=== PATIENT | female | born 1945 | race Caucasian/White ===

== ENCOUNTER 2019-09-29 10:51 | Outpatient (CLI) | payer MEDICARE, SELFPAY ==
[2019-09-29 11:25] LABS: Hematocrit 31.5 % (37.0-47.0); Hemoglobin 10.2 g/dL (12.0-15.0); Mean Corpuscular HGB Conc 32.4 g/dl (32-36); Mean Corpuscular Hemoglobin 29.1 pg (26-34); Mean Corpuscular Volume 89.7 fl (80-100); Mean Platelet Volume 9.5 fl (7.4-10.4); Platelet Count Result 372 k/mm3 (150-375); Red Blood Count 3.51 M/mm3 (4.2-5.4); Red Cell Distribution Width 14.2 % (11.5-14.5); White Blood Count 6.4 K/mm3 (4.5-10.0)
[2019-09-29 11:39] LABS: Alanine Aminotransferase 21 U/L (4-35); Albumin Level 4.3 g/dL (3.5-5.1); Alkaline Phosphatase 122 U/L (38-126); Aspartate Amino Transferase 31 U/L (14-36); Bilirubin,Total 0.4 mg/dL (0.2-1.3); Blood Urea Nitrogen 19 mg/dL (7-17); Calcium 9.2 mg/dL (8.4-10.2); Carbon Dioxide 28 mmol/L (22-30); Chloride 101 mmol/L (98-107); Cholesterol 203 mg/dL (0-200); Estimated Glomerular Filt Rate > 60; Glucose 90 mg/dL (65-105); HDL Direct 70 mg/dL; Potassium 4.3 mmol/L (3.4-5.0); Sodium 135 mmol/L (137-145); Triglycerides 69 mg/dL (<150)
[2019-09-29 11:52] LABS: LDL Cholesterol Direct 109 mg/dL
[2019-09-29 12:20] LABS: Iron 125 ug/dL (37-170)
[2019-09-29 12:30] LABS: Percent Iron Saturation 40 % (20-50)
[2019-09-29 12:37] LABS: Free T4 Free Thyroxine 0.88 ng/mL (0.78-2.19)
[2019-09-29 12:45] LABS: Folic Acid > 20.0 ng/mL (2.76->20)
== END 2019-09-29 10:52 | disposition home or self-care (01) ==
PROVIDERS: PCP Internal Medicine; Visit Provider Internal Medicine
DX: I10 Essential (primary) hypertension (principal); E03.9 Hypothyroidism, unspecified; E78.5 Hyperlipidemia, unspecified; R53.83 Other fatigue; D64.9 Anemia, unspecified
CPT/HCPCS: 36415; 80053; 80061; 82607; 82746; 83540; 83550; 84439; 84443; 85027

== ENCOUNTER 2019-10-23 16:10 | Emergency (ER) | payer MEDICARE, SELFPAY ==
--- NOTE | ~2019-10-23 | XR_ITS ---
EXAMINATION: XR hand RT min 3V INDICATION: Right hand pain TECHNIQUE: Three views of the right hand are obtained. COMPARISON: None available FINDINGS: Evaluation of the fourth proximal phalanx is slightly limited by a ring on the finger. No f racture, dislocation, or subluxation is identified. There is moderate to severe osteoarthritis involv ing multiple interphalangeal joints. Dorsal soft tissue swelling is seen overlying the metacarpals wi thout underlying osseous abnormality. IMPRESSION: 1. Dorsal soft tissue swelling of the hand overlying the metacarpals without underlying osseous abnor mality. 2. Polyarticular osteoarthritis. Reviewed, dictated and finalized at location A. IMPRESSION: 1. Dorsal soft tissue swelling of the hand overlying the metacarpals without un derlying osseous abnormality. 2. Polyarticular osteoarthritis.
[2019-10-23 17:07] VITALS: BP 177/55; PULSE 76; RESP 16; TEMP 37.1; O2SAT 97
--- NOTE | 2019-10-23 19:20 | ED.WOUNDLAC ---
HPI - Wound/Laceration General Chief Complaint: Wound/Laceration Stated Complaint: BIT BY MY DOG Time Seen by Provider: 10/23/19 19:13 History of Present Illness HPI narrative: Patient is a 73-year-old female who presents the ER with dog bite to her right hand. Patient thought her Labrador had a burst stuck to it and she pulled on it and apparently hurt the dog which then bit at her. She has a large laceration over the dorsum of her hand. No new numbness or tingling to the fingers. No no limitation in range of motion from the bite but she does have some arthritis of her fingers and hand. Her tetanus shot is not up-to-date but the dog's shots are all up-to-date. She has wrapped her hand and bleeding is controlled. No additional injuries. Related Data Home Medications Medication Instructions Recorded Confirmed estradiol 0.5 mg DAILY 04/04/19 05/05/19 lisinopril 20 mg DAILY 04/04/19 05/05/19 methadone 5 mg Q3-6H 04/04/19 05/05/19 omeprazole 40 mg DAILY 04/04/19 05/05/19 ondansetron HCl 4 mg tablet 4 mg PO Q6H 05/10/19 vexybx-hgrwrffh-gxpsegj 1 cap PO BID 09/20/19 24,000-76,000-120,000 unit capsule,delayed rel Allergies Allergy/AdvReac Type Severity Reaction Status Date / Time morphine Allergy Severe Vomiting Verified 09/20/19 10:45 nalbuphine Allergy Severe Vomiting Verified 09/20/19 10:45 Sulfa (Sulfonamide Allergy Severe Vomiting Verified 09/20/19 10:45 Antibiotics) Review of Systems Musculoskeletal: Musculoskeletal: Denies arthralgias, Denies joint swelling and Denies muscle cramps Integumentary/Breasts: Comments: Laceration dorsum of right hand. Neurologic: Denies focal weakness and Denies numbness [facility] Past Medical History Medical History (Updated 10/23/19 @ 20:36 by Guero Jean MD) Anemia Arthritis Asthma Cervical spine fracture Chronic back pain DDD (degenerative disc disease) Degenerative arthritis of knee, bilateral Duodenal papillary stenosis Endometriosis GERD (gastroesophageal reflux disease) History of rectal polyps HTN (hypertension) Hypothyroid IBS (irritable bowel syndrome) MVP (mitral valve prolapse) Osteoporosis Peripheral neuropathy PVD (peripheral vascular disease) Shingles Surgical History Surgical History H/O bilateral cataract extraction H/O cervical spine surgery H/O colonoscopy H/O dilation and curettage H/O removal of cyst H/O rotator cuff surgery H/O: hysterectomy History of lumbar surgery (~2000) Hx of appendectomy Hx of cholecystectomy Hx of tonsillectomy Social History Social History Smoking status: Never smoker Second hand tobacco smoke exposure: No Alcohol intake: never Additional living arrangements comments: S[facility] Gender identity (if verbalized by the patient): Female Exam Narrative: Exam Narrative: GENERAL: Well-appearing, well-nourished, and in no acute distress. HEAD: Normocephalic, atraumatic. HEART: Regular rate and rhythm. Normal peripheral pulses. EXTREMITIES: Focused exam of the right hand shows intact range of motion of the wrist/fingers with no sharp or soft touch abnormality. Radial pulses intact with brisk capillary refill. SKIN: Warm, dry, no rash. Laceration to the dorsum of the right hand that is exposing a superficial vein the hand. Deep structures intact. Laceration measures 5.5 cm and is a flap without foreign body in a bloodless field. NEURO: No focal deficits. Alert and oriented x3. PSYCH: Normal mood and affect. Course Course Emergency Course: Wound was loosely approximated given that is a bite injury. Discharged with Augmentin and [place]. Patient plans to follow-up with Dr. Andrews the hand surgeon in [facility]. Vital Signs Vital signs: Vital Signs Temperature 98.7 F 10/23/19 17:07 Pulse Rate 76 10/23/19 17:07 Respiratory Rate 16 10/23/19 17:07 Blood Pressure 177/55 H 06/2
[2019-10-23 19:32] VITALS: BP 192/82; PULSE 77; O2SAT 100
[2019-10-23] MEDS: TETANUS,DIPHTHERIA,AC PERTUSSIS ADULT (0.5 ML) BOOSTRIX IM (19:56)
[2019-10-23] MEDS: LIDO 1%/EPINEPHRINE 1:100,000 20 ML VIAL 5 ML INFILTRATE (20:42)
[2019-10-23 21:36] VITALS: BP 139/90; PULSE 84; O2SAT 98
== END 2019-10-23 20:56 | disposition home or self-care (01) ==
PROVIDERS: Emergency Provider Emergency Medicine; PCP Internal Medicine
DX: S61.451A Open bite of right hand, initial encounter (principal); Z86.2 Personal history of diseases of the blood and blood-forming organs and certain disorders involving the immune mechanism; M19.90 Unspecified osteoarthritis, unspecified site; J45.909 Unspecified asthma, uncomplicated; M17.0 Bilateral primary osteoarthritis of knee; I10 Essential (primary) hypertension; E03.9 Hypothyroidism, unspecified; I34.1 Nonrheumatic mitral (valve) prolapse; M81.0 Age-related osteoporosis without current pathological fracture; I73.9 Peripheral vascular disease, unspecified; G62.9 Polyneuropathy, unspecified; Z98.42 Cataract extraction status, left eye; Z98.41 Cataract extraction status, right eye; M19.041 Primary osteoarthritis, right hand; Z23 Encounter for immunization; W54.0XXA Bitten by dog, initial encounter
CPT/HCPCS: 12002; 73130; 90471; 90715; 99283; A9270

== ENCOUNTER 2019-12-14 11:35 | Outpatient (CLI) | payer MEDICARE, SELFPAY ==
--- NOTE | ~2019-12-14 | XR_ITS ---
XR chest 2V DATE: 12/14/2019 11:55 INDICATION: Persistent cough; Covid infection for 2 weeks. TECHNIQUE: PA and lateral views COMPARISON: 02/17/2019 PA and lateral chest FINDINGS: There is bilateral hyperinflation consistent with COPD. No interval pulmonary infiltrate or consolidation, pleural effusion or pulmonary vascular congestion or pneumothorax is detected since . Normal heart size. No hilar or mediastinal enlargement. Surgical clips overlie the lower mid cervical area. There is apparent resection of the lateral aspect of the right clavicle. There is some calcification overlying the superior aspect of the greater tuberosity. Surgical clips overlie the upper anterior abdomen on lateral view. IMPRESSION: Bilateral hyperinflation consistent with COPD; no interval pulmonary infiltrate or consol idation Reviewed, dictated and finalized at location A. IMPRESSION: Bilateral hyperinflation consistent with COPD; no interval pulmonar y infiltrate or consolidation
[2019-12-14 12:02] LABS: Basophils Absolute Auto 0.1 K/mm3 (0.0-0.1); Basophils Percent Auto 1.2 % (0.2-1.2); Eosinophils Absolute Auto 0.1 K/mm3 (0-0.3); Eosinophils Percent Auto 1.8 % (0-4.4); Hematocrit 32.9 % (37.0-47.0); Hemoglobin 10.6 g/dL (12.0-15.0); Immature Granulocyte Absolute 0.01 K/mm3 (0.00-0.031); Immature Granulocyte Percent A 0.1 % (0-0.5); Lymphocytes Absolute Auto 2.89 K/mm3 (0.9-3.2); Lymphocytes Percent Auto 42.9 % (18.3-44.2); Mean Corpuscular HGB Conc 32.2 g/dl (32-36); Mean Corpuscular Hemoglobin 28.8 pg (26-34); Mean Corpuscular Volume 89.4 fl (80-100); Mean Platelet Volume 9.3 fl (7.4-10.4); Monocytes Absolute Auto 0.7 K/mm3 (0.1-0.6); Monocytes Percent Auto 9.9 % (2.6-8.5); Neutrophils Percent Auto 44.1 % (45.5-73.1); Platelet Count Result 566 k/mm3 (150-375); Red Blood Count 3.68 M/mm3 (4.2-5.4); Red Cell Distribution Width 12.8 % (11.5-14.5); White Blood Count 6.7 K/mm3 (4.5-10.0)
[2019-12-14 12:15] LABS: Alanine Aminotransferase 28 U/L (4-35); Albumin Level 4.1 g/dL (3.5-5.1); Alkaline Phosphatase 133 U/L (38-126); Anion Gap 11 mmol/L (8-16); Aspartate Amino Transferase 43 U/L (14-36); Bilirubin,Total 0.2 mg/dL (0.2-1.3); Blood Urea Nitrogen 19 mg/dL (7-17); Calcium 9.3 mg/dL (8.4-10.2); Carbon Dioxide 30 mmol/L (22-30); Chloride 97 mmol/L (98-107); Estimated Glomerular Filt Rate 49; Glucose 113 mg/dL (65-105); Potassium 3.9 mmol/L (3.4-5.0); Sodium 138 mmol/L (137-145)
[2019-12-14 12:46] LABS: Thyroid Stimulating Hormone 0.274 uIU/mL (0.465-4.680)
[2019-12-14 13:23] LABS: Folic Acid > 20.0 ng/mL (2.76->20); Vitamin B12 > 1000.0 pg/mL (239-931)
== END 2019-12-14 11:36 | disposition home or self-care (01) ==
LOC: ANHLAB 11:39
PROVIDERS: PCP Internal Medicine; Visit Provider Internal Medicine
DX: R05 Cough (principal); R53.83 Other fatigue; R91.8 Other nonspecific abnormal finding of lung field
CPT/HCPCS: 36415; 71046; 80053; 82607; 82746; 84443; 85025

== ENCOUNTER 2020-05-10 16:25 | Outpatient (CLI) | payer MEDICARE, SELFPAY ==
[2020-05-10 16:55] LABS: Basophils Percent Auto 0.5 % (0.2-1.2); Eosinophils Absolute Auto 0.3 K/mm3 (0-0.3); Eosinophils Percent Auto 3.4 % (0-4.4); Hematocrit 31.7 % (37.0-47.0); Hemoglobin 10.2 g/dL (12.0-15.0); Immature Granulocyte Absolute 0.03 K/mm3 (0.00-0.031); Immature Granulocyte Percent A 0.4 % (0-0.5); Lymphocytes Absolute Auto 1.32 K/mm3 (0.9-3.2); Lymphocytes Percent Auto 17.7 % (18.3-44.2); Mean Corpuscular HGB Conc 32.2 g/dl (32-36); Mean Corpuscular Hemoglobin 29.8 pg (26-34); Mean Corpuscular Volume 92.7 fl (80-100); Mean Platelet Volume 9.4 fl (7.4-10.4); Monocytes Absolute Auto 0.9 K/mm3 (0.1-0.6); Monocytes Percent Auto 12.3 % (2.6-8.5); Neutrophils Absolute Auto 4.9 K/mm3 (1.3-6.7); Neutrophils Percent Auto 65.7 % (45.5-73.1); Platelet Count Result 335 k/mm3 (150-375); Red Blood Count 3.42 M/mm3 (4.2-5.4); Red Cell Distribution Width 13.2 % (11.5-14.5); White Blood Count 7.5 K/mm3 (4.5-10.0)
[2020-05-10 17:08] LABS: Alanine Aminotransferase 33 U/L (4-35); Alkaline Phosphatase 113 U/L (38-126); Anion Gap 6 mmol/L (8-16); Aspartate Amino Transferase 39 U/L (14-36); Bilirubin,Total 0.5 mg/dL (0.2-1.3); Blood Urea Nitrogen 16 mg/dL (7-17); Carbon Dioxide 30 mmol/L (22-30); Chloride 97 mmol/L (98-107); Estimated Glomerular Filt Rate > 60; Glucose 103 mg/dL (65-105); Potassium 4.6 mmol/L (3.4-5.0); Sodium 133 mmol/L (137-145)
[2020-05-10 17:38] LABS: Thyroid Stimulating Hormone 0.151 uIU/mL (0.465-4.680)
[2020-05-10 18:13] LABS: Folic Acid 17.8 ng/mL (2.76->20)
[2020-05-10 18:46] LABS: Iron 72 ug/dL (37-170)
[2020-05-10 18:55] LABS: Percent Iron Saturation 22 % (20-50)
[2020-05-10 19:04] LABS: Free T4 Free Thyroxine 1.12 ng/mL (0.78-2.19)
[2020-05-13 11:48] LABS: Vitamin D 25 Hydroxy 23.3 ng/mL
== END 2020-05-10 16:26 | disposition home or self-care (01) ==
LOC: ANHLAB 16:27
PROVIDERS: PCP Internal Medicine; Visit Provider Internal Medicine
DX: R53.83 Other fatigue (principal); E03.9 Hypothyroidism, unspecified; D64.9 Anemia, unspecified; R79.89 Other specified abnormal findings of blood chemistry
CPT/HCPCS: 36415; 80053; 82306; 82607; 82746; 83540; 83550; 84439; 84443; 85025

== ENCOUNTER 2020-09-19 10:55 | Outpatient (CLI) | payer MEDICARE, SELFPAY ==
[2020-09-19 12:06] LABS: Iron 75 ug/dL (37-170)
[2020-09-19 12:23] LABS: Percent Iron Saturation 24 % (20-50)
[2020-09-19 12:24] LABS: Free T4 Free Thyroxine 1.29 ng/mL (0.78-2.19)
[2020-09-19 14:07] LABS: Basophils Absolute Auto 0.1 K/mm3 (0.0-0.1); Basophils Percent Auto 0.9 % (0.2-1.2); Eosinophils Absolute Auto 0.2 K/mm3 (0-0.3); Eosinophils Percent Auto 2.5 % (0-4.4); Hematocrit 32.3 % (37.0-47.0); Hemoglobin 10.1 g/dL (12.0-15.0); Immature Granulocyte Absolute 0.02 K/mm3 (0.00-0.031); Immature Granulocyte Percent A 0.3 % (0-0.5); Lymphocytes Absolute Auto 2.11 K/mm3 (0.9-3.2); Lymphocytes Percent Auto 27.5 % (18.3-44.2); Mean Corpuscular HGB Conc 31.3 g/dl (32-36); Mean Corpuscular Hemoglobin 29.1 pg (26-34); Mean Corpuscular Volume 93.1 fl (80-100); Mean Platelet Volume 9.7 fl (7.4-10.4); Monocytes Absolute Auto 0.6 K/mm3 (0.1-0.6); Monocytes Percent Auto 7.7 % (2.6-8.5); Neutrophils Absolute Auto 4.7 K/mm3 (1.3-6.7); Neutrophils Percent Auto 61.1 % (45.5-73.1); Platelet Count Result 337 k/mm3 (150-375); Red Blood Count 3.47 M/mm3 (4.2-5.4); Red Cell Distribution Width 14.1 % (11.5-14.5); White Blood Count 7.7 K/mm3 (4.5-10.0)
[2020-09-19 17:24] LABS: Vitamin D 25 Hydroxy 37.6 ng/mL
[2020-09-19 18:56] LABS: Alanine Aminotransferase 17 U/L (4-35); Albumin Level 4.4 g/dL (3.5-5.1); Alkaline Phosphatase 93 U/L (38-126); Anion Gap 8 mmol/L (8-16); Aspartate Amino Transferase 30 U/L (14-36); Bilirubin,Total 0.2 mg/dL (0.2-1.3); Blood Urea Nitrogen 20 mg/dL (7-17); Calcium 9.9 mg/dL (8.4-10.2); Carbon Dioxide 29 mmol/L (22-30); Chloride 103 mmol/L (98-107); Cholesterol 187 mg/dL (0-200); Estimated Glomerular Filt Rate 54; Glucose 90 mg/dL (65-105); HDL Direct 71 mg/dL; Potassium 4.8 mmol/L (3.4-5.0); Sodium 140 mmol/L (137-145); Triglycerides 72 mg/dL (<150)
[2020-09-19 19:07] LABS: LDL Cholesterol Direct 87 mg/dL
[2020-09-19 19:27] LABS: Thyroid Stimulating Hormone 0.036 uIU/mL (0.465-4.680)
[2020-09-19 20:02] LABS: Folic Acid 14.7 ng/mL (2.76->20)
== END 2020-09-19 10:56 | disposition home or self-care (01) ==
PROVIDERS: PCP Internal Medicine; Referring Provider Physician Assistant; Visit Provider Internal Medicine
DX: R53.83 Other fatigue (principal); E03.9 Hypothyroidism, unspecified; D64.9 Anemia, unspecified; E78.5 Hyperlipidemia, unspecified; E55.9 Vitamin D deficiency, unspecified
CPT/HCPCS: 36415; 80053; 80061; 82306; 82607; 82746; 83540; 83550; 84439; 84443; 85025

== ENCOUNTER 2021-02-17 09:00 | Outpatient (CLI) | payer MEDICARE, SELFPAY ==
[2021-02-17 10:11] LABS: Basophils Absolute Auto 0.1 K/mm3 (0.0-0.1); Basophils Percent Auto 0.4 % (0.2-1.2); Eosinophils Absolute Auto 0.1 K/mm3 (0-0.3); Eosinophils Percent Auto 0.8 % (0-4.4); Hematocrit 31.5 % (37.0-47.0); Immature Granulocyte Absolute 0.11 K/mm3 (0.00-0.031); Immature Granulocyte Percent A 0.6 % (0-0.5); Lymphocytes Percent Auto 28.6 % (18.3-44.2); Mean Corpuscular HGB Conc 31.7 g/dl (32-36); Mean Corpuscular Hemoglobin 29.4 pg (26-34); Mean Corpuscular Volume 92.6 fl (80-100); Mean Platelet Volume 9.8 fl (7.4-10.4); Monocytes Absolute Auto 1.2 K/mm3 (0.1-0.6); Neutrophils Absolute Auto 10.7 K/mm3 (1.3-6.7); Neutrophils Percent Auto 62.6 % (45.5-73.1); Platelet Count Result 467 k/mm3 (150-375); Red Cell Distribution Width 14.4 % (11.5-14.5); White Blood Count 17.1 K/mm3 (4.5-10.0)
[2021-02-17 10:28] LABS: Alanine Aminotransferase 21 U/L (4-35); Albumin Level 4.3 g/dL (3.5-5.1); Alkaline Phosphatase 84 U/L (38-126); Anion Gap 4 mmol/L (8-16); Aspartate Amino Transferase 26 U/L (14-36); Bilirubin,Total 0.3 mg/dL (0.2-1.3); Blood Urea Nitrogen 23 mg/dL (7-17); Calcium 9.2 mg/dL (8.4-10.2); Carbon Dioxide 33 mmol/L (22-30); Chloride 102 mmol/L (98-107); Estimated Glomerular Filt Rate > 60; Glucose 95 mg/dL (65-110); Potassium 4.1 mmol/L (3.4-5.0); Sodium 139 mmol/L (137-145)
[2021-02-17 10:59] LABS: Cortisol Random 1.29 ug/dL; Thyroid Stimulating Hormone 0.066 uIU/mL (0.465-4.680)
[2021-02-17 11:12] LABS: Iron 71 ug/dL (37-170)
[2021-02-17 11:25] LABS: Percent Iron Saturation 22 % (20-50)
[2021-02-17 12:08] LABS: Free T4 Free Thyroxine 1.41 ng/mL (0.78-2.19)
[2021-02-17 13:04] LABS: Vitamin D 25 Hydroxy 24.5 ng/mL
[2021-02-19 18:33] LABS: Adrenocorticotropic Hormone <5 pg/mL (6-50)
[2021-02-20 04:32] LABS: Triiodothyronine T3 Free 2.4 pg/mL (2.3-4.2)
[2021-02-21 04:13] LABS: Thyroid Peroxidase Antibodies 54 IU/mL (<9)
== END 2021-02-17 09:01 | disposition home or self-care (01) ==
LOC: ANHLAB 09:16
PROVIDERS: PCP Internal Medicine; Visit Provider Internal Medicine Endocrinology, Diabetes & Metabolism
DX: E03.9 Hypothyroidism, unspecified (principal); R53.83 Other fatigue; E55.9 Vitamin D deficiency, unspecified
CPT/HCPCS: 36415; 80053; 82024; 82306; 82533; 82728; 83540; 83550; 84439; 84443; 84481; 85025; 86376

== ENCOUNTER → 2021-03-05 07:52 | Outpatient (CLI) | payer MEDICARE, SELFPAY ==
[2021-03-05 17:30] LABS: SARS-CoV-2 RNA PCR Negative
== END ==
PROVIDERS: PCP Internal Medicine; Visit Provider Internal Medicine
DX: R05.9 Cough, unspecified (principal); Z20.822 Contact with and (suspected) exposure to COVID-19
CPT/HCPCS: C9803; U0003; U0005

== ENCOUNTER 2021-05-27 09:19 | Outpatient (CLI) | payer MEDICARE, SELFPAY ==
--- NOTE | ~2021-05-27 | CT_ITS ---
EXAMINATION: CT abdomen w con DATE: 05/27/2021 10:05 INDICATION: Epigastric pain TECHNIQUE: Computed tomography (CT) of the abdomen and pelvis was performed with 100 cc Omnipaque 350 intravenous contrast. The dose-length product was 114.24 mGy-cm. Automated exposure control and iter ative reconstruction technique were employed. COMPARISON: CT dated 11/18/2018. FINDINGS: There is right middle lobe atelectasis with bronchiectasis. No significant pleural or peric ardial effusion. Heart size is normal. Status post cholecystectomy. There is pneumobilia. There are c alcified granulomas of the spleen. There is pancreatic atrophy. The adrenal glands and left kidney are unremarkable. There is a cyst of the right kidney posteriorly. No acute osseous abnormality. No free air or free fluid. Nonobstructive bowel gas pattern. Mild assistant grocery store manager kiana mesenteric infiltration, nonspecific. IMPRESSION: 1. No acute abdominal abnormality. 2: Chronic right middle lobe atelectasis/scarring with bronchiectasis. Reviewed, dictated and finalized at location B. CONTROL SPECIALIST
[2021-05-27 09:59] LABS: Estimated Glomerular Filt Rate 40
[2021-05-27 10:28] LABS: Hematocrit 30.5 % (37.0-47.0); Hemoglobin 9.8 g/dL (12.0-15.0); Mean Corpuscular HGB Conc 32.1 g/dl (32-36); Mean Corpuscular Volume 90.2 fl (80-100); Mean Platelet Volume 9.8 fl (7.4-10.4); Platelet Count Result 281 k/mm3 (150-375); Red Blood Count 3.38 M/mm3 (4.2-5.4); Red Cell Distribution Width 12.5 % (11.5-14.5); White Blood Count 6.5 K/mm3 (4.5-10.0)
[2021-05-27 10:44] LABS: Alanine Aminotransferase 14 U/L (4-35); Albumin Level 4.1 g/dL (3.5-5.1); Alkaline Phosphatase 92 U/L (38-126); Amylase 75 U/L (30-110); Anion Gap 8 mmol/L (8-16); Aspartate Amino Transferase 28 U/L (14-36); Bilirubin,Total 0.4 mg/dL (0.2-1.3); Blood Urea Nitrogen 22 mg/dL (7-17); Calcium 9.3 mg/dL (8.4-10.2); Carbon Dioxide 27 mmol/L (22-30); Chloride 97 mmol/L (98-107); Estimated Glomerular Filt Rate 44; Glucose 96 mg/dL (65-110); Lipase 60 U/L (23-300); Potassium 4.7 mmol/L (3.4-5.0); Sodium 132 mmol/L (137-145)
== END 2021-05-27 09:20 | disposition home or self-care (01) ==
LOC: ANHIMG 09:27
PROVIDERS: PCP Internal Medicine; Visit Provider Nurse Practitioner
DX: R14.0 Abdominal distension (gaseous) (principal); R10.31 Right lower quadrant pain; R68.81 Early satiety; R11.2 Nausea with vomiting, unspecified
CPT/HCPCS: 74160; 80048; 80076; 82150; 83690; 85027; Q9967

== ENCOUNTER 2021-06-12 12:23 | Outpatient (CLI) | payer MEDICARE, SELFPAY ==
--- NOTE | 2021-06-12 13:16 | ECG_ITS ---
Measurements Intervals [place] Rate: 73 P: 81 MS: 167 QRS: 48 QRSD: 83 T: 59 QT: 403 QTc: 445 Interpretive Statements SINUS RHYTHM ATRIAL PREMATURE COMPLEXES BASELINE WANDER- I, II, V3 BORDERLINE ECG Electronically Signed On 06-12-2021 14:16:42 COREMAKING MACHINE OPERATOR by Felix Campos D.O.
[2021-06-12 13:17] LABS: Hematocrit 32.9 % (37.0-47.0); Hemoglobin 10.6 g/dL (12.0-15.0); Immature Reticulocyte Fraction 6.8 % (3.0-15.9); Mean Corpuscular HGB Conc 32.2 g/dl (32-36); Mean Corpuscular Hemoglobin 29.4 pg (26-34); Mean Corpuscular Volume 91.4 fl (80-100); Mean Platelet Volume 9.9 fl (7.4-10.4); Platelet Count Result 321 k/mm3 (150-375); Reticulocyte Hemoglobin Conten 33.8 pg (28.2-35.7); Reticulocyte Percent 0.85 % (0.7-4.3); Reticulocytes Absolute 0.03 B/L (32.2-175.7); White Blood Count 14.6 K/mm3 (4.5-10.0)
[2021-06-12 13:37] LABS: Iron 119 ug/dL (37-170)
[2021-06-12 14:50] LABS: Folic Acid 11.4 ng/mL (2.76->20); Vitamin B12 > 1000.0 pg/mL (239-931)
[2021-06-15 13:43] LABS: Haptoglobin 180 mg/dL (43-212)
[2021-06-17 14:02] LABS: Hemoglobin 10.5 g/dL (11.7-15.5); MCH 29.8 pg (27.0-33.0); MCV 91.1 fL (80.0-100.0); RDW 13.9 % (11.0-15.0); Red Blood Cell Count 3.51 Mill/uL (3.80-5.10)
== END 2021-06-12 12:24 | disposition home or self-care (01) ==
PROVIDERS: PCP Internal Medicine; Visit Provider Internal Medicine Gastroenterology
DX: I49.9 Cardiac arrhythmia, unspecified (principal); R63.4 Abnormal weight loss; D64.9 Anemia, unspecified; K21.9 Gastro-esophageal reflux disease without esophagitis; R10.84 Generalized abdominal pain; K86.1 Other chronic pancreatitis; R94.31 Abnormal electrocardiogram [ECG] [EKG]
CPT/HCPCS: 36415; 82607; 82746; 83010; 83021; 83540; 85027; 85046; 93005

== ENCOUNTER 2021-06-18 10:36 | Outpatient (CLI) | payer MEDICARE, SELFPAY ==
[2021-06-18 11:49] LABS: Vitamin D 25 Hydroxy 39.9 ng/mL
[2021-06-18 12:37] LABS: Cortisol Random 6.16 ug/dL
[2021-06-18 13:18] LABS: Folic Acid 17.1 ng/mL (2.76->20); Vitamin B12 > 1000.0 pg/mL (239-931)
[2021-06-23 04:59] LABS: Adrenocorticotropic Hormone 20 pg/mL (6-50)
== END 2021-06-18 10:37 | disposition home or self-care (01) ==
PROVIDERS: PCP Internal Medicine; Visit Provider Internal Medicine Endocrinology, Diabetes & Metabolism
DX: E55.9 Vitamin D deficiency, unspecified (principal); R53.83 Other fatigue; E53.8 Deficiency of other specified B group vitamins
CPT/HCPCS: 36415; 82024; 82306; 82533; 82607; 82746

== ENCOUNTER 2021-09-27 07:45 | Outpatient (CLI) | payer MEDICARE, SELFPAY ==
[2021-09-27 08:30] LABS: Alanine Aminotransferase 15 U/L (6-35); Albumin Level 4.4 g/dL (3.5-5.1); Alkaline Phosphatase 111 U/L (38-126); Anion Gap 5 mmol/L (8-16); Aspartate Amino Transferase 30 U/L (14-36); Bilirubin,Total 0.3 mg/dL (0.2-1.3); Blood Urea Nitrogen 20 mg/dL (7-17); CRP 0.5 mg/dL (<1.0); Calcium 9.4 mg/dL (8.4-10.2); Carbon Dioxide 32 mmol/L (22-30); Chloride 100 mmol/L (98-107); Estimated Glomerular Filt Rate > 60; Glucose 93 mg/dL (65-110); Potassium 4.3 mmol/L (3.4-5.0); Rheumatoid Factor < 8.6 IU/ML (<12); Sodium 137 mmol/L (137-145)
[2021-09-27 09:15] LABS: Free T4 Free Thyroxine 1.21 ng/mL (0.78-2.19); Vitamin D 25 Hydroxy 40.6 ng/mL
[2021-09-27 09:36] LABS: Folic Acid > 20.0 ng/mL (2.76->20); Vitamin B12 > 1000.0 pg/mL (239-931)
[2021-09-27 10:04] LABS: Erythrocyte Sedimentation Rate 66 mm/hr (0-20)
[2021-09-30 05:57] LABS: Thyroid Peroxidase Antibodies 53 IU/mL (<9)
[2021-09-30 20:07] LABS: Triiodothyronine T3 Free 2.5 pg/mL (2.3-4.2)
== END 2021-09-27 07:46 | disposition home or self-care (01) ==
LOC: ANHLAB 07:54
PROVIDERS: PCP Internal Medicine; Visit Provider Nurse Practitioner
DX: M79.641 Pain in right hand (principal); E03.9 Hypothyroidism, unspecified; E55.9 Vitamin D deficiency, unspecified; E53.8 Deficiency of other specified B group vitamins
CPT/HCPCS: 36415; 80053; 82306; 82607; 82746; 84439; 84443; 84481; 85652; 86140; 86376; 86430

== ENCOUNTER 2021-10-10 08:23 | Outpatient (CLI) | payer MEDICARE, SELFPAY ==
[2021-10-10 09:43] LABS: Basophils Absolute Auto 0.1 K/mm3 (0.0-0.1); Basophils Percent Auto 1.1 % (0.2-1.2); Eosinophils Absolute Auto 0.4 K/mm3 (0-0.3); Eosinophils Percent Auto 4.7 % (0-4.4); Hematocrit 32.2 % (37.0-47.0); Hemoglobin 10.1 g/dL (12.0-15.0); Immature Granulocyte Absolute 0.02 K/mm3 (0.00-0.031); Immature Granulocyte Percent A 0.3 % (0-0.5); Lymphocytes Absolute Auto 2.92 K/mm3 (0.9-3.2); Mean Corpuscular HGB Conc 31.4 g/dl (32-36); Mean Corpuscular Hemoglobin 29.3 pg (26-34); Mean Corpuscular Volume 93.3 fl (80-100); Mean Platelet Volume 10.5 fl (7.4-10.4); Monocytes Absolute Auto 0.9 K/mm3 (0.1-0.6); Monocytes Percent Auto 11.7 % (2.6-8.5); Neutrophils Absolute Auto 3.2 K/mm3 (1.3-6.7); Neutrophils Percent Auto 43.2 % (45.5-73.1); Platelet Count Result 338 k/mm3 (150-375); Red Blood Count 3.45 M/mm3 (4.2-5.4); Red Cell Distribution Width 12.9 % (11.5-14.5); White Blood Count 7.5 K/mm3 (4.5-10.0)
[2021-10-10 10:40] LABS: Iron 73 ug/dL (37-170)
[2021-10-10 10:49] LABS: Percent Iron Saturation 25 % (20-50)
== END 2021-10-10 08:24 | disposition home or self-care (01) ==
PROVIDERS: PCP Internal Medicine; Visit Provider Internal Medicine
DX: D64.9 Anemia, unspecified (principal); R70.0 Elevated erythrocyte sedimentation rate
CPT/HCPCS: 36415; 82728; 83540; 83550; 85025; 86038

== ENCOUNTER 2021-10-17 07:52 | Outpatient (CLI) | payer MEDICARE, SELFPAY ==
--- NOTE | ~2021-10-17 | NM_ITS ---
EXAMINATION: NM kaylene stress w perfusion DATE: 10/17/2021 12:45 CDT INDICATION: Dyspnea TECHNIQUE: Rest images were obtained following intravenous administration of 10.3 mCi Tc99m tetrofosm in (Myoview). The patient was infused intravenously with Lexiscan (regadenoson). Then, 29.7 mCi Tc99m tetrofosmin (Myoview) was administered intravenously, and stress images were obtained. Data was meli nstructed into short axis and horizontal and vertical long axis SPECT images. Gated SPECT images were also obtained. COMPARISON: None. FINDINGS: There is no definite reversible or fixed perfusion abnormality to suggest ischemia or infar ction. There is no segmental wall motion abnormality. Left ventricular ejection fraction measures 7 6%. IMPRESSION: 1. No definite ischemia or infarct. 2. Normal left ventricular ejection fraction measuring 76%. Reviewed, dictated and finalized at location A.
--- NOTE | 2021-10-17 08:29 | EST_ITS ---
Patient Info Name: Saray Park Age: 75 years : 1945 Gender: Female Ht: 62 in Wt: 130 lbs BSA: 1.62 m2 Exam Date: 10/17/2021 10:45 AM Exam Location: [facility] Stress Patient Status: Outpatient Admit Date: 10/17/2021 Staff Ordering Physician: Felix Campos DO Attending Provider: Felix Campos DO Exercise Technologist: Melanie Sosa RDCS Exercise Physician: Felix Campos DO Exam Type: CA stress kaylene w NM Study Info Indications R06.09 - Other forms of dyspnea A regadenoson stress test was performed. Summary 1. 1. Negative lexiscan stress test for ischemic ST changes by ECG criteria. 2. 2. Baseline hypertension. 3. 3. Nuclear scan to follow and will be reported separately. Please correlate with it. 4. 4. Patient informed of the above results. Protocol: Lexiscan Stress ECG Details Stage: REST Duration (min): 6 min : 41 sec HR (bpm): 65 SBP (mmHg): 145 DBP (mmHg): 75 Stage: REST Duration (min): 15 min : 12 sec HR (bpm): 64 SBP (mmHg): 145 DBP (mmHg): 75 Stage: STAGE 1 Duration (min): 0 min : 59 sec HR (bpm): 89 SBP (mmHg): 190 DBP (mmHg): 74 Stage: RECOVERY Duration (min): 1 min : 0 sec HR (bpm): 93 SBP (mmHg): 190 DBP (mmHg): 74 Stage: RECOVERY Duration (min): 2 min : 0 sec HR (bpm): 85 SBP (mmHg): 178 DBP (mmHg): 71 Stage: RECOVERY Duration (min): 3 min : 0 sec HR (bpm): 81 SBP (mmHg): 161 DBP (mmHg): 70 Stage: RECOVERY Duration (min): 3 min : 13 sec HR (bpm): 88 SBP (mmHg): 161 DBP (mmHg): 70 Rest HR: 64 bpm Peak HR: 97 bpm Rest Sys BP: 145 mmHg Peak Sys BP: 190 mmHg Max Pred HR: 146 bpm % Max Pred HR: 66 % Target HR: 124 bpm Max RPP: 18,430 bpm*mmHg Termination Reason: Completed protocol Cardiac Symptoms: flushed Total Time: 1 min : 0 sec Rest [place] BP: 75 mmHg Peak [place] BP: 74 mmHg Total Dose: 0.4 mg Resting ECG Sinus rhythm, PAC's. Stress ECG No ST changes. Arrhythmias None. Report Signatures
--- NOTE | 2021-10-17 08:29 | ECHO_ITS ---
Patient Info Name: Saray Park Age: 75 years : 1945 Gender: Female Ht: 62 in Wt: 130 lbs BSA: 1.62 m2 HR: 61 bpm BP: 141 / 67 mmHg Technical Quality: Fair Exam Date: 10/17/2021 8:54 AM Exam Location: [facility] Pulmonary Patient Status: Outpatient Admit Date: 10/17/2021 Staff Ordering Physician: Felix Campos DO Associate Professor Of Physics: Joe Ignacio RDCS, RT Attending Provider: Felix Campos DO Referring Physician: Andres GILMORE; Exam Type: CA echo doppler color flow Study Info Indications R06.00 - Dyspnea, unspecified Complete two-dimensional, color flow and Doppler transthoracic echocardiogram is performed. Strain analysis performed. Summary 1. Complete two-dimensional, color flow and Doppler transthoracic echocardiogram is performed. 2. Left ventricular chamber dimension is normal. 3. Left ventricular systolic function is normal, estimated at 60-65%. 4. The left ventricular diastolic function is grade I diastolic dysfunction. 5. E/e' 11 is mildly elevated. 6. Global longitudinal strain is normal at -18.8%. 7. Left atrial chamber dimension is mildly enlarged. 8. The aortic valve is not well visualized. Cannot determine number of aortic valve leaflets. 9. There is mild aortic valve stenosis based on a peak velocity of 169 cm/s, mean gradient of 6 mmHg, and aortic valve area of 1.6 cm2. 10. There is mild to moderate mitral valve regurgitation. 11. There is trace tricuspid valve regurgitation. 12. No pulmonary hypertension, estimated pulmonary arterial systolic pressure is 33 mmHg. Left Ventricle E/e' 11 is mildly elevated. Global longitudinal strain is normal at -18.8%. Left ventricular chamber dimension is normal. Left ventricular systolic function is normal, estimated at 60-65%. The left ventricular diastolic function is grade I diastolic dysfunction. Right Ventricle Right ventricular chamber dimension is normal. Right ventricular systolic function is normal. Left Atria Left atrial chamber dimension is mildly enlarged. Right Atria Right atrial chamber dimension is normal. Aortic Valve The aortic valve is not well visualized. Cannot determine number of aortic valve leaflets. There is mild aortic valve stenosis based on a peak velocity of 169 cm/s, mean gradient of 6 mmHg, and aortic valve area of 1.6 cm2. There is no aortic valve regurgitation. Pulmonic Valve There is no pulmonic regurgitation. Mitral Valve There is no mitral valve stenosis. There is mild to moderate mitral valve regurgitation. Tricuspid Valve There is trace tricuspid valve regurgitation. No pulmonary hypertension, estimated pulmonary arterial systolic pressure is 33 mmHg. Pericardium/Pleural There is no pericardial effusion. Inferior Vena Cava Normal inferior vena cava with >50% collapse upon inspiration consistent with normal right atrial pressure, 5 mmHg. Aorta The aortic root size at the sinus of Valsalva is normal. Left Ventricular Outflow Tract Name Value Normal LVOT 2D LVOT Diameter 1.9 cm LVOT Doppler LVOT Peak Gradient 4 mmHg LVOT Mean Gradient
== END 2021-10-17 07:53 | disposition home or self-care (01) ==
PROVIDERS: PCP Internal Medicine; Visit Provider Internal Medicine Cardiovascular Disease
DX: R06.00 Dyspnea, unspecified (principal)
CPT/HCPCS: 78452; 93017; 93306; A9502; J2785

== ENCOUNTER → 2021-12-25 08:45 | Outpatient (CLI) | payer MEDICARE, SELFPAY ==
--- NOTE | ~2021-12-25 | DEXA_ITS ---
Bone Density Report Name: MAYRA BHAGAT Age: 76 Sex: Female Ethnicity: White Date of : 1945 Indication: osteopenia; hysterectomy;postmenopausal Referring Provider: Randall, Milly Abernathy Study: Bone densitometry was performed. Exam Date: December 25, 2021 Accession number: [id number] Bone Density: Region BMD T-score Z-score Classification AP Spine (L1, L2) 0.908 -0.6 1.6 Normal Femoral Neck (Left) 0.610 -2.2 -0.1 Osteopenia Total Hip (Left) 0.801 -1.2 0.6 Osteopenia Femoral Neck (Right) 0.753 -0.9 1.2 Normal Total Hip (Right) 0.838 -0.9 0.9 Normal Total Hip Mean 0.820 -1.1 0.8 Osteopenia World Health Organization criteria for BMD impression classify patients as: Normal (T-score at or above -1.0), Osteopenia (T-score between -1.0 and -2.5), or Osteoporosis (T-score at or below -2.5). 10-year Fracture Risk(1): Major Osteoporotic Fracture 14% Hip Fracture 3.9% Reported Risk Factors: [place] (), Neck BMD=0.610, BMI=24.6 (1) FRAX(R) Version 3.08. Fracture probability calculated for an untreated patient. Fracture probability may be lower if the patient has received treatment. Previous Exams: Region Exam Age BMD T-score BMD Change BMD Change Date g/cm2 vs Baseline vs Previous AP Spine(L1, L2) 12/25/2021 76 0.908 -0.6 -0.020 0.066* 02/28/2010 64 0.842 -1.2 -0.087* -0.011 02/10/2008 62 0.853 -1.1 -0.076* -0.076* 12/01/2004 59 0.928 -0.5 Total Hip(Left) 12/25/2021 76 0.801 -1.2 -0.073* 0.042* 03/01/2012 66 0.759 -1.5 -0.115* 0.065* 02/28/2010 64 0.694 -2.0 -0.180* -0.052* 02/10/2008 62 0.746 -1.6 -0.129* -0.129* 12/01/2004 59 0.875 -0.6 Total Hip(Right) 12/25/2021 76 0.838 -0.9 -0.049* 0.100* 03/01/2012 66 0.738 -1.7 -0.149* 0.015 02/28/2010 64 0.724 -1.8 -0.164* -0.043* 02/10/2008 62 0.767 -1.4 -0.121* -0.121* 12/01/2004 59 0.888 -0.4 *Denotes significance at 95% confidence level, LSC for AP Spine = 0.022 g/cm2, LSC for Total Hip = 0.027 g/cm2 Clinical Information Provided by Patient: Has used the following medications: Vitamin D Has the following medical conditions: Hysterectomy Patient maximum height was 62.5 Menopause Age: 37 Drinks caffeinated beverages Onset of menses at age 12 Number of children 2
== END ==
PROVIDERS: PCP Internal Medicine; Visit Provider Internal Medicine Endocrinology, Diabetes & Metabolism
DX: N95.9 Unspecified menopausal and perimenopausal disorder (principal); M85.852 Other specified disorders of bone density and structure, left thigh; M85.851 Other specified disorders of bone density and structure, right thigh
CPT/HCPCS: 77080

== ENCOUNTER 2022-01-08 10:45 | Outpatient (CLI) | payer MEDICARE, SELFPAY ==
[2022-01-08 11:55] LABS: Basophils Absolute Auto 0.1 K/mm3 (0.0-0.1); Eosinophils Absolute Auto 0.4 K/mm3 (0-0.3); Eosinophils Percent Auto 5.1 % (0-4.4); Hematocrit 32.1 % (37.0-47.0); Hemoglobin 9.9 g/dL (12.0-15.0); Immature Granulocyte Absolute 0.01 K/mm3 (0.00-0.031); Immature Granulocyte Percent A 0.1 % (0-0.5); Lymphocytes Absolute Auto 2.69 K/mm3 (0.9-3.2); Lymphocytes Percent Auto 39.2 % (18.3-44.2); Mean Corpuscular HGB Conc 30.8 g/dl (32-36); Mean Corpuscular Hemoglobin 29.2 pg (26-34); Mean Corpuscular Volume 94.7 fl (80-100); Mean Platelet Volume 10.4 fl (7.4-10.4); Monocytes Absolute Auto 0.6 K/mm3 (0.1-0.6); Neutrophils Absolute Auto 3.1 K/mm3 (1.3-6.7); Neutrophils Percent Auto 45.6 % (45.5-73.1); Platelet Count Result 330 k/mm3 (150-375); Red Blood Count 3.39 M/mm3 (4.2-5.4); Red Cell Distribution Width 13.8 % (11.5-14.5); White Blood Count 6.9 K/mm3 (4.5-10.0)
[2022-01-08 12:21] LABS: Iron 70 ug/dL (37-170)
[2022-01-08 12:40] LABS: Erythrocyte Sedimentation Rate 40 mm/hr (0-20); Percent Iron Saturation 23 % (20-50)
== END 2022-01-08 10:46 | disposition home or self-care (01) ==
PROVIDERS: PCP Internal Medicine; Referring Provider Internal Medicine Endocrinology, Diabetes & Metabolism; Visit Provider Internal Medicine
DX: D64.9 Anemia, unspecified (principal); R70.0 Elevated erythrocyte sedimentation rate
CPT/HCPCS: 36415; 83540; 83550; 85025; 85652

== ENCOUNTER 2022-05-05 14:24 | Outpatient (CLI) | payer MEDICARE, SELFPAY ==
[2022-05-05 15:06] LABS: Basophils Absolute Auto 0.1 K/mm3 (0.0-0.1); Basophils Percent Auto 0.7 % (0.2-1.2); Eosinophils Absolute Auto 0.2 K/mm3 (0-0.3); Eosinophils Percent Auto 3.5 % (0-4.4); Hemoglobin 10.5 g/dL (12.0-15.0); Immature Granulocyte Absolute 0.01 K/mm3 (0.00-0.031); Immature Granulocyte Percent A 0.1 % (0-0.5); Immature Reticulocyte Fraction 6.6 % (3.0-15.9); Lymphocytes Absolute Auto 1.92 K/mm3 (0.9-3.2); Lymphocytes Percent Auto 28.4 % (18.3-44.2); Mean Corpuscular HGB Conc 31.8 g/dl (32-36); Mean Corpuscular Hemoglobin 29.7 pg (26-34); Mean Corpuscular Volume 93.2 fl (80-100); Mean Platelet Volume 9.5 fl (7.4-10.4); Monocytes Absolute Auto 0.5 K/mm3 (0.1-0.6); Neutrophils Percent Auto 59.3 % (45.5-73.1); Platelet Count Result 271 k/mm3 (150-375); Red Blood Count 3.54 M/mm3 (4.2-5.4); Red Cell Distribution Width 12.7 % (11.5-14.5); Reticulocyte Hemoglobin Conten 32.6 pg (28.2-35.7); Reticulocyte Percent 0.92 % (0.7-4.3); Reticulocytes Absolute 0.03 B/L (32.2-175.7); White Blood Count 6.8 K/mm3 (4.5-10.0)
[2022-05-05 21:09] LABS: Iron 116 ug/dL (37-170)
[2022-05-05 21:13] LABS: Alanine Aminotransferase 22 U/L (6-35); Albumin Level 4.1 g/dL (3.5-5.1); Alkaline Phosphatase 92 U/L (38-126); Anion Gap 6 mmol/L (8-16); Aspartate Amino Transferase 33 U/L (14-36); Bilirubin,Total 0.3 mg/dL (0.2-1.3); Blood Urea Nitrogen 19 mg/dL (7-17); Calcium 8.9 mg/dL (8.4-10.2); Carbon Dioxide 30 mmol/L (22-30); Chloride 103 mmol/L (98-107); Estimated Glomerular Filt Rate > 60; Glucose 85 mg/dL (65-110); Lactate Dehydrogenase 229 U/L (120-246); Potassium 4.4 mmol/L (3.4-5.0); Sodium 139 mmol/L (137-145)
[2022-05-05 21:19] LABS: Percent Iron Saturation 42 % (20-50)
[2022-05-05 22:19] LABS: Folic Acid 17.6 ng/mL (2.76->20)
[2022-05-07 10:27] LABS: Methylmalonic Acid 180 nmol/L (87-318)
[2022-05-08 18:55] LABS: Soluble Transferrin Receptor 0.72 mg/L (0.76-1.76)
== END 2022-05-05 14:25 | disposition home or self-care (01) ==
PROVIDERS: PCP Internal Medicine; Visit Provider Internal Medicine Hematology & Oncology
DX: D64.9 Anemia, unspecified (principal)
CPT/HCPCS: 36415; 80053; 82607; 82728; 82746; 83540; 83550; 83615; 83921; 84238; 85025; 85046

== ENCOUNTER 2022-07-23 14:31 | Outpatient (CLI) | payer MEDICARE, SELFPAY ==
[2022-07-23 15:36] LABS: Phosphorus 4.6 mg/dL (2.5-4.5)
[2022-07-23 15:50] LABS: Appearance Urine Clear (Clear); Bacteria Urine None Seen /hpf; Bilirubin Urine Negative (Negative); Blood Urine Negative (Negative); Color Urine Yellow (Yellow); Glucose Urine UA Negative (Negative); Ketones Urine Negative (Negative); Leukocyte Esterase Ur Trace LEU/UL (Negative); Nitrate Urine Negative (Negative); Non Pathogenic Casts 0-2; Protein Urine Negative (Negative); RBC Urine 0-2 /hpf (0-2); Specific Grav Ur 1.015 (1.001-1.035); Squamous Epithelial Cell Urine None seen /hpf (Few); WBC Urine 0-5 /hpf; pH Urine 7.5 (5.0-9.0)
[2022-07-23 15:53] LABS: Add Urine Microscopic? YES
[2022-07-23 16:05] LABS: Thyroid Stimulating Hormone 0.708 uIU/mL (0.465-4.680)
[2022-07-23 16:33] LABS: Free T4 Free Thyroxine 1.29 ng/mL (0.78-2.19); Vitamin D 25 Hydroxy 38.2 ng/mL
[2022-07-26 13:34] LABS: Albumin 4.2 g/dL (3.8-4.8); Alpha 1 Globulin 0.3 g/dL (0.2-0.3); Alpha 2 Globulin 0.9 g/dL (0.5-0.9); Beta 1 Globulin 0.5 g/dL (0.4-0.6); Gamma Globulin 1.2 g/dL (0.8-1.7); Protein, Total 7.5 g/dL (6.1-8.1)
[2022-07-26 14:34] LABS: Thyroid Peroxidase Antibodies 34 IU/mL (<9)
[2022-07-28 20:32] LABS: Creatinine, Random Urine 56 mg/dL (20-275); Total Protein/Creatinine Ratio 107 mg/g creat (24-184)
[2022-07-30 10:01] LABS: Gliadin AB, IgG <1.0 U/mL (<15.0); TTG IGA AB <1.0 U/mL (<15.0)
== END 2022-07-23 14:32 | disposition home or self-care (01) ==
LOC: ANHLAB 14:33
PROVIDERS: PCP Internal Medicine; Visit Provider Internal Medicine
DX: R35.0 Frequency of micturition (principal); M81.0 Age-related osteoporosis without current pathological fracture; E03.9 Hypothyroidism, unspecified
CPT/HCPCS: 36415; 81001; 82306; 82570; 83735; 83970; 84100; 84155; 84156; 84165; 84166; 84439; 84443; 86255; 86364; 86376

== ENCOUNTER 2022-07-25 13:07 | Outpatient (CLI) | payer MEDICARE, SELFPAY ==
[2022-07-25 14:20] LABS: Total Volume 24 Hour Urine 1200 ml
[2022-07-25 14:28] LABS: Creatinine 24 Hour Urine 0.5 gm/24 (0.8-1.8); Creatinine Urine 47.5 mg/dL
[2022-07-31 08:19] LABS: Total Volume 1200; Urine Calcium 1.6
== END 2022-07-25 13:08 | disposition home or self-care (01) ==
LOC: ANHLAB 13:08
PROVIDERS: PCP Internal Medicine; Visit Provider Internal Medicine
DX: M81.0 Age-related osteoporosis without current pathological fracture (principal)
CPT/HCPCS: 81050; 82340; 82570

== ENCOUNTER 2022-09-14 14:49 | Outpatient (CLI) | payer MEDICARE, SELFPAY ==
[2022-09-14 15:46] LABS: Basophils Absolute Auto 0.1 K/mm3 (0.0-0.1); Basophils Percent Auto 1.1 % (0.2-1.2); Eosinophils Absolute Auto 0.4 K/mm3 (0-0.3); Eosinophils Percent Auto 6.7 % (0-4.4); Hematocrit 36.7 % (37.0-47.0); Hemoglobin 11.8 g/dL (12.0-15.0); Immature Granulocyte Absolute 0.01 K/mm3 (0.00-0.031); Immature Granulocyte Percent A 0.2 % (0-0.5); Lymphocytes Absolute Auto 2.09 K/mm3 (0.9-3.2); Lymphocytes Percent Auto 32.5 % (18.3-44.2); Mean Corpuscular HGB Conc 32.2 g/dl (32-36); Mean Corpuscular Hemoglobin 30.1 pg (26-34); Mean Corpuscular Volume 93.6 fl (80-100); Mean Platelet Volume 10.5 fl (7.4-10.4); Monocytes Absolute Auto 0.6 K/mm3 (0.1-0.6); Monocytes Percent Auto 9.8 % (2.6-8.5); Neutrophils Absolute Auto 3.2 K/mm3 (1.3-6.7); Neutrophils Percent Auto 49.7 % (45.5-73.1); Platelet Count Result 314 k/mm3 (150-375); Red Blood Count 3.92 M/mm3 (4.2-5.4); Red Cell Distribution Width 13.2 % (11.5-14.5); White Blood Count 6.4 K/mm3 (4.5-10.0)
[2022-09-14 21:30] LABS: Anion Gap 5 mmol/L (8-16); Blood Urea Nitrogen 19 mg/dL (7-17); Calcium 9.1 mg/dL (8.4-10.2); Carbon Dioxide 32 mmol/L (22-30); Chloride 102 mmol/L (98-107); Estimated Glomerular Filt Rate > 60; Glucose 75 mg/dL (65-110); Sodium 139 mmol/L (137-145)
[2022-09-14 22:22] LABS: Iron 134 ug/dL (37-170)
[2022-09-14 22:27] LABS: Folic Acid 13.8 ng/mL (2.76->20)
[2022-09-14 22:32] LABS: Percent Iron Saturation 41 % (20-50)
== END 2022-09-14 14:50 | disposition home or self-care (01) ==
LOC: ANHLAB 14:51
PROVIDERS: PCP Internal Medicine; Visit Provider Internal Medicine Hematology & Oncology
DX: D64.9 Anemia, unspecified (principal)
CPT/HCPCS: 36415; 80048; 82607; 82728; 82746; 83540; 83550; 85025

== ENCOUNTER 2022-09-25 13:22 | Outpatient (CLI) | payer MEDICARE, SELFPAY ==
--- NOTE | ~2022-09-25 | US_ITS ---
EXAMINATION: US carotid duplex BI DATE: 09/25/2022 13:49 INDICATION: Carotid bruit TECHNIQUE: Grayscale, color Doppler, and pulsed Doppler images of the cervical carotid arteries were obtained. The degree of vessel stenosis is placed in one of the following categories: normal, <50%, 5 0-69%, >=70% but less than near-occlusion, near-occlusion, or total occlusion. Note that percent sten osis relative to normal distal artery lumen diameter is indirectly measured from velocity measurement s as described by Jesse, et al. Radiology 2003; 229:340-346. Notes: Normal: Peak systolic velocity <125 centimeters/sec and no plaque <50%. Peak systolic velocity <125 ( EDV <40; ICA/CCA PSV ratio <2.0; used these factors only a tandem lesions or low cardiac output or co ntralateral disease) 50-69 %: PSV 125-230 (EDV 40-100; ratio 2-4) >= 70% but less than near occlusion: PSV greater than 230 (EDV > 100; ratio> 4.0) Near Occlusion: PSV that is variable; markedly narrowed lumen Occlusion: Absent flow on color/spectral Doppler and no lumen on lisa scale. COMPARISON: None. FINDINGS: RIGHT: The right common carotid artery (CCA) peak systolic velocity (PSV) is 64 cm/s. The right internal car otid artery (ICA) PSV is 139 cm/s. The right ICA end-diastolic velocity (EDV) is 35 cm/s. The right I CA/CCA PSV ratio is 2.2. The external carotid artery (ECA) PSV is 80 cm/s. There is antegrade flow in the right vertebral artery. LEFT: The left CCA PSV is 80 cm/s. The left ICA PSV is 131 cm/s. The left ICA EDV is 33 cm/s. The left ICA/ CCA PSV ratio is 1.6. The ECA PSV is 156 cm/s. There is antegrade flow in the left vertebral artery. IMPRESSION: 1. 50-69% stenosis in the right internal carotid artery by sonographic criteria. 2. 50-69% stenosis in the left internal carotid artery by sonographic criteria. Reviewed, dictated and finalized at location B. IMPRESSION: 1. 50-69% stenosis in the right internal carotid artery by sonographic criteria . 2. 50-69% stenosis in the left internal carotid artery by sonographic criteria.
== END 2022-09-25 13:23 ==
PROVIDERS: PCP Internal Medicine; Visit Provider Internal Medicine Cardiovascular Disease
DX: R09.89 Other specified symptoms and signs involving the circulatory and respiratory systems (principal); I65.23 Occlusion and stenosis of bilateral carotid arteries
CPT/HCPCS: 93880

== ENCOUNTER 2022-10-02 12:24 | Outpatient (CLI) | payer MEDICARE, SELFPAY ==
--- NOTE | 2022-10-02 12:40 | ECHO_ITS ---
Patient Info Name: Saray Park Age: 76 years : 1945 Gender: Female Ht: 62 in Wt: 130 lbs BSA: 1.62 m2 HR: 66 bpm BP: 146 / 70 mmHg Technical Quality: Good Exam Date: 10/02/2022 12:48 PM Exam Location: [facility] Pulmonary Patient Status: Outpatient Admit Date: 10/02/2022 Staff Ordering Physician: Felix Campos DO Night Cleaner: Melanie Sosa RDCS Attending Provider: Felix Campos DO Referring Physician: Andres GILMORE; Exam Type: CA echo doppler color flow Study Info Indications I35.0 - Nonrheumatic aortic (valve) stenosis Complete two-dimensional, color flow and Doppler transthoracic echocardiogram is performed. Summary 1. Complete two-dimensional, color flow and Doppler transthoracic echocardiogram is performed. 2. Left ventricular chamber dimension is normal. 3. Left ventricular systolic function is normal, estimated at 60-65%. 4. There is mild concentric increased left ventricular wall thickness. 5. The left ventricular diastolic function is normal. 6. E/e' 9 is minimally elevated. 7. Left atrial chamber dimension is moderately enlarged. 8. There is mild mitral valve regurgitation. 9. There is mild tricuspid valve regurgitation. 10. No pulmonary hypertension, estimated pulmonary arterial systolic pressure is 34 mmHg. Left Ventricle E/e' 9 is minimally elevated. Left ventricular chamber dimension is normal. Left ventricular systolic function is normal, estimated at 60-65%. There is mild concentric increased left ventricular wall thickness. The left ventricular diastolic function is normal. Right Ventricle Right ventricular systolic function is normal and with normal TAPSE 2.5 cm. Right ventricular chamber dimension is normal. Left Atria Left atrial chamber dimension is moderately enlarged. Right Atria Right atrial chamber dimension is normal. Aortic Valve The aortic valve is trileaflet. There is no aortic valve stenosis. There is no aortic valve regurgitation. Pulmonic Valve There is no pulmonic regurgitation. Mitral Valve There is no mitral valve stenosis. There is mild mitral valve regurgitation. Tricuspid Valve There is mild tricuspid valve regurgitation. No pulmonary hypertension, estimated pulmonary arterial systolic pressure is 34 mmHg. Pericardium/Pleural There is no pericardial effusion. Inferior Vena Cava Normal inferior vena cava with >50% collapse upon inspiration consistent with normal right atrial pressure, 5 mmHg. Aorta The aortic root size at the sinus of Valsalva is normal. Left Ventricular Outflow Tract Name Value Normal LVOT 2D LVOT Diameter 1.9 cm LVOT Doppler LVOT Peak Velocity 113 cm/s LVOT Peak Gradient 5 mmHg LVOT Mean Gradient 3 mmHg LVOT VTI 30 cm LVOT VTI/AV VTI Ratio 0.7 LVOT Stroke Volume 88 ml LVOT CO 5.6 l/min LVOT CI 3.4 l/min/m2 Pulmonic Valve Name Value Normal
== END 2022-10-02 12:25 | disposition home or self-care (01) ==
LOC: ANHCARD 12:25
PROVIDERS: PCP Internal Medicine; Visit Provider Internal Medicine Cardiovascular Disease
DX: I35.0 Nonrheumatic aortic (valve) stenosis (principal); I36.1 Nonrheumatic tricuspid (valve) insufficiency; I34.0 Nonrheumatic mitral (valve) insufficiency
CPT/HCPCS: 93306

== ENCOUNTER 2022-10-23 12:21 | Outpatient (CLI) | payer MEDICARE, SELFPAY ==
[2022-10-23 12:35] LABS: Basophils Absolute Auto 0.1 K/mm3 (0.0-0.1); Basophils Percent Auto 0.8 % (0.2-1.2); Eosinophils Absolute Auto 0.3 K/mm3 (0-0.3); Eosinophils Percent Auto 4.2 % (0-4.4); Hematocrit 32.5 % (37.0-47.0); Hemoglobin 10.3 g/dL (12.0-15.0); Immature Granulocyte Absolute 0.02 K/mm3 (0.00-0.031); Immature Granulocyte Percent A 0.3 % (0-0.5); Lymphocytes Absolute Auto 2.09 K/mm3 (0.9-3.2); Lymphocytes Percent Auto 26.6 % (18.3-44.2); Mean Corpuscular HGB Conc 31.7 g/dl (32-36); Mean Corpuscular Hemoglobin 29.6 pg (26-34); Mean Corpuscular Volume 93.4 fl (80-100); Mean Platelet Volume 9.4 fl (7.4-10.4); Monocytes Absolute Auto 0.7 K/mm3 (0.1-0.6); Neutrophils Absolute Auto 4.7 K/mm3 (1.3-6.7); Neutrophils Percent Auto 59.1 % (45.5-73.1); Platelet Count Result 291 k/mm3 (150-375); Red Blood Count 3.48 M/mm3 (4.2-5.4); Red Cell Distribution Width 12.8 % (11.5-14.5); White Blood Count 7.9 K/mm3 (4.5-10.0)
[2022-10-23 12:39] LABS: Blood Urea Nitrogen 27 mg/dL (8-26); Carbon Dioxide 26 mmol/L (22-30); Chloride 102 mmol/L (98-109); Estimated Glomerular Filt Rate 40; Glucose 79 mg/dL (70-105); Ionized Calcium (POC) 1.16 mmol/L (1.11-1.31); Potassium 4.1 mmol/L (3.5-4.9); Sodium 139 mmol/L (138-146)
[2022-10-23 14:26] LABS: Iron 90 ug/dL (37-170)
[2022-10-23 14:40] LABS: Percent Iron Saturation 29 % (20-50)
[2022-10-23 15:32] LABS: Folic Acid 9.9 ng/mL (2.76->20)
== END 2022-10-23 12:22 | disposition home or self-care (01) ==
LOC: ANHLAB 12:22
PROVIDERS: PCP Internal Medicine; Visit Provider Internal Medicine Hematology & Oncology
DX: D64.9 Anemia, unspecified (principal)
CPT/HCPCS: 36415; 80047; 82607; 82728; 82746; 83540; 83550; 85025

== ENCOUNTER 2023-09-22 08:14 | Outpatient (CLI) | payer MEDICARE, SELFPAY ==
[2023-09-22 09:09] LABS: Cholesterol 167 mg/dL (0-200); HDL Direct 85 mg/dL; Lipase 40 U/L (23-300); Triglycerides 45 mg/dL (<150)
[2023-09-22 09:12] LABS: Alanine Aminotransferase 26 U/L (6-35); Albumin Level 4.6 g/dL (3.5-5.1); Alkaline Phosphatase 106 U/L (38-126); Anion Gap 6 mmol/L (4-12); Aspartate Amino Transferase 29 U/L (14-36); Bilirubin,Total 0.4 mg/dL (0.2-1.3); Blood Urea Nitrogen 23 mg/dL (7-17); Calcium 9.3 mg/dL (8.4-10.2); Carbon Dioxide 29 mmol/L (22-30); Chloride 101 mmol/L (98-107); Estimated Glomerular Filt Rate > 60; Glucose 135 mg/dL (65-110); Potassium 4.6 mmol/L (3.4-5.0); Sodium 136 mmol/L (137-145)
[2023-09-22 09:20] LABS: LDL Cholesterol Direct 72 mg/dL
[2023-09-22 09:23] LABS: Vitamin D 25 Hydroxy 35.7 ng/mL
[2023-09-22 09:33] LABS: Thyroid Stimulating Hormone 0.173 uIU/mL (0.465-4.680)
== END 2023-09-22 08:15 | disposition home or self-care (01) ==
PROVIDERS: PCP Internal Medicine; Referring Provider Internal Medicine Cardiovascular Disease; Visit Provider Internal Medicine
DX: I65.29 Occlusion and stenosis of unspecified carotid artery (principal); E78.5 Hyperlipidemia, unspecified; E55.9 Vitamin D deficiency, unspecified; E03.9 Hypothyroidism, unspecified; K86.1 Other chronic pancreatitis
CPT/HCPCS: 36415; 80053; 80061; 82306; 83690; 84443

== ENCOUNTER 2023-10-07 15:14 | Outpatient (CLI) | payer MEDICARE, SELFPAY ==
--- NOTE | ~2023-10-07 | US_ITS ---
EXAMINATION: US carotid duplex BI DATE: 10/07/2023 16:14 INDICATION: Other specified symptoms and signs involving the circulatory system. TECHNIQUE: Grayscale, color Doppler, and pulsed Doppler images of the cervical carotid arteries were obtained. The degree of vessel stenosis is placed in one of the following categories: normal, <50%, 5 0-69%, >=70% but less than near-occlusion, near-occlusion, or total occlusion. Note that percent sten osis relative to normal distal artery lumen diameter is indirectly measured from velocity measurement s as described by Jesse, et al. Radiology 2003; 229:340-346. COMPARISON: Ultrasound 09/25/2022 FINDINGS: RIGHT: The right common carotid artery (CCA) peak systolic velocity (PSV) is 58 cm/s. The right internal car otid artery (ICA) PSV is 137 cm/s. The right ICA end-diastolic velocity (EDV) is 41 cm/s. The right I CA/CCA PSV ratio is 2.4. Grayscale and color Doppler images yield an estimate of >=50% diameter reduc tion from plaque in the ICA. There is antegrade flow in the right vertebral artery. LEFT: The left CCA PSV is 81 cm/s. The left ICA PSV is 123 cm/s. The left ICA EDV is 28 cm/s. The left ICA/ CCA PSV ratio is 1.5. Grayscale and color Doppler images yield an estimate of <50% diameter reduction from plaque in the ICA. There is antegrade flow in the left vertebral artery. IMPRESSION: 1. 50-69% stenosis in the right internal carotid artery. 2. <50% stenosis in the left internal carotid artery. Reviewed, dictated and finalized at location A.
== END 2023-10-07 15:15 | disposition home or self-care (01) ==
LOC: ANHIMG 15:17
PROVIDERS: PCP Internal Medicine; Visit Provider Internal Medicine Cardiovascular Disease
DX: R09.89 Other specified symptoms and signs involving the circulatory and respiratory systems (principal); I65.23 Occlusion and stenosis of bilateral carotid arteries
CPT/HCPCS: 93880

== ENCOUNTER 2024-09-12 12:20 | Outpatient (CLI) | payer MEDICARE, SELFPAY ==
--- NOTE | ~2024-09-12 | XR_ITS ---
Left Hand Technique: PA, oblique, and lateral views were obtained. Clinical History: Injury Findings: No acute fracture or dislocation is seen. Osseous alignment is anatomic. Joint there mild d egenerative changes of the third and fourth DIP joints. There is mild degenerative changes third MCP joint. There is mild degenerative change of the first CMC joint. Soft tissues are unremarkable. Impression: Polyarticular mild osteoarthritic change, as detailed above. Reviewed, dictated and finalized at location M. Impression: Polyarticular mild osteoarthritic change, as detailed above.
--- OUTSIDE RECORDS SUMMARY | 2024-09-12 12:26 | XMS_ITS | Referral Summary ---
Author Organization [facility] [place] [address] Address [address] [place] [address] Care Team Providers Care Senior Manufacturing Supervisor Name Role Phone Milo Oden MD Primary Care Provider [phone] Sánchez Julian DO Unavailable Lev Diaz MD Unavailable [phone] Allergies Active Allergy Reactions Criticality Noted Date Comments Morphine Vomiting Low Nalbuphine Vomiting Low Sulfa (Sulfonamide Antibiotics) Nausea only,Urticaria Medium 03/29/2009 Iron Sucrose Nausea & Vomiting,Hypotension High 08/01/2021 Medications ondansetron (ZOFRAN) 4 mg tablet Take 1 tablet (4 mg total) by mouth every 6 (six) hours as needed 4 Active methadone (DOLOPHINE) 5 mg tabletIndicatio ns:1 or 2 tablets every 6 hours as needed Take 1-2 tablets (5-10 mg total) by mouth every 8 (eight) hours as needed 0 9 Active L gasseri/B bifidum/B longum (HUGGINS [facility] ORAL) Take 1 tablet by mouth daily 4 Active Creon 36,000-114,000- 180,000 unit capsule Take 1 capsule by mouth 3 (three) times a day before meals 2 Active omeprazole (PriLOSEC) 40 mg capsule Take 1 capsule (40 mg total) by mouth daily Active levothyroxine (SYNTHROID) 125 mcg tablet Take 1 tablet (125 mcg total) by mouth cone runner before breakfast Active lisinopriL (PRINIVIL,ZESTR [place]) 20 mg tablet Take 1 tablet (20 mg total) by mouth nightly Active atorvastatin (LIPITOR) 10 mg tablet Take 1 tablet (10 mg total) by mouth daily Active oxyCODONE-aceta minophen (PERCOCET) 5-325 mg per tabletIndicatio ns:Pain Take 1-2 tablets every 4 hours as needed for pain 40 tablet 3 Active aspirin 81 mg enteric coated tabletIndicatio ns:Deep Vein Thrombosis Prevention Take 1 tablet (81 mg total) by mouth 2 (two) times a day 60 tablet 3 Active Active Problems Problem Noted Date Diagnosed Date Primary osteoarthritis of right shoulder 023 Overview (08/12/2022): Added automatically from request for surgery [id number] Angio-edema 08/02/2021 Enterocolitis 08/02/2021 Primary hypertension 08/02/2021 Medication reaction, initial encounter 2 Iron deficiency anemia due to chronic blood loss 07/30/2021 Gastric ulcer without hemorrhage or perforation 07/22/2021 Overview (08/27/2021): Added automatically from request for surgery [id number] Anemia 07/03/2021 Hypothyroidism 09/03/2020 Lumbosacral spondylosis without myelopathy 10/06 Other chronic pain 10/06/2018 Chronic right SI joint pain 10/06/2018 Low back pain 10/06/2018 Resolved Problems Problem Noted Date Diagnosed Date Resolved Date Gastric ulcer without hemorr enrique or perforation 07/22/2021 08/02/2021 Overview (07/22/2021): Added automatically from request for surgery [id number] Low back pain, non-specific 09/27/2018 08/02/2021 Social History Tobacco Use Types Packs/Day Years Used Date Smoking Tobacco: Never Smokeless Tobacco: Never Tobacco Cessation:Counseling Given: Not Answered Alcohol Use Standard Drinks/Week Comments Never 0 (1 standard drink = 0.6 oz pur e alcohol) AUDIT-C Answer Date Recorded Q1: How often do you have a drink containing alcohol? Never 09/23/2022 Q2: How many drinks containi ng alcohol do you have on a typical day when you are drinking? Patient does not drink Q3: How often do you have si x or more drinks on one occasion? Never 09/23/2022 Personal Safety Answer Date Recorded Have you ever been in or are you currently in a harmful physical or emotional relationship or is someone making you feel afraid or unsafe? 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 Not on file Not on file Not on sharyn e Last Filed Vital Signs Vital Sign Reading Time Taken Comments Blood Pressure 134/52 11/11/2022 4:10 PM CDT Pulse 73 11/11/2022 4:10 PM CDT Temperature 36.8 C (98.3 F) 11/11/2022 4:10 PM CDT Respiratory Rate 18 11/11/2022 12:43 PM CDT Oxygen Saturation 98% 11/11/2022 4:10 PM CDT Inhaled Oxygen Concentration - - Weight 64.1 kg (141 lb 5 oz) 11/10/2022 2:27 PM CDT Height 157.5 cm (5' 2 ) 11/10/2022 2:27 PM CDT Body Mass Index 25.85 11/10/2022 2:27 PM CDT Plan of Treatment Not on file Goals Goal Patient Goal Type Associated Problems Recent Progress Patient-Stated? Author CCM Chronic Pain Care Plan Chronic Care Management Pooja Peraza, RN Note: Problem: Chronic Pain Goals: 1. Minimize further functional decline 2. Maximize quality of life 3. Control pain Strategies: - Activity/exercise program recommendation - Conservative stepwise pain medicine strategy with multi-disciplinary approach - Recommend healthy lifestyle strategies and compensatory methods as needed Medical Devices Implanted Type Area Machine Folder Device Identifier Shelf Expiration Date Model / Serial / Lot Pin Pin Right: Back Description:And right leg [employer] Baseplate Glenoid Rsp 30mm Titanium 508-32-204 - [id number] Implanted:Qty : 1 on 11/10/2022 by Lev Diaz MD at [facility] Right: Shoulder [employer] [id number] 08/11/2028 508-32-20 4 / [id number] [employer] Screw Glenoid Locking Rsp 5.0x14mm Titanium 506-03-114 - [id number] Implanted:Qty : 1 on 11/10/2022 by Lev Diaz MD at [facility] Right: Shoulder [employer] [id number] 09/03/2028 4 / [id number] [employer] Screw Glenoid Locking Rsp 5.0x26mm Titanium 506-03-126 - [id number] Implanted:Qty : 1 on 11/10/2022 by Lev Diaz MD at [facility] Right: Shoulder [employer] [id number] 08/31/2028 6 / / [id number] [employer] Screw Glenoid Locking Rsp 5.0x26mm Titanium 506-03-126 - [id number] Implanted:Qty : 1 on 11/10/2022 by Lev Diaz MD at [facility] Right: Shoulder [employer] [id number] 08/31/2028 6 / / [id number] [employer] Screw Glenoid Locking Rsp 5.0x14mm Titanium 506-03-114 - [id number] Implanted:Qty : 1 on 11/10/2022 by Lev Diaz MD at [facility] Right: Shoulder [employer] [id number] 09/03/2028 4 / [id number] [employer] Head Humeral Shoulder Reverse Offset Rsp -4x32mm [place] Chromium 508-32-103 - [id number] Implanted:Qty : 1 on 11/10/2022 by Lev Diaz MD at [facility] Right: Shoulder [employer] [id number] 09/01/2028 508-32-10 3 / / [id number] [employer] Insert Humeral Reverse Small Neutral Altivate Reverse 32mm 509-02-032 - [id number] Implanted:Qty : 1 on 11/10/2022 by Lev Diaz MD at [facility] Right: Shoulder [employer] [id number] 05/26/2027 509-02-03 2 / [id number] [employer] Stem Humeral Shoulder Reverse Altivate Reverse 0c530bj Titanium 533-08-108 - [id number] Implanted:Qty : 1 on 11/10/2022 by Lev Diaz MD at [facility] Right: Shoulder [employer] [id number] 09/03/2028 5307-08-09 [id number] [facility] HMO REF [facility] MEDICARE ADVANTAGE Advance Directives For more information, please contact: [phone] * Full Code (Latest Code Status on File) Date Activated Date Inactivated Comments 11/10/2022 7:49 PM 11/11/2022 10:02 PM * Full Code Date Activated Date Inactivated Comments 09/17/2021 9:12 AM 09/17/2021 3:48 PM * Full Code Date Activated Date Inactivated Comments 08/01/2021 11:00 PM 08/02/2021 2:31 PM * Full Code Date Activated Date Inactivated Comments 07/21/2021 10:58 AM 07/21/2021 5:34 PM Healthcare Agents on File Name Relationship Healthcare Agent Relationshi p Communication Sán[place] Spouse Health Care Agent Care Teams Senior Manufacturing Supervisor Relationship Specialty Start Date End Date Milo Oden MD [address] [facility] [address] [place] [address] PCP - General Internal Medicine 12/02/16 Sánchez Julian DO [address] [facility] MEDICAL ON[facility]Y, [facility] [address] [place] [address] Medical Oncologist/Military Professional Hematology and Oncology 07/02/21 Lev Diaz MD [address] [facility] [address] [place] [address] Consulting Physician Orthopedic Surgery 11/11/22
--- OUTSIDE RECORDS SUMMARY | 2024-09-12 12:26 | XMS_ITS | Clinical Summary ---
Author Organization [facility] Address [address] [place] [address] Phone Care Team Providers Care Technical Aide Name Role Phone DaphneyMilo sepulveda Prema WHALEN Primary Care Provider [phone] Allergies Active Allergy Reactions Criticality Noted Date Comments Morphine Vomiting 11/10/2018 Nalbuphine Vomiting 11/10/2018 Sulfa Antibiotics Hives 11/10/2018 Medications alendronate (FOSAMAX) 70 MG Tablet Take 70 mg by mouth every 7 days. Active Cholecalciferol (VITAMIN D PO) Take by mouth. Active estradiol (ESTRACE) 0.5 MG Tablet Take 0.5 mg by mouth daily. Hazardous: Medication requires special safe handling and disposal. Active levothyroxine (SYNTHROID) 137 MCG Tablet Take 137 mcg by mouth daily. Active IRON PO Take by mouth. Activ e Ascorbic Acid (VITAMIN C) 250 MG Tablet Take 250 mg by mouth daily. Active Probiotic Product (PROBIOTIC-10 PO) Take by mouth. Activ e Multiple Vitamins-Minera ls (CENTRUM PO) Take by mouth. Active IBUPROFEN PO Take by mouth. Ac tive METHADONE HCL PO Take by mouth. Activ e ALPRAZolam (XANAX) 0.25 MG Tablet Take 1 tab 60 minutes prior to scheduled MRI 1 Tab 9 Active Additional Information Patient not taking.Reported on 02/16/2019 omeprazole (PriLOSEC) 40 MG CAPSULE DELAYED RELEASE Take 1 Cap by mouth daily. 90 Cap 3 0 Active ondansetron (ZOFRAN) 4 MG Tablet TAKE 1 TABLET BY MOUTH FOUR TIMES DAILY 120 Tablet 1 Active Active Problems No known active problems Family History Medical History Relation Name Comments Heart Disease Brother Breast Cancer Daughter Cancer Father Pancreatic Leukemia/Lymphoma Father Colon Cancer Maternal Grandfather Heart Disease Mother Cancer Paternal Aunt Pancreatic Heart Disease Sister Relation Name Status Comments Brother Daughter Father Maternal Grandfather Mother Paternal Aunt Sister Alive Social History Tobacco Use Types Packs/Day Years Used Date Smoking Tobacco: Never Smokeless Tobacco: Never Alcohol Use Standard Drinks/Week Comments Never 0 (1 standard drink = 0.6 oz pur e alcohol) AUDIT-C Answer Date Recorded Frequency of Alcohol Consumption Never 11/10/2018 Average Number of Drinks Not on file 019 Frequency of Binge Drinking Not on file 10/31 Comments Unknown Sex and Gender Information Value Date Recorded Sex Assigned at Not on file Legal Sex Female 11:03 PM CDT Gender Identity Not on file Sexual Orientation Not on file Last Filed Vital Signs Vital Sign Reading Time Taken Comments Blood Pressure 124/60 02/16/2019 2:59 PM CDT Pulse 68 02/16/2019 2:59 PM CDT Temperature 36.9 C (98.4 F) 11/10/2018 11:03 AM CDT Respiratory Rate - - Oxygen Saturation 92% 02/16/2019 2:59 PM CDT Inhaled Oxygen Concentration - - Weight 59 kg (130 lb) 02/16/2019 2:59 PM CDT Height 157.5 cm (5' 2 ) 02/16/2019 2:59 PM CDT Body Mass Index 23.78 02/16/2019 2:59 PM CDT Plan of Treatment Health Maintenance Due Date Last Done Comments Hepatitis C Virus (HCV) Screening 1945 Pneumococcal Immunization (5 0+ years) (1 of 1 - PCV) 1996 Zoster Immunization (1 of 2) 1996 Respiratory Syncytial Virus (RSV) Immunization (Adult) (1 - 1-dose 75+ series) 2021 Influenza Immunization (#1) 2024 SARS-COV-2 Immunization ( - 2023-25 season) 2024 Colonoscopy High Risk Discontinued 01/11/2014 Colonoscopy Discontinued 01/11/2014 Colorectal Cancer Screening Discontinued DTaP/Tdap/Td Immunization Discontinued 10/23/2019 TdaP Immunization Completed 10/23/2019 Cologuard Discontinued Hepatitis B Immunization Aged Out No longer eligible based on patient's age to complete this topic Immunochemical Fecal Occult Blood Discontinued Meningococcal Immunization (ACWY) Aged Out No longer eligible based on patient's age to complete this topic Rotavirus Immunization Aged Out No lo nger eligible based on patient's age to complete this topic Procedures Procedure Name Priority Date/Time Associated Diagnosis Comments COLONOSCOPY Routine 01/11/2014 from Last 3 Months or Most Recently Relevant to Health Maintenance Results * COLONOSCOPY (01/11/2014) Ghanshyam Wade DO PROCEDURE/MINOR SURGICAL ORDERA BLES Final Result from Last 3 Months or Most Recently Relevant to Health Maintenance Insurance MEDICARE C [employer] on file Care Teams Technical Aide Relationship Specialty Start Date End Date Milo Oden DO [address] [place] [address] PCP - General Internal Medicine 11/10/18
--- OUTSIDE RECORDS SUMMARY | 2024-09-12 12:26 | XMS_ITS | Clinical Summary ---
Author Organization [facility] [place] [address] Address [address] [place] [address] Care Team Providers Care Specimen Technician Name Role Phone Milo Oden MD Primary Care Provider [phone] Sánchez Julian DO Unavailable [phone] Lev Diaz MD Unavailable [phone] Allergies Active Allergy Reactions Criticality Noted Date [...] 1 tablet (125 mcg total) by mouth triage registered nurse before breakfast Active lisinopriL (PRINIVIL,ZESTR [place]) 20 [...] (08/12/2022): Added automatically from request for surgery [id number] Angio-edema 08/02/2021 Enterocolitis 08/02/2021 Primary hypertension 08/02/2021 Medication reaction, initial encounter 2 Iron deficiency anemia due to chronic blood loss 07/30/2021 Gastric ulcer without hemorrhage or perforation 07/22/2021 Overview (08/27/2021): Added automatically from request for surgery [id number] Anemia 07/03/2021 Hypothyroidism 09/03/2020 Lumbosacral spondylosis without myelopathy 10/06 Other chronic pain 10/06/2018 Chronic right SI joint pain 10/06/2018 Low back pain 10/06/2018 Resolved Problems Problem Noted Date Diagnosed Date Resolved Date Gastric ulcer without hemorr enrique or perforation 07/22/2021 08/02/2021 Overview (07/22/2021): Added automatically from request for surgery [id number] Low back pain, non-specific 09/27/2018 08/02/2021 Surgical History Surgery Date Site/Laterality Comments HYSTERECTOMY ROTATOR CUFF REPAIR Bilateral CATARACT EXTRACTION, BILATERAL ANTERIOR CERVICAL DISCECTOMY W/ FUSION C5-6 ANTERIOR / POSTERIOR COMBINE D FUSION LUMBAR SPINE L4-S1 CHOLECYSTECTOMY APPENDECTOMY ERCP CARPAL TUNNEL RELEASE Bilateral VENOUS ABLATION SVG ablation ANTERIOR CERVICAL DISCECTOMY W/ FUSION 05/03/2008 - 05/02/2009 C3-7 Medical History Medical History Date Comments Osteoporosis Hypothyroidism Hypertension History of peptic ulcer disease Pancreatitis, chronic (HCC) Osteoarthritis GERD (gastroesophageal reflux disease) Chronic iron deficiency anemia Family History Medical History Relation Name Comments Heart disease Father Leukemia Father Pancreatitis Father Heart disease Mother No Known Problems Paternal Grandmother Relation Name Status Comments Father Alive Mother Paternal Grandmother Social History Tobacco Use Types Packs/Day Years [...] on file Legal Sex Female 5:05 AM RF MICROWAVE ENGINEER Gender Identity Not on file Sexual Orientation Not on file 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 Not on file Not on sharyn e Obstetrics History Last Filed Vital Signs Vital Sign Reading [...] 11/10/2022 2:27 PM CDT Plan of Treatment Health Maintenance Due Date Last Done Comments Depression Screening 1945 Hepatitis C Screening 1945 Osteoporosis Screening-Bone Density Scan 1945 DTaP/Tdap/Td Vaccine (1 - Tdap) 1957 Hepatitis B Screening 1964 Zoster Vaccine (1 of 2) 1996 Well Visit 65+ 11/01/2011 Pneumococcal vaccine 65+ (2 of 2 - PCV) 12/01/2022 0 12/01/2021 Fall Risk Assessment 11/11/2023 11/10/2022 Influenza Vaccine (#1) 2024 Goals Goal Patient Goal Type Associated Problems [...] as needed Medical Devices Implanted Type Area [employer] Device Identifier Shelf Expiration Date Model / Serial / Lot Pin Pin Right: Back Description:And right leg [employer] Baseplate Glenoid Rsp 30mm Titanium 508-32-204 - [id number] Implanted:Qty : 1 on 11/10/2022 by Lev Diaz MD at [facility] Right: Shoulder [employer] [id number] 08/11/2028 508-32-20 4 / [id number] [employer] Screw Glenoid Locking Rsp 5.0x14mm Titanium 506-03-114 - [id number] Implanted:Qty : 1 on 11/10/2022 by Lev Diaz MD at [facility] Right: Shoulder [employer] [id number] 09/03/2028 506--11 4 [id number] [employer] Screw Glenoid Locking Rsp 5.0x26mm Titanium 506-03-126 - [id number] Implanted:Qty : 1 on 11/10/2022 by Lev Diaz MD at [facility] Right: Shoulder [employer] [id number] 08/31/2028 6 / / [id number] [employer] Screw Glenoid Locking Rsp 5.0x26mm Titanium 506-03-126 - [id number] Implanted:Qty : 1 on 11/10/2022 by Lev Diaz MD at [facility] Right: Shoulder [employer] [id number] 08/31/2028 506 6 / / [id number] [employer] Screw Glenoid Locking Rsp 5.0x14mm Titanium 506-03-114 - [id number] Implanted:Qty : 1 on 11/10/2022 by Lev Diaz MD at [facility] Right: Shoulder [employer] [id number] 09/03/2028 4 / / [id number] [employer] Head Humeral Shoulder Reverse Offset Rsp -4x32mm [place] Chromium 508-32-103 - [id number] Implanted:Qty : 1 on 11/10/2022 by Lev Diaz MD at [facility] Right: Shoulder [employer] [id number] 09/01/2028 508-32-10 3 / / [id number] [employer] Insert Humeral Reverse Small Neutral Altivate Reverse 32mm 509-02-032 - [id number] Implanted:Qty : 1 on 11/10/2022 by Lev Diaz MD at [facility] Right: Shoulder [employer] [id number] 05/26/2027 509-02-03 2 / / [id number] [employer] Stem Humeral Shoulder Reverse Altivate Reverse 5c649ao Titanium 533-08-108 - [id number] Implanted:Qty : 1 on 11/10/2022 by Lev Diaz MD at [facility] Right: Shoulder [employer] [id number] 09/03/2028 533-08-10 8 / / [id number] Insurance [facility] HMO REF [facility] HMO REF [facility] MEDICARE ADVANTAGE Advance Directives For more information, please contact: [phone] * Full Code (Latest Code Status on [...] Agents on File Name Relationship Healthcare Agent [facility] p Communication Sánchez Xavier Spouse Health Care Agent Care Teams Specimen Technician Relationship Specialty Start Date End Date Milo Oden MD [address] [facility] [address] [place], [place] [id number] PCP - General Internal Medicine 12/02/16 Sánchez Julian DO [address] [facility], [facility] [address] [place] [address] Medical Oncologist/Marketing Database Analyst Hematology and Oncology 07/02/21 Lev Diaz MD [address] [facility] [address] [place] [address] Consulting Physician Orthopedic Surgery 11/11/22
--- OUTSIDE RECORDS SUMMARY | 2024-09-12 12:26 | XMS_ITS ---
Author Organization [facility] [place] Address [address] [place] [address] Care Team Providers Care Stitcher Around Name Role Phone Nilesh Wheeler [phone] ALLERGIES Allergen (clinical drug ingredient) Drug/Non Drug Allergy documented on EMR Reaction Allergy Type Onset Date Status morphine Morphine Sulfate rash Drug Allergy Active Nubain vomiting Drug Allergy Active Sulfacet-R vomiting Drug Allergy Active iron Iron anaphylaxis Drug Allergy Activ e REASON FOR VISIT *med f/u, Low Back MEDICATIONS Medication SIG (Take, Route, Frequency, Duration) Notes Start Date End Date Status Methadone HCl 5 MG 1-2 tablet Orally one every 6 hrs max 5 a day for 30 days 07/04/2024 Active Methadone HCl 5 MG 1-2 tablet Orally Q6 hrs max 5/day for 30 days 08/03/2024 08/03/2024 Active Alendronate Sodium 70 MG 1 tablet 30 minutes before the first food, beverage or medicine of the day with plain water Orally Once a day Active Levothyroxine Sodium 88 MCG 1 tablet on an empty stomach in the morning Orally Once a day Active Ondansetron HCl 4 MG as directed Orally PRN Active Triamcinolone Acetonide 0.1 % as directed Externally Twice a day Not-Taking Vitamin D Active tiZANidine HCl 2 MG 1 tablet as needed Orally Three times a day for 30 days 12/15/2022 Not-Taking Omeprazole 20 MG 1 capsule Orally Once a day Active Losartan Potassium 50 MG 1 tablet Orally Once a day Active Estradiol 1 MG 1 tablet Orally Once a day Not-Taking PROBLEMS Problem Type ICD Code Onset Dates Problem Status W/U Status Risk SNOMED Code Notes Problem Lumbar foraminal stenosis (M48.061) Active confirmed VITAL SIGNS Temperature 97.9 degrees Fahrenheit 03/04/20 25 Heart Rate 80 /min 07/04/2024 Blood pressure systolic 144 mm Hg 07/05/19 25 Blood pressure diastolic 71 mm Hg 025 Weight 120 lbs 07/04/2024 BMI 21.95 kg/m2 07/04/2024 Height 62 in 07/04/2024 Respiratory Rate 18 /min 07/04/2024 Encounters Encounter Location Date Provider Diagnosis [facility] [address] [place] [address] 07/04/2024 Nilesh Wheeler Lumbar post-laminect kaleb syndrome M96.1 ; Spondylosis without myelopathy or radiculopathy, 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 At this point we will refill the patient's medication as prescribed. 2. We will have the patient follow-up on an as needed basis when the medication is due for refill or as directed. 3. The patient was advised to maintain normal activities. The patient was advised against bed rest for greater than four days. 4. The patient's current list of medications as recorded in the chart was discussed and I attest to their accuracy. 5. I discussed with the patient the health benefits to avoiding tobacco use in all of its forms. 6. I discussed the patient's BMI and the benefits of having this in the normal range. Problem #1 Lumbar post-laminectomy syndrome This problem is chronic and is expected to last at least 1 year. The problem is stable and the patient is able to meet their goals of being able to perform activities of daily living including adequate ambulation as well as the ability to feed themselves. The patient can dress themselves and perform personal hygiene without difficulty. The patient is also able to perform toileting abilities without difficulty and has no incontinence. The goals for treatment for this patient are to continue to have this problem be stable. The goals are to continue to have the patient's activities of daily living be satisfied. The goals for this have been met as this problem is stable. The patient continues to use the narcotic medications for pain. The risks of opioid therapy include but are not limited to sedation, constipation, hormone dysfunction, respiratory depression, and . The patient is currently taking Methadone. The goals of providing this medication are to continue to provide pain relief and to have the ability of the patient to remain independent. The goals include being able to continue to provide the basic activities of daily living for the patient. These include independent ambulating, as well as the ability to feed and dress themselves without help. We also would like for them to be able to provide independent personal hygiene and be able to get to and from the toilet and use it appropriately and clean themselves without difficulty. The goals for this patient are currently being met. PLAN OF TREATMENT Medication Medication Name Sig Start Date Stop Date Notes Methadone HCl 5 MG 1-2 tablet Orally on e every 6 hrs max 5 a day for 30 days 07/04/2024 Methadone HCl 5 MG 1-2 tablet Orally Q6 hrs max 5/day for 30 days 08/03/2024 08/03/2024 Treatment Notes Assessment Notes Other Plan: 1. At this point we will refill the patient's medication as prescribed. 2. We will have the patient follow-up on an as needed basis when the medication is due for refill or as directed. 3. The patient was advised to maintain normal activities. The patient was advised against bed rest for greater than four days. 4. The patient's current list of medications as recorded in the chart was discussed and I attest to their accuracy. 5. I discussed with the patient the health benefits to avoiding tobacco use in all of its forms. 6. I discussed the patient's BMI and the benefits of having this in the normal range. Problem #1 Lumbar post-laminectomy syndrome This problem is chronic and is expected to last at least 1 year. The problem is stable and the patient is able to meet their goals of being able to perform activities of daily living including adequate ambulation as well as the ability to feed themselves. The patient can dress themselves and perform personal hygiene without difficulty. The patient is also able to perform toileting abilities without difficulty and has no incontinence. The goals for treatment for this patient are to continue to have this problem be stable. The goals are to continue to have the patient's activities of daily living be satisfied. The goals for this have been met as this problem is stable. The patient continues to use the narcotic medications for pain. The risks of opioid therapy include but are not limited to sedation, constipation, hormone dysfunction, respiratory depression, and . The patient is currently taking Methadone. The goals of providing this medication are to continue to provide pain relief and to have the ability of the patient to remain independent. The goals include being able to continue to provide the basic activities of daily living for the patient. These include independent ambulating, as well as the ability to feed and dress themselves without help. We also would like for them to be able to provide independent personal hygiene and be able to get to and from the toilet and use it appropriately and clean themselves without difficulty. The goals for this patient are currently being met. Next Appt Details Provider Name:Nilesh Jansen idt, 10/30/2024 10:30:00 AM, [address] [place] [address], [id number], Progress Notes * Saray BHAGAT DDOB:0 1945 (78 yo F)Acc No.[id number]:07/04/2024 Progress Notes Patient: Saray BHAGAT Provider: Nilesh Wheeler MD :1945 Age:78 Y Sex:Female Date:07/04/2024 Address:[address] Subjective: * Chief Complaints: * *med f/uLow Back * HPI: Follow-up Questionnaire: Pain Evaluation This patient encounter was conducted at the [facility]. The patient completed a questionnaire on the progress that has been made since the last office visit. This form was reviewed and the responses are included in this progress note.. Location of pain: low back. Onset of pain: days ago. Average Pain Since Last Visit on Scale of 0 to 10: 10- worst pain. Number describing interference w/enjoyment of life: 10- completely interfered. Relief from Injections/Medications: d - I am sort of better, but not much.. Improvement in functional ability: d - I feel I can do more but the pain is still very much limiting what I can or cannot do.. Level of Pain on 1-10 Scale w/ 10 being most severe- TODAY 10. Level of Pain on 1-10 Scale w/ 10 being most severe- LEAST 6. Level of Pain on 1-10 Scale w/ 10 being most severe- WORST 10. Pain Level on 1-10 Scale w/ 10 being most severe- OVERALL 6. Words that best describe the pain: shooting, throbbing, sharp, electric shock. Duration of pain: constant. Aggravating/Associated factors of pain: exercise, walking, standing, sitting, taking stairs, moving from sitting to standing. The Pain is Associated with: numbness. Relieving factors of pain: heat, ice. Patient comes on for a medication refill. Patient is having no difficulties with the medication. Patient reports relief at the 60% level. * ROS: Pain Management ROS: Patient Denies: GENERAL: weight or appetite changes, fever, chills, disturbed sleeping habits. Patient Denies: EYE: eye infections, blurred vision, double vision, blindness. Patient Denies: ENT: hearing loss, inflamed nose, hoarseness, sore throat, bloody nose, sinusitis, dizziness. Patient Denies: CARDIAC: chest pains, heart murmur, skipped beats. Patient Denies: GENITOURINARY bladder incontinence, difficulty urinating. Patient Denies: RESPIRATORY cough, coughing up blood, wheezing, shortness of breath, difficulty breathing on exertion. Patient Denies: GI constipation, diarrhea, blood in stools, nausea/vomiting. Patient Denies: NEUROLOGIC headaches, dizziness, falling, seizures, numbness, tremor. Patient Denies: ENDOCRINE hot and cold flashes. Patient Denies: HEMATOLOGICAL easy bruisability, difficulty in clotting the blood. Patient Denies: JOINTS joint or muscle limitation and pain other than the present illness. Patient Denies: PSYCHIATRIC: depression, mood swings, anxiety. Patient Denies: SKIN lacerations, abrasions, postules, nodules, tumors, breast changes. * Medical History: * Surgical History: hysterectomy cholecystectomy rotator cuff tear repair Back tonsillectomy Cervical disc trigger finger right shoulder replacement 11/10/22back surgery 01/05/2024 * Hospitalization/Major Diagno stic Procedure: icu due to iron infusion issues 08/2021 * Family History: Father: , leukemia, diagnosed with Other malignant neoplasm of unspecified site. Mother: , diagnosed with Unspecified essential hypertension, Unspecified heart disease. * Social History: Education: How far did you get in your education?: high school. * Medications: TakingVitamin D Losartan Potassium 50 MG Tablet 1 tablet Orally Once a day Omeprazole 20 MG Capsule Delayed Release 1 capsule Orally Once a day Levothyroxine Sodium 88 MCG Tablet 1 tablet on an empty stomach in the morning Orally Once a day Alendronate Sodium 70 MG Tablet 1 tablet 30 minutes before the first food, beverage or medicine of the day with plain water Orally Once a day Ondansetron HCl 4 MG Tablet as directed Orally PRN Methadone HCl 5 MG Tablet 1-2 tablet Orally one every 6 hrs max 5 a day , Notes to Pharmacist: 04/28/2024Methadone HCl 5 MG Tablet 1-2 tablet Orally Q6 hrs max 5/day , Notes to Pharmacist: 05/28/2024Taking Vitamin D Taking Losartan Potassium 50 MG Tablet 1 tablet Orally Once a day Taking Omeprazole 20 MG Capsule Delayed Release 1 capsule Orally Once a day Taking Levothyroxine Sodium 88 MCG Tablet 1 tablet on an empty stomach in the morning Orally Once a day Taking Alendronate Sodium 70 MG Tablet 1 tablet 30 minutes before the first food, beverage or medicine of the day with plain water Orally Once a day Taking Ondansetron HCl 4 MG Tablet as directed Orally PRN Taking Methadone HCl 5 MG Tablet 1-2 tablet Orally one every 6 hrs max 5 a day , Notes to Pharmacist: 04/28/2024Taking Methadone HCl 5 MG Tablet 1-2 tablet Orally Q6 hrs max 5/day , Notes to Pharmacist: 05/28/2024Not-TakingEstradiol 1 MG Tablet 1 tablet Orally Once a day Triamcinolone Acetonide 0.1 % Cream as directed Externally Twice a day tiZANidine HCl 2 MG Tablet 1 tablet as needed Orally Three times a day Medication List reviewed and reconciled with the patientNot-Taking Estradiol 1 MG Tablet 1 tablet Orally Once a day Not-Taking Triamcinolone Acetonide 0.1 % Cream as directed Externally Twice a day Not-Taking tiZANidine HCl 2 MG Tablet 1 tablet as needed Orally Three times a day Medication List reviewed and reconciled with the patient * Allergies: Sulfacet-R: vomitingMorphine Sulfate: rashNubain: vomitingIron: anaphylaxisno[Allergies Verified] Objective: * Vitals: Temp: 97.9 F, HR: 80 /min, BP: 144/71 mm Hg, Wt: 120 lbs, BMI: 21.95 Index, Ht: 62 in, RR: 18 /min, Ht-cm: 157.48 cm, Wt-k.43 kg. * Examination: DSS: Normal for med refill: Psychiatric The patient is alert and oriented to person, place and time. The affect was normal. The patient has appropriate judgment and memory ability.. Cardiovascular Auscultation and palpation reveals regular rate and rhythm. There are no murmurs. There is no peripheral edema. There are no carotid bruits.. Respiratory The lungs are clear with no abnormal sounds to auscultation. Palpation of the chest reveals no crepitance. There is no sign of intercostal retractions or distress upon breathing.. Ears Ears appear normal without deformity. The nose is without rhinorrhea. The mouth is well hydrated and of normal color and appearance with no obvious lesions.. Eyes Pupils are equal in size, round and react to light normally. The sclera are non-icteric. The conjunctivae are non-erythematous.. Assessment: * Assessment: 1. Lumbar post-laminectomy syndrome - M96.1 (Primary) 2. Spondylosis without myelopathy or radiculopathy, cervicothoracic region - M47.813 3. Arthritis of lumbosacral spine - M47.817 4. Bilateral sacroiliitis - M46.1 5. Lumbar foraminal stenosis - M48.061 Plan: * Treatment: 2. Others Notes: Plan: 1. At this point we will refill the patient's medication as prescribed. 2. We will have the patient follow-up on an as needed basis when the medication is due for refill or as directed. 3. The patient was advised to maintain normal activities. The patient was advised against bed rest for greater than four days. 4. The patient's current list of medications as recorded in the chart was discussed and I attest to their accuracy. 5. I discussed with the patient the health benefits to avoiding tobacco use in all of its forms. 6. I discussed the patient's BMI and the benefits of having this in the normal range. Problem #1 Lumbar post-laminectomy syndrome This problem is chronic and is expected to last at least 1 year. The problem is stable and the patient is able to meet their goals of being able to perform activities of daily living including adequate ambulation as well as the ability to feed themselves. The patient can dress themselves and perform personal hygiene without difficulty. The patient is also able to perform toileting abilities without difficulty and has no incontinence. The goals for treatment for this patient are to continue to have this problem be stable. The goals are to continue to have the patient's activities of daily living be satisfied. The goals for this have been met as this problem is stable. The patient continues to use the narcotic medications for pain. The risks of opioid therapy include but are not limited to sedation, constipation, hormone dysfunction, respiratory depression, and . The patient is currently taking Methadone. The goals of providing this medication are to continue to provide pain relief and to have the ability of the patient to remain independent. The goals include being able to continue to provide the basic activities of daily living for the patient. These include independent ambulating, as well as the ability to feed and dress themselves without help. We also would like for them to be able to provide independent personal hygiene and be able to get to and from the toilet and use it appropriately and clean themselves without difficulty. The goals for this patient are currently being met. * Procedure Codes: * Preventive Medicine: PQRS: PQRS G8417: BMI above normal (overweight) and f/u plan documented., G8427: Patient is not currently taking any medications OR performance met., 1036F: Patient screened for tobacco use and identified as a non-user of tobacco.. * Images: * Sign off status: Completed true * Provider: Nilesh Wheeler MD Date: 07/04/2024 History and Physical Notes * HPI (History of Present Illness) Category Sub-Category Detail Notes Category Not es Follow-up Questionnaire Average Pain Since Last Visit on Scale of 0 to 10: 10- worst pain Patient comes on for a medication refill. Patient is having no difficulties with the medication. Patient reports relief at the 60% level. Number describing interferen ce w/enjoyment of life: 10- completely interfered Relief from Injections/Medications: d - I am sort of better, but not much. Improvement in functional ability: d - I feel I can do more but the pain is still very much limiting what I can or cannot do. Pain Evaluation This patient encount er was conducted at the [facility]. The patient completed a questionnaire on the progress that has been made since the last office visit. This form was reviewed and the responses are included in this progress note. Onset of pain: days ago Location of pain: low back Duration of pain: constant Words that best describe the pain: shoot ing, throbbing, sharp, electric shock Aggravating/Associated factors of pain: exercise, walking, standing, sitting, taking stairs, moving from sitting to standing Relieving factors of pain: heat, ice Level of Pain on 1-10 Scale w/ 10 being most severe- TODAY 10 Level of Pain on 1-10 Scale w/ 10 being most severe- LEAST 6 Level of Pain on 1-10 Scale w/ 10 being most severe- WORST 10 Pain Level on 1-10 Scale w/ 10 being most severe- OVERALL 6 The Pain is Associated with: numbness Examination Category Sub-Category Detail Notes Category Not es DSS: Normal for med refill Eyes Pupils are equal in size, ro und and react to light normally. The sclera are non-icteric. The conjunctivae are non-erythematous. Ears Ears appear normal w ithout deformity. The nose is without rhinorrhea. The mouth is well hydrated and of normal color and appearance with no obvious lesions. Respiratory The lungs are clear with no abnormal sounds to auscultation. Palpation of the chest reveals no crepitance. There is no sign of intercostal retractions or distress upon breathing. Cardiovascular Auscultation and pal pation reveals regular rate and rhythm. There are no murmurs. There is no peripheral edema. There are no carotid bruits. Psychiatric The patient is alert and oriented to person, place and time. The affect was normal. The patient has appropriate judgment and memory ability.
--- OUTSIDE RECORDS SUMMARY | 2024-09-12 12:26 | XMS_ITS | Data Portability ---
Author Organization [place] - [facility] [place] Address [address] [place] [address] [address] Care Team Providers Care Chute Puller Name Role Phone SMITHA BARON Primary Care Provider [phone] Assessment Encounter Date Assessment Date Assessment LastModified by Organization Details LastModified Time 09/03/2020 09/03/2020 healthy female exam/menopaus e pap- none further- hyst mammogram ordered and encouraged colonoscopy- seeing GI wednesday dexa ordered and encouraged alendronate and vit D refilled. Encouraged weight bearing exercise and 1500mg daily of Calcium with Vitamin D FU 1 year or prn Not available 09/03/2020 16:54:54 Plan of Treatment Reminders Order Date Submit Date Provider Last Modified By Organization Details Last Modified Time Details Appointments None recorded . Lab None recorded . Referral None recorded . Procedures None recorded . Surgeries None recorded . Imaging US, breast, unilater al - right breast pain [address] [facility], [address], [place], [address], 3 10:23:43 Medication Orders alendron ate 70 mg tablet 2020 021 [facility] #[id number], [address] [facility], [place], [place], [id number], 3 14:08:46 Vitamin D2 1,250 mcg (50,000 unit) capsule 2020 021 [facility] #[id number], [address] [facility], [place], [place], [id number], 3 14:08:58 Patient TargetsNo targets recorded. Patient InstructionsNo instructions recorded. Reason for Referral None Reported. Problems Name Problem SNOMED Code Status Onset Date Resolution Date Notes Provider Name and Address Organization Details Recorded Time Essential hypertension 02992314 Active 2020 Brooke Suarez MD [address], [place], [address], [facility] 14:47:20 Hypothyroidi sm 62733722 Active 2020 Brooke Suarez MD [address], [place], [address], [facility] 14:47:29 History of hysterectomy 246599214 Active 2020 Brooke Suarez MD [address], [place], [address], [facility] 14:47:37 Chronic back pain 015394691 Active 2020 Brooke Suarez MD [address], [place], [address], [facility] 14:56:51 Problem Notes None recorded. Procedures Surgical History Date Name Laterality Status Provider Name and Address Organization Details Recorded Time 003 procedure on back completed [facility] 09/03/2020 15:00:18 003 procedure on neck completed [facility] 09/03/2020 15:00:29 003 procedure on pancreas completed [facility] 09/03/2020 15:00:58 998 complete repair of rotator cuff completed [facility] 09/03/2020 14:48:26 996 complete repair of rotator cuff completed Cecilia Dos Santos [facility] 09/03/2020 14:48:00 982 total abdominal hysterectomy with bilateral salpingo-oophorect kaleb completed Brooke Suarez MD [address], [place], [address], [facility] 09/03/2020 14:56:20 Cholecystectomy completed Cecilia Dos Santos [facility] 09/03/2020 14:48:43 Reconstruct shoulder joint completed GAGAN Faye [address], [place], [address], [facility] 02/09/2023 14:33:51 Imaging Results None recorded. Procedure Notes None recorded. Medical Equipment None Reported. Allergies Allergen ID Allergen Name Allergen Category Reaction Reaction Severity Criticality Documentation Date Start Date Code Code System Note Provider Name and Address Organization Details Recorded Time 13445 Substance with sulfonami de structure and antibacte rial mechanism of action (substanc e) medicatio n Not available Not available Not available 09/03/2020 96486 8003 SNOMED Cecilia Dos Santos [facility] 14:40:32 31832 Nubain medicatio n Not available Not available Not available 09/03/2020 7550 RxNorm Cecilia Dos Santos [facility] 14:40:39 46516 morphine medicatio n Not available Not available Not available 09/03/2020 7052 RxNorm Cecilia Dos Santos [facility] 14:40:49 Medications Name Sig Start Date Stop Date Status Note LastModified by Organization Details LastModified Time losartan 50 mg tablet TAKE 1 TABLET BY MOUTH DAILY active Not Available Not Available No t Available levothyroxi ne 137 mcg tablet TAKE 1 TABLET BY MOUTH DAILY active Not Available Not Available No t Available doxycycline hyclate 100 mg capsule TAKE 1 CAPSULE BY MOUTH TWICE DAILY BEFORE MEALS FOR 14 DAYS 02/09 completed Not Available Not Available Not Available tizanidine 2 mg tablet TAKE 1 TABLET BY MOUTH THREE TIMES DAILY NEEDED active Not Available Not Available No t Available azithromyci n 250 mg tablet TK UTD 09/03 completed Not Available Not Available Not Available valacyclovi r 1 gram tablet TAKE 2 TABLETS BY MOUTH EVERY 12 HOURS 09/03 completed Not Available Not Available Not Available lisinopril 20 mg tablet TAKE 1 TABLET BY MOUTH DAILY 02/09 completed Not Available Not Available Not Available ondansetron HCl 4 mg tablet TAKE 1 TO 2 TABLETS BY MOUTH EVERY 6 HOURS NEEDED active Not Available Not Available No t Available alendronate 70 mg tablet TAKE 1 TABLET BY MOUTH EVERY WEEK 02/09 completed Not Available Not Available Not Available omeprazole 40 mg capsule,del ayed release TAKE ONE CAPSULE BY MOUTH DAILY active Not Available Not Available No t Available triamcinolo ne acetonide 0.1 % topical cream APPLY TOPICALLY TO THE AFFECTED AREA TWICE DAILY 09/03 completed Not Available Not Available Not Available oxycodone-a cetaminophe n 5 mg-325 mg tablet TAKE 1 TO 2 TABLETS BY MOUTH EVERY 4 TO 6 HOURS NEEDED 02/09 completed Not Available Not Available Not Available pravastatin 10 mg tablet TAKE 1 TABLET BY MOUTH DAILY active Not Available Not Available No t Available levothyroxi ne 125 mcg tablet TAKE 1 TABLET BY MOUTH DAILY 02/09 completed Not Available Not Available Not Available ergocalcife rol (vitamin D2) 1,250 mcg (50,000 unit) capsule TAKE 1 CAPSULE BY MOUTH EVERY WEEK 02/09 completed Not Available Not Available Not Available methylpredn isolone 4 mg tablets in a dose pack FOLLOW PACKAGE DIRECTION S active Not Available Not Available No t Available methadone 5 mg tablet TAKE 1-2 TABLETS BY MOUTH EVERY 6 HOURS MAX 5 PER DAY 02/09 completed Not Available Not Available Not Available amoxicillin 875 mg-potassiu m clavulanate 125 mg tablet TK 1 T PO Q 12 H 09/03 completed Not Available Not Available Not Available Vitamin C active Not Available Not Brittnee ilable Not Available vitamin E active Not Available Not Brittnee ilable Not Available iron 02/09 completed Not Available Not Available Not Available Stool Softener 02/09 completed Not Available Not Available Not Available oxycodone 10 mg tablet TAKE 1 TABLET BY MOUTH EVERY 8 HOURS NEEDED 02/09 completed Not Available Not Available Not Available cholecalcif rene (vitamin D3) 50 mcg (2,000 unit) capsule TAKE 1 CAPSULE BY MOUTH DAILY IN THE MORNING 02/09 completed Not Available Not Available Not Available Creon 24,000-76,0 00-120,000 unit capsule,del ayed release TAKE 1 CAPSULE THREE TIMES DAILY 02/09 completed Not Available Not Available Not Available Vitals Date Recorded Body height Body mass index (BMI) Body weight Systolic blood pressure Diastolic blood pressure Provider Name and Address Organization Details Last Updated DateTime 09/03/2020 157.48 cm 22.5 kg/m2 82291.86 g 148 mm[Hg] 75 mm[Hg] [facility] 14:40:13 Date Recorded Body height Body mass index (BMI) Body weight Systolic blood pressure Diastolic blood pressure Provider Name and Address Organization Details Last Updated DateTime 02/09/2023 157.48 cm 22.5 kg/m2 24910.86 g 154 mm[Hg] 70 mm[Hg] Melonie Velazquez [facility] 3 14:30:35 Social History Question Answer Notes LastModified by Hithru Details LastModified Time Tobacco Smoking Status Never Smoker Cecilia [facility] 09/03/2020 14:47:40 Are You Blind Or Do You Have Difficulty Seeing? No Information not available 02/09/2023 Are You Deaf Or Do You Have Serious Difficulty Hearing? No Information not available 02/09/2023 Sex: Unknown Functional Status Question Answer Note LastModified by Organ[employer]at [employer] Details LastModified Time Do you use any illicit or recreational drugs? No Information not available 09/03/2020 Do you or have you ever used any other forms of tobacco or nicotine? No Information not available 09/03/2020 What is your level of alcohol consumption? None Information not available 09/03/2020 Do you have difficulty walking or climbing stairs? No Information not available 02/09/2023 Are you able to walk? YESWOREST Information not available 02/09/2023 Are you able to care for yourself? Yes Information n ot available 02/09/2023 Do you have difficulty dressing or bathing? No Information not available 02/09/2023 Mental Status None recorded. Family History Relationship Description Onset Age of this Age Resolved Age Notes LastModified by Organization Details LastModified Time Mother Hypertensive disorder smcaley Not available 2020 14:57:35 Mother Heart disease smcaley Not available 2020 14:57:42 Sister Anemia smcaley Not available 14:57:49 Sister Asthma smcaley Not available 14:57:56 Sister Hypercholest erolemia smcaley Not available 2020 14:59:03 Sister Disorder of thyroid gland smcaley Not available 2020 14:59:23 Maternal Grandfather Carcinoma in situ of colon smcaley Not available 2020 14:58:18 Paternal Grandfather Carcinoma in situ of colon smcaley Not available 2020 14:58:18 Paternal Grandfather Heart disease smcaley Not available 2020 14:58:29 Brother Heart disease smcaley Not available 2020 14:58:53 Brother Hypertensive disorder smcaley Not available 2020 14:59:10 Daughter Carcinoma in situ of breast smcaley Not available 2020 14:59:37 Medical History Condition Response Allergies (Food, seasonal, environmental ) N Other Y Breast Cancer N Drug/Latex Allergies/Reactions N Blood Transfusion N Dermatologic Disorders N Lung Disease N Defects or Inherited Disease N Breast Problem N Gestational Diabetes N Hematologic disorders Y Anesthesia Complications N History of STI N Deep Vein Thrombosis N Polycystic ovary syndrome N Anxiety Disorder N Autoimmune disease N Arthritis N Infertility N Polyps N Acid Reflux (GERD) N History of abnormal pap N Cancer N Stroke N Varicosities N Neurologic/Epilepsy N Endometriosis N High Cholesterol N Headaches N Fibromyalgia N Kidney Disease N Heart Problems N Kidney or Bladder Problems N Thyroid Problems Y GI Problems Y Eating Disorder N Anemia Y Art (IVF or FET) N Psychiatric Illness N Ovarian Cancer N Diabetes N Pulmonary (TB, Asthma) N Hepatitis/Liver Disease N No Past Medical History N Eczema N Urinary Tract Infection N Abuse/Domestic Violence N Asthma N Trauma/Violence N Depression/ depression N Heart Disease N Pre-Eclampsia N Hypertension Y Osteoporosis N Thrombophilias N Gynecological History Statement/Question Response Date of Last Pap Smear Current Control Method Hysterectom y Obstetrics History GPAL:G 2 P 2 0 0 2 Type Value Full Term 2 Living 2 Total 2 Past Encounters Encounter ID Performer Location Encounter Start Date Encounter Closed Date Diagnosis/Indication Diagnosis SNOMED-CT Code Diagnosis ICD10 Code Diagnosis Note [id number] Brooke Suarez MD [place] [address] [address] 09/03/2020 14:33:25 09/03/2020 17:03:43 Gynecologic examination 76424558 Z01.419 Postmenopa usal osteopenia 963093718 M85.80 [id number] GAGAN Faye [place] [address] [address] 02/09/2023 13:51:20 02/09/2023 14:56:20 Pain of breast 65585324 N64.4 no lumps or masses felt on exam today. No redness or swelling notedDiscu ssed soreness likely r/t recent procedure on shouldersh e continues to f/u with her surgeon on this, has upcoming appt scheduledw e agreed to update breast u/s - order given to ptED precaution s reviewed with pt (chest pain, SOB, redness/sw elling, etc). Pt verbalized understand ingBP precaution s discussed, f/u with PCP. Time spent in visit is a total of 25 mins with at least 50% of visit consisting of counseling and review of plan of care. Health Concerns Section Related Observation LastModified by Organization Detai ls LastModified Time None Recorded Concern Status LastModified by Organization Details LastModified Time None Recorded Advance Directives Directive None Recorded Payers Encounter Date Sequence Insurance Name Policy Number Policy Alaniz Covered Member ID Alaniz Member ID Guarantor Name 09/03/2020 1 [facility] (MEDICARE REPLACEMENT/ ADVANTAGE - HMO) [id number] [id number] [place] 02/09/2023 1 [facility] (MEDICARE REPLACEMENT/ ADVANTAGE - HMO) [id number] [place] [address] [id number] [place]ay [place] Notes Date Note Type Note Provider Name and Address Organization Details Recorded Time 09/03/2020 text/html Patient is a 74y o who presents for an annual exam. Referred by her daughter Eun Chirinos. CHARISSE/BSO in 80s for bleeding. No concerns except supposed to be on alendronate and vit D and needs new prescriptions. last pap-hyst mammo-3 years colonoscopy-seeing GI wednesday dexa- 3 years, abnormal, doesn't know details menopause-y sexually active-n seatbelts-y exercise-y depression-denies domestic violence-denies tobacco-n concerns-no Brooke Suarez MD [address], [place], [address], [facility] 09/03/2020 16:55:17 02/09/2023 text/html 77yopresents for evaluation of right breast painright breast tenderness, notices it more with movement/soreness. Feels it mostly during physical therapysymptoms present for 2 monthss/p right shoulder arthroplasty 10/2022. Breast pain started about 1 month after surgery. She is in physical therapy currentlyshe saw her surgeon about this pain last week and was told related to procedure/physical therapy.Mammogram last 2 year ago denies swelling, chest pain, fevers, redness, irritation, SOB, etc GAGAN Faye [address], [place], [address], [facility] 02/09/2023 14:53:23 OBGyn Episode Ob Episode Information Episode Created Date Number of Fetuses Patient Bloodtype Patient rh Status Prepregnancy Weight lbs Domestic Partner Domestic Partner Phone Father Name Relocation Counselor Status 09/04/19 21 1 CLOSED Fetus Data First Name Last Name Admitted to NICU Weight (g) Sex Living Outcome Pediatric Complications Fetus ID Race Codes Race Delivery Type 2579.57 7704 F [id number] Vaginal Delivery Emiliano Calculation Initial Emiliano Date Initial Exam Date Initial Exam Provider Initial Ultrasound Date Last Menstrual Period Date Ultra Sound Weeks Gestation 0 Eighteen To Twenty Week Emiliano Update Ultra Sound Date Fundal Height At Umbil Quickening Date Ultra Sound Latest Weeks Gestation Final Emiliano Confirmed By Final Emiliano Confirmed Date Final Emiliano Date Ultra Sound Latest Days Gestation 0 0 Menstrual History Last Menstrual Date Menses Monthly On Bcp Conception Prior Menses Frequency Hcg Plus Date Menarche Onset Age Delivery Information Delivery Date Delivery Type Labor Anesthesia Weeks Gestation Incision Type Labor Labor Length Hrs Delivered By Post Complications Tubal Sterilization Discharge Date Comments 8 Discharge Information Feeding Method Contraceptive Method Maternal HG B and HCT Levels Ob Episode Information Episode Created Date Number of Fetuses Patient Bloodtype Patient rh Status Prepregnancy Weight lbs Domestic Partner Domestic Partner Phone Father Name Relocation Counselor Status 09/04/19 21 1 CLOSED Fetus Data First Name Last Name Admitted to NICU Weight (g) Sex Living Outcome Pediatric Complications Fetus ID Race Codes Race Delivery Type 3033.16 [id number] F [id number] Vaginal Delivery Emiliano Calculation Initial Emiliano Date Initial Exam Date Initial Exam Provider Initial Ultrasound Date Last Menstrual Period Date Ultra Sound Weeks Gestation 0 Eighteen To Twenty Week Emiliano Update Ultra Sound Date Fundal Height At Umbil Quickening Date Ultra Sound Latest Weeks Gestation Final Emiliano Confirmed By Final Emiliano Confirmed Date Final Emiliano Date Ultra Sound Latest Days Gestation 0 0 Menstrual History Last Menstrual Date Menses Monthly On Bcp Conception Prior Menses Frequency Hcg Plus Date Menarche Onset Age Delivery Information Delivery Date Delivery Type Labor Anesthesia Weeks Gestation Incision Type Labor Labor Length Hrs Delivered By Post Complications Tubal Sterilization Discharge Date Comments 6 Discharge Information Feeding Method Contraceptive Method Maternal HG B and HCT Levels
--- OUTSIDE RECORDS SUMMARY | 2024-09-12 12:26 | XMS_ITS ---
Author Organization [facility] [place] Address [address] [place] [address] Care Team Providers Care Financial Foundations Associate Name Role Phone Nilesh Wheeler [phone] REASON FOR VISIT *med f/u, possible inj Encounters Encounter Location Date Provider Diagnosis [facility] [address] [place] [address] [address] [place] [address] 06/27/2024 Nilesh Wheeler PLAN OF TREATMENT Next Appt Details Provider Name:Nilesh Jansen idt, 10/30/2024 10:30:00 AM, [address] [place] [address] [address], [address], [place], [address], Progress Notes * Saray BHAGAT DDOB:0 1945 (78 yo F)Acc No.[id number]:06/27/2024 Progress Notes Patient: SKYLANetsorSaray GLASGOW Provider: Nilesh Wheeler MD :1945 Age:78 Y Sex:Female Date:06/27/2024 Address[address] Subjective: * Chief Complaints: * 1. *med f/u, possible inj. * Medical History: Objective: Assessment: Plan: * Treatment: * Images: * Sign off status: Pending * Provider: Nilesh Wheeler MD Date: 06/27/2024
--- OUTSIDE RECORDS SUMMARY | 2024-09-12 12:27 | XMS_ITS | Encounter Summary ---
Author Organization [facility] Address 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
--- OUTSIDE RECORDS SUMMARY | 2024-09-12 12:27 | XMS_ITS | Encounter Summary ---
Author Organization [employer] Address 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
--- OUTSIDE RECORDS SUMMARY | 2024-09-12 12:27 | XMS_ITS ---
Author Organization [facility] Address [address] [place] [address] Care Team Providers Care Tube Winder Name Role Phone Nilesh Wheeler [phone] ALLERGIES Allergen (clinical drug ingredient) Drug/Non Drug Allergy documented on EMR Reaction Allergy Type Onset Date Status morphine Morphine Sulfate rash Drug Allergy Active Nubain vomiting Drug Allergy Active Sulfacet-R vomiting Drug Allergy Active iron Iron anaphylaxis Drug Allergy Activ e REASON FOR VISIT *med f/u MEDICATIONS Medication SIG (Take, Route, Frequency, Duration) Notes Start Date End Date Status Methadone HCl 5 MG 1-2 tablet Orally one every 6 hrs max 5 a day for 30 days 09/02/2024 09/02/2024 Active Triamcinolone Acetonide 0.1 % as directed Externally Twice a day Not-Taking Methadone HCl 5 MG 1-2 tablet Orally Q6 hrs max 5/day for 30 days 10/02/2024 10/02/2024 Active tiZANidine HCl 2 MG 1 tablet as needed Orally Three times a day for 30 days 12/15/2022 Not-Taking Vitamin D Active Levothyroxine Sodium 88 MCG 1 tablet on an empty stomach in the morning Orally Once a day Active Alendronate Sodium 70 MG 1 tablet 30 minutes before the first food, beverage or medicine of the day with plain water Orally Once a day Active Ondansetron HCl 4 MG as directed Orally PRN Active Estradiol 1 MG 1 tablet Orally Once a day Not-Taking Omeprazole 20 MG 1 capsule Orally Once a day Active Losartan Potassium 50 MG 1 tablet Orally Once a day Active VITAL SIGNS Temperature 98.2 degrees Fahrenheit 08/31/19 25 Heart Rate 66 /min 08/30/2024 Blood pressure systolic 175 mm Hg 08/31/19 25 Blood pressure diastolic 86 mm Hg 025 Weight 120 lbs 08/30/2024 BMI 21.95 kg/m2 08/30/2024 Height 62 in 08/30/2024 Respiratory Rate 18 /min 08/30/2024 Encounters Encounter Location Date Provider Diagnosis [facility] [address] [place] [address] 08/30/2024 Nilesh Wheeler Lumbar post-laminect kaleb syndrome M96.1 ; Spondylosis without myelopathy or radiculopathy, 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 At this point we [...] max 5 a day for 30 days 09/02/2024 09/02/2024 Methadone HCl 5 MG 1-2 tablet Orally Q6 hrs max 5/day for 30 days 10/02/2024 10/02/2024 Treatment Notes Assessment Notes Other Plan: 1. [...] Provider Name:Nilesh Jansen idt, 10/30/2024 10:30:00 AM, [address] [place] [address], [id number], Progress Notes * Saray BHAGAT DDOB:0 1945 (78 yo F)Acc No.[id number]:08/30/2024 Progress Notes Patient: ADANHUONGSaray VARGAS Provider: Nilesh Wheeler MD :1945 Age:78 Y Sex:Female Date:08/30/2024 Address:[address] Subjective: * Chief Complaints: * *med f/u * HPI: Follow-up Questionnaire: Pain Evaluation This patient encounter was conducted at the [facility]. The patient completed a questionnaire on the progress that has been made since the last office visit. This form was reviewed and the responses are included in this progress note.. Location of pain: low back. Onset of pain: days ago. Average Pain Since Last Visit on Scale of 0 to 10: 9. Number describing interference w/enjoyment of life: 9. Relief from Injections/Medications: d - I am sort of better, but not much.. Improvement in functional ability: d - I feel I can do more but the pain is still very much limiting what I can or cannot do.. Level of Pain on 1-10 Scale w/ 10 being most severe- TODAY 9. Level of Pain on 1-10 Scale w/ 10 being most severe- LEAST 5. Level of Pain on 1-10 Scale w/ 10 being most severe- WORST 10. Pain Level on 1-10 Scale w/ 10 being most severe- OVERALL 9. Words that best describe the pain: throbbing. Duration of pain: constant. Aggravating/Associated factors of pain: exercise, walking, rolling in bed, standing, sitting, taking stairs, moving from sitting to standing. The Pain is Associated with: weakness. Relieving factors of pain: heat, ice, medications. Patient comes in for a medication refill. Patient is having no dfficulties with the medication. Patient reports relief at [...] every 6 hrs max 5 a day Methadone HCl 5 MG Tablet 1-2 tablet Orally Q6 hrs max 5/day , Notes to Pharmacist: 08/03/2024Taking Vitamin D Taking Losartan Potassium 50 MG [...] every 6 hrs max 5 a day Taking Methadone HCl 5 MG Tablet 1-2 tablet Orally Q6 hrs max 5/day , Notes to Pharmacist: 08/03/2024Not-TakingEstradiol 1 MG Tablet 1 tablet Orally Once [...] vomitingIron: anaphylaxisno[Allergies Verified] Objective: * Vitals: Temp: 98.2 F, HR: 66 /min, BP: 175/86 mm Hg, Wt: 120 lbs, BMI: 21.95 [...] true * Provider: Nilesh Wheeler MD Date: 08/30/2024 History and Physical Notes * HPI (History of Present Illness) Category Sub-Category Detail Notes Category Not es Follow-up Questionnaire Average Pain Since Last Visit on Scale of 0 to 10: 9 Patient comes in for a medication refill. Patient is having no dfficulties with the medication. Patient reports relief at the 60% level. Number describing interferen ce w/enjoyment of life: 9 Relief from Injections/Medications: d - I am sort of better, but not much. Improvement in functional ability: d - I feel I can do more but the pain is still very much limiting what I can or cannot do. Pain Evaluation This patient encount er was conducted at the [facility]. The patient completed a questionnaire on the progress that has been made since the last office visit. This form was reviewed and the responses are included in this progress note. Onset of pain: days ago Location of pain: low back Duration of pain: constant Words that best describe the pain: throb bucky Aggravating/Associated factors of pain: exercise, walking, rolling in bed, standing, sitting, taking stairs, moving from sitting to standing Relieving factors of pain: heat, ice, me dications Level of Pain on 1-10 Scale w/ 10 being most severe- TODAY 9 Level of Pain on 1-10 Scale w/ 10 being most severe- LEAST 5 Level of Pain on 1-10 Scale w/ 10 being most severe- WORST 10 Pain Level on 1-10 Scale w/ 10 being most severe- OVERALL 9 The Pain is Associated with: weakness Examination Category Sub-Category Detail Notes Category Not [...]
--- OUTSIDE RECORDS SUMMARY | 2024-09-12 12:27 | XMS_ITS | Patient Health Record ---
Author Organization [facility] Address [address] [address] Care Team Providers Care Die Casting Machine Operator Name Role Phone Nilesh Wheeler [phone] ALLERGIES Allergen (clinical drug ingredient) Drug/Non Drug Allergy documented on EMR Reaction Allergy Type Onset Date Status morphine Morphine Sulfate rash Drug Allergy Active Nubain vomiting Drug Allergy Active Sulfacet-R vomiting Drug Allergy Active iron Iron anaphylaxis Drug Allergy Activ e REASON FOR REFERRAL No Information MEDICATIONS Medication SIG (Take, Route, Frequency, Duration) Notes Start Date End Date Status Levothyroxine Sodium 88 MCG 1 tablet on an empty stomach in the morning Orally Once a day Active Alendronate Sodium 70 MG 1 tablet 30 minutes before the first food, beverage or medicine of the day with plain water Orally Once a day Active Ondansetron HCl 4 MG as directed Orally PRN Active Estradiol 1 MG 1 tablet Orally Once a day Not-Taking Methadone HCl 5 MG [...] 30 days 12/15/2022 Not-Taking Vitamin D Active Losartan Potassium 50 MG 1 tablet Orally Once a day Active Omeprazole 20 MG 1 capsule Orally Once a day Active SOCIAL HISTORY Tobacco Use: Social History Observation Description Date Details (start date - stop date) Never Smoker NA - NA Sex Assigned At : Social History Observation Description Sex Assigned At Unknown Tobacco Use/Smoking Question Answer Notes Are you a nonsmoker Alcohol Screen (Audit-C) Question Answer Notes Did you have a drink containing alcohol in the p ast year? No Points 0 Interpretation Negative PROBLEMS Problem Type ICD Code Onset Dates Problem Status W/U Status Risk SNOMED Code Notes Problem Spondylosis without myelopathy or radiculopathy, cervicothoracic region (M47.813) Active confirmed Cervical spondylosis without myelopathy (821955339) Problem Lumbar post-laminectomy syndrome (M96.1) Active confirmed Lumbar post-laminectom y syndrome (524678231) Problem Arthritis of lumbosacral spine (M47.817) Active confirmed Arthritis of lumbosacral spine (295529795) Problem Bilateral sacroiliitis (M46.1) Active confirmed Bilateral sacroiliitis (2811646224) Problem Lumbar foraminal stenosis (M48.061) Active confirmed Lumbar sp inal stenosis (26259186) VITAL SIGNS Heart Rate 66 /min 08/30/2024 Temperature 98.2 degrees Fahrenheit 08/30/2024 Respiratory Rate 18 /min 08/30/2024 Blood pressure diastolic 86 mm Hg 08/30/2024 Height 62 in 08/30/2024 Blood pressure systolic 175 mm Hg 08/30/2024 Weight 120 lbs 08/30/2024 BMI 21.95 kg/m2 08/30/2024 Encounters Encounter Location Date Provider Diagnosis [facility] [address] [place] [address] 11/09/2023 Nilesh Wheeler [facility] [address] [place] [address] 11/30/2023 Nilesh Wheeler [facility] [address] [facility] [address] [place] [address] 06/27/2024 Nilesh Wheeler [facility] [address] [place] [address] 11/23/2023 Nilesh Wheeler Lumbar post-laminect kaleb syndrome M96.1 ; Spondylosis without myelopathy or radiculopathy, 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 ; Arthritis of lumbosacral spine M47.817 and Bilateral sacroiliitis M46.1 [facility] [address] [place] [address] 12/28/2023 Nilesh Wheeler Lumbar post-laminect kaleb syndrome M96.1 ; Spondylosis without myelopathy or radiculopathy, 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 ; Arthritis of lumbosacral spine M47.817 and Bilateral sacroiliitis M46.1 [facility] [address] [place] [address] 02/29/2024 Nilesh Wheeler Lumbar post-laminect kaleb syndrome M96.1 ; Spondylosis without myelopathy or radiculopathy, 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 ; Arthritis of lumbosacral spine M47.817 and Bilateral sacroiliitis M46.1 [facility] [address] [place] [address] 04/20/2024 Nilesh Wheeler Lumbar post-laminect kaleb syndrome M96.1 ; Spondylosis without myelopathy or radiculopathy, 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 ; Arthritis of lumbosacral spine M47.817 and Bilateral sacroiliitis M46.1 [facility] [address] [place] [address] 07/04/2024 Nilesh Wheeelr Lumbar post-laminect kaleb syndrome M96.1 ; Spondylosis without myelopathy or radiculopathy, 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 ; Arthritis of lumbosacral spine M47.817 ; Bilateral sacroiliitis M46.1 and Lumbar foraminal stenosis M48.061 [facility] [address] [place] [address] 08/30/2024 Nilesh Wheeler Lumbar post-laminect kaleb syndrome M96.1 ; Spondylosis without myelopathy or radiculopathy, 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 ; Arthritis of lumbosacral spine M47.817 ; Bilateral sacroiliitis M46.1 and Lumbar foraminal stenosis M48.061 [facility] [address] [place] [address] 11/10/2023 Nilesh Summer [facility] [address] [place] [address] 12/28/2023 Nilesh Wheeler Lumbar post-laminect kaleb syndrome M96.1 [facility] [address] [place] [address] 02/29/2024 Nilesh Wheeler Lumbar post-laminect kaleb syndrome M96.1 ASSESSMENTS Encounter Date Diagnosis Assessment Notes Treatment Notes Treatment Clinical Notes Section Notes 11/23/2023 Lumbar post-laminectomy syndrome (ICD-10 - M96.1) 12/28/2023 Lumbar post-laminectomy syndrome (ICD-10 - M96.1) 12/28/2023 Lumbar post-laminectomy syndrome (ICD-10 - M96.1) 02/29/2024 Lumbar post-laminectomy syndrome (ICD-10 - M96.1) 02/29/2024 Lumbar post-laminectomy syndrome (ICD-10 - M96.1) 04/20/2024 Lumbar post-laminectomy syndrome (ICD-10 - M96.1) 07/04/2024 Spondylosis without myelopathy or radiculopathy, 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) 07/04/2024 Lumbar post-laminectomy syndrome (ICD-10 - M96.1) 08/30/2024 Lumbar post-laminectomy syndrome (ICD-10 - M96.1) 07/04/2024 Arthritis of lumbosacral spine (ICD-10 - M47.817) 04/20/2024 Spondylosis without myelopathy or radiculopathy, 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) 02/29/2024 Spondylosis without myelopathy or radiculopathy, 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) 11/23/2023 Spondylosis without myelopathy or radiculopathy, 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) 12/28/2023 Spondylosis without myelopathy or radiculopathy, 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) 08/30/2024 Spondylosis without myelopathy or radiculopathy, 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) 12/28/2023 Arthritis of lumbosacral spine (ICD-10 - M47.817) 11/23/2023 Arthritis of lumbosacral spine (ICD-10 - M47.817) 02/29/2024 Arthritis of lumbosacral spine (ICD-10 - M47.817) 04/20/2024 Arthritis of lumbosacral spine (ICD-10 - M47.817) 07/04/2024 Bilateral sacroiliitis (ICD-10 - M46.1) 08/30/2024 Arthritis of lumbosacral spine (ICD-10 - M47.817) 08/30/2024 Bilateral sacroiliitis (ICD-10 - M46.1) 07/04/2024 Lumbar foraminal stenosis (ICD-10 - M48.061) 04/20/2024 Bilateral sacroiliitis (ICD-10 - M46.1) 02/29/2024 Bilateral sacroiliitis (ICD-10 - M46.1) 11/23/2023 Bilateral sacroiliitis (ICD-10 - M46.1) 12/28/2023 Bilateral sacroiliitis (ICD-10 - M46.1) 08/30/2024 Lumbar foraminal stenosis (ICD-10 - M48.061) 11/23/2023 Other Plan: 1. At this point we [...] for this patient are currently being met. 12/28/2023 Other Plan: 1. At this point we [...] for this patient are currently being met. 02/29/2024 Other Plan: 1. At this point we [...] for this patient are currently being met. 04/20/2024 Other Plan: 1. At this point we [...] for this patient are currently being met. 07/04/2024 Other Plan: 1. At this point [...] for this patient are currently being met. 08/30/2024 Other Plan: 1. At this point [...] are currently being met. PLAN OF TREATMENT Next Appt Details Provider Name:Nilesh Michela Jansen idt, 10/30/2024 10:30:00 AM, [address], [place], [address], Insurance Providers Payer Name Payer Address Payer Phone Subscriber Number Group Number Insured Name Patient Relationship to Insured Coverage Start Date Coverage End Date MEDICARE SERVICES [address] [address] [place], [place] [id number] Saray Mayorga Self - patient is the insured [employer]. [address] [place] [id number] Saray Mayorga Self - patient is the insured MEDICATIONS ADMINISTERED Medication Instructions Date of Administration Dosage Notes Bilateral L1, L2 and L3 Medi al Branch Block 11/04/2021 Bilateral L1, L2 and L3 Medi al Branch Block 02/10/2022 Left L1-2, L2-L3, L3-L4 Face t Joint Injection 06/25/2020 Left L3 Selective Epidural S teroid Injection 07/05/2018 Left L3 Selective Epidural S teroid Injection 12/13/2018 Left L3 Selective Epidural S teroid Injection 12/27/2018 Left L3 Selective Epidural S teroid Injection 05/14/2020 Left L3 Selective Epidural S teroid Injection 08/25/2022 Left L3 Selective Epidural S teroid Injection 06/29/2023 Left S1 Selective Epidural S teroid Injection 02/01/2018 Left S1 Selective Epidural S teroid Injection 05/31/2018 Left S1 Selective Epidural S teroid Injection 06/13/2019 Left S1 Selective Epidural S teroid Injection 11/07/2019 Left S1 Selective Epidural S teroid Injection 04/30/2020 Left S1 Selective Epidural S teroid Injection 05/12/2022 Right L1/L2, L2/L3, L3/L4 Fa cet Joint Injection 06/25/2020 Right L2 Selective Epidural Steroid Injection 06/29/2023 Right L3 Selective Epidural Steroid Injection 07/05/2018 Right L3 Selective Epidural Steroid Injection 12/13/2018 Right L3 Selective Epidural Steroid Injection 12/27/2018 Right L3 Selective Epidural Steroid Injection 05/14/2020 Right L3 Selective Epidural Steroid Injection 11/12/2020 Right L3 Selective Epidural Steroid Injection 06/10/2021 Right L3 Selective Epidural Steroid Injection 07/08/2021 Right L3 Selective Epidural Steroid Injection 08/25/2022 Right S1 Selective Epidural Steroid Injection 02/01/2018 Right S1 Selective Epidural Steroid Injection 05/31/2018 Right S1 Selective Epidural Steroid Injection 06/13/2019 Right S1 Selective Epidural Steroid Injection 11/07/2019 Right S1 Selective Epidural Steroid Injection 04/30/2020 Right S1 Selective Epidural Steroid Injection 11/12/2020 Right S1 Selective Epidural Steroid Injection 06/10/2021 Right S1 Selective Epidural Steroid Injection 07/08/2021 Right S1 Selective Epidural Steroid Injection 05/12/2022 MEDICAL (GENERAL) HISTORY Medical History History ICD Code hypertension thyroid disease Surgical History Surgery Date(Month/Year) hysterectomy cholecystectomy rotator cuff tear repair Back tonsillectomy Cervical disc trigger finger right shoulder replacement 11/10/22 back surgery 01/05/2024 Hospitalization History Reason Date(Month/Year) icu due to iron infusion issues 08/2021
--- OUTSIDE RECORDS SUMMARY | 2024-09-12 12:27 | XMS_ITS | Encounter Summary ---
Author Organization [facility] Care Team Providers Care Cash Applications Manager Name Role Phone Milo Oden MD Primary Care Provider [phone] Sánchez Julian DO Unavailable [phone] Lev Diaz MD Unavailable [phone] Encounter Details Date Type Department Care Team (Latest Contact Info) Description 11/05/2017 Orders Only [facility] ProviderTaran MD [address] [place] [id number] Social History Tobacco Use Types Packs/Day Years Used Date Smoking Tobacco: Never Assessed Comments Unknown Sex and Gender Information Value Date Recorded Sex Assigned at Not on file Legal Sex 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 Historical Provider Final Res ult documented in this encounter Visit Diagnoses Not on filedocumented in this encounter Care Teams Cash Applications Manager Relationship Specialty Start Date End Date Milo Oden MD [address] [facility] [address] [place] [address] PCP - General Internal Medicine 12/02/16 Sánchez Julian DO [address] [place] [address] MEDICAL ONCOLOGY, [address] [address] Medical Oncologist/Supervisor [employer] Hematology and Oncology 07/02/21 Lev Diaz MD [address] [facility] APRIL [facility] [address] [place] [address] Consulting Physician Orthopedic Surgery 11/11/22 documented as of this encounter
--- OUTSIDE RECORDS SUMMARY | 2024-09-12 12:27 | XMS_ITS | Clinical Summary ---
Author Organization [facility] Address [address] [place] [address] Care Team Providers Care Tank Farm Attendant Name Role Phone Milo Oden Primary Care Provider [phone] Source Comments [facility],non-owned Affiliates and Associated Physician Practices is amultiple site organization consisting of ambulatory clinics and hospital sitesin [place], [place], [place] and [place]. This disclosure is being madepursuant to the Care Everywhere program and may not contain all information available regarding this patient. Last updated 18.[facility] Allergies Active Allergy Reactions Criticality Noted Date Comments Morphine Nausea and/or Vomiting 03/29/2009 Nalbuphine Hcl Nausea and/or Vomiting 9 Sulfa Drugs Urticaria,Nausea 03/29/2009 Medications * Be aware that medications may not be up to date on this document. Alwaysverify current medications with the patient. levothyroxine (SYNTHROID) 75 MCG tablet Take 75 mcg by mouth daily before breakfast. Active valsartan-hydroc hlorothiazide (DIOVAN HCT) 160-25 MG tablet Take 1 Tab by mouth daily. Active ondansetron (ZOFRAN) 4 MG tablet Take 4 mg by mouth every 6 hours as needed for Nausea/Vomi ting. Active omeprazole (PRILOSEC) 20 MG capsule Take 20 mg by mouth as needed for Heartburn. Active vitamin D2 (ERGOCALCIFEROL) 55626 UNIT capsule Take 1 Cap by mouth every 30 days. Active alendronate (FOSAMAX) 70 MG tablet Take 70 mg by mouth every 7 days before meal. WEDNESDAY Active calcium-vitamin D (CALTRATE PLUS D) 600-200 MG-UNIT tablet Take 1 Tab by mouth 3 times daily. Active PREMARIN PO Take 0.425 mg by mouth daily. Active desloratadine (CLARINEX) 5 MG tablet Take 5 mg by mouth daily. Active hydrocodone-acet aminophen (VICODIN) 5-500 MG tablet Take 1-2 Tabs by mouth every 4 hours as needed for Pain. 40 1 04/04/2009 Active methocarbamol (ROBAXIN) 750 MG tablet Take 1 Tab by mouth 4 times daily as needed for Muscle Spasms. 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 Gender Identity Not on file Sexual Orientation Not on file Last Filed Vital Signs Vital Sign Reading Time Taken Comments Blood Pressure 105/55 04/04/2009 2:00 PM SUPERVISOR CLAM BED Pulse 59 04/04/2009 2:00 PM SUPERVISOR CLAM BED Temperature 37.2 C (98.9 F) 04/04/2009 2:00 PM SUPERVISOR CLAM BED Respiratory Rate 16 04/04/2009 2:00 PM SUPERVISOR CLAM BED Oxygen Saturation 99% 04/04/2009 2:00 PM SUPERVISOR CLAM BED Inhaled Oxygen Concentration - - Weight 54.4 kg (120 lb) 04/02/2009 12:19 PM SUPERVISOR CLAM BED Height 157.5 cm (5' 2 ) 04/02/2009 12:19 PM SUPERVISOR CLAM BED Body Mass Index 21.95 04/02/2009 12:19 PM SUPERVISOR CLAM BED Plan of Treatment Health Maintenance Due Date Last Done Comments BONE DENSITY TESTING 1945 HEPATITIS C SCREENING 10/26/1964 DTAP/TDAP/TD VACCINES (1 - Tdap) 1965 PNEUMOCOCCAL VACCINE 50+ (1 of 1 - PCV) 1996 ZOSTER VACCINE (1 of 2) 1996 Respiratory Syncytial Virus (RSV) Vaccine Pt: or over 60 yrs (1 - 1-dose 75+ series) 2021 COVID-19 VACCINE ( - 2023-2 5 season) 2024 DEPRESSION SCREENING 05/03/2024 INFLUENZA VACCINE (Season Ended) 2025 HEPATITIS B VACCINE Aged Out No longe r eligible based on patient's age to complete this topic HIB VACCINE Aged Out No longer eligi ble based on patient's age to complete this topic HPV VACCINE Aged Out No longer eligi ble based on patient's age to complete this topic MENINGOCOCCAL (Group B) VACC INE SHARED DECISION-MAKING Aged Out No longer eligibl e based on patient's age to complete this topic MENINGOCOCCAL GROUPS A/C/Y/W VACCINE Aged Out No longer eligible b ased on patient's age to complete this topic Insurance MEDICARE Care Teams Tank Farm Attendant Relationship Specialty Start Date End Date Milo Oden DO [address] [facility] [address] [place] [address] PCP - General 02/22/19
--- OUTSIDE RECORDS SUMMARY | 2024-09-12 12:27 | XMS_ITS | Clinical Summary ---
Author Organization [facility] Nasim Burgess Address [address] [place] [address] Care Team Providers Care Protocol Officer Name Role Phone Unavailable Primary Care Provider Unavailabl e Allergies Active Allergy Reactions Criticality Noted Date Comments Iron Anaphylaxis High 05/22/2022 Morphine Nausea and Vomiting Low 05/05/2022 Nalbuphine Rash Low 05/05/2022 Sulfa (Sulfonamide Antibiotics) Rash Low 07/2022 Medications methadone (DOLOPHINE) 5 mg Tablet Take 5 mg by mouth daily after lunch. Active omeprazole (PriLOSEC) 40 mg Capsule, Delayed Release(E.C.) Take 40 mg by mouth daily. Can have up to twice daily if needed Active ondansetron (ZOFRAN) 4 mg Tablet Take 4 mg by mouth every 8 hours as needed for Nausea/Emesis . Active lipase-protease -amylase DR (MAICO) 24,000-76,000-1 20,000 unit capsule Take 2 Capsules by mouth 3 times daily with meals. Active L gasseri/B bifidum/B longum (HUGGINS [employer] HE[facility] ORAL) Take by mouth daily. Active levothyroxine 100 mcg tablet Take 100 mcg by mouth daily in the morning. Active acetaminophen (TYLENOL) 325 mg tablet Take 325 mg by mouth every 4 hours as needed. Active losartan (COZAAR) 50 mg tablet Take 50 mg by mouth daily. Active pravastatin (PRAVACHOL) 10 mg tablet Take 10 mg by mouth daily. Active desloratadine (CLARINEX) 5 mg tablet Take 5 mg by mouth 1 time daily as needed. Active alendronate (FOSAMAX) 70 mg tablet Take 70 mg by mouth every 7 days. empty stomach before other meds,with 8oz of water, stay upright 30 min. Takes on Fridays Active cholecalciferol 1,250 mcg (50,000 unit) Capsule Take 50,000 Units by mouth every 7 days. On fridays Active cyclobenzaprine (FLEXERIL) 10 mg tablet Take 1 Tablet (10 mg) by mouth every 8 hours as needed for Spasm. 42 Tablet 1 01/09/2024 6:23 PM CDT 01/08/2024 Active Active Problems No known active problems Encounters Date Type Department Care Team Description 09/05/2024 External Device Data [facility] ABSTRACTION Provider, Abstract 08/22/2024 External Device Data [facility] ABSTRACTION Provider, Abstract 08/15/2024 External Device Data [facility] ABSTRACTION Provider, Abstract 07/19/2024 External Device Data [facility] ABSTRACTION Provider, Abstract 07/08/2024 External Device Data [facility] ABSTRACTION Provider, Abstract 07/08/2024 External Device Data [facility] ABSTRACTION Provider, Abstract 06/21/2024 External Device Data [facility] ABSTRACTION Provider, Abstract 06/21/2024 External Device Data [facility] ABSTRACTION Provider, Abstract from Last 3 Months Family History Medical History Relation Name Comments Heart Disease Brother Prostate Cancer Brother No Known Problems Daughter 1 Breast Cancer Daughter 2 Heart Disease Father Leukemia Father Pancreatic Cancer Father Heart Disease Mother Heart Disease Sister Relation Name Status Comments Brother Alive Daughter 1 Alive Daughter 2 Alive Father Mother Sister Alive Social History Tobacco Use Types Packs/Day Years Used Date Smoking Tobacco: Never Smokeless Tobacco: Never Tobacco Cessation:Counseling Given: Not Answered Alcohol Use Standard Drinks/Week Comments Never 0 (1 standard drink = 0.6 oz pur e alcohol) Feeling Safe Answer Date Recorded Are you in a relationship wi th someone who hurts you emotionally and/or physically? 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 Gender Identity Not on file Sexual Orientation Not on file Last Filed Vital Signs Vital Sign Reading Time Taken Comments Blood Pressure 117/37 01/09/2024 4:27 PM CDT Pulse 78 01/09/2024 4:27 PM CDT Temperature 36.7 C (98 F) 01/09/2024 4:27 PM CDT Respiratory Rate 15 01/09/2024 4:27 PM CDT Oxygen Saturation 100% 01/09/2024 4:27 PM CDT Inhaled Oxygen Concentration - - Weight 65.3 kg (144 lb) 01/05/2024 6:12 AM CDT Height 157.5 cm (5' 2 ) 01/05/2024 6:12 AM CDT Body Mass Index 26.34 01/05/2024 6:12 AM CDT Plan of Treatment Health Maintenance Due Date Last Done Comments DTAP/TDAP/TD VACCINES (1 - Tdap) 1965 ZOSTER VACCINE (1 of 2) 1996 RSV VACCINE (60+ or ) (1 - 1-dose 75+ series) 2021 PNEUMOCOCCAL VACCINE 50+ YEARS (2 of 2 - PCV) 12/02/19 23 12/01/2021 INFLUENZA VACCINE (#1) 2023 OSTEOPOROSIS SCREENING 10/28/2028 10/29/2023 COLORECTAL SCREENING Discontinued 01/11/2014 Colorectal Cancer Screening Discontinued FIT-DNA Q 3 years Discontinued FIT/FOBT Q 1 year Discontinued Flex Sig/CT Colonography Q 5 years Discontinued Medical Devices Implanted Type Area Record Keeper Device Identifier Shelf Expiration Date Model / Serial / Lot Hemostatic Surgiflo 8ml W/ Thrombin 2994 - [id number] Implanted:Qty: 1 on 01/05/2024 by Chemo Cook MD at [facility] Hemostatic N/A: Spine Lumbar [employer] 08/30/2024 2994 / / [id number] Screw Implanted:Qty: 6 on 01/05/2024 by Chemo Cook MD at [facility] Other N/A: Spine Lumbar [employer] INC 36-2000 / / Description:1X ADD JM Influx Proteios Large Implanted:Qty: 1 on 01/05/2024 by Chemo Cook MD at [facility] Other N/A: Spine Lumbar [employer] 09/13/2028 [id number] / / [id number] Description:1X ADD NELY AVE TO FOLLOW-RDJ Body Top Loading Implanted:Qty: 6 on 01/05/2024 by Chemo Cook MD at [facility] Other N/A: Spine Lumbar [employer] [id number] / / Description:1X ADD NELY Putty Graft I-Factor Peptide Enhanced 5.0ml Syr 700-050 - [id number] Implanted:Qty: 1 on 01/05/2024 by Chemo Cook MD at [facility] Putty N/A: Spine Lumbar [employer] 03/02/2026 700-050 / / [id number] Eric Frbrd Crv Ti 5.5x55mm [id number] - [id number] Implanted:Qty: 2 on 01/05/2024 by Chemo Cook MD at [facility] Eric N/A: Spine Lumbar [employer] [id number] / / Screw Implanted:Qty: 2 on 01/05/2024 by Chemo Cook MD at [facility] Screw N/A: Spine Lumbar [employer] [id number] / / Description:1X ADD NELY Screw Frbrd St 6.5x45mm [id number] - [id number] Implanted:Qty: 4 on 01/05/2024 by Chemo Coko MD at [facility] Screw N/A: Spine Lumbar [employer] [id number] / / Description:1X ADD NELY Putty Allofuse+ Dbm 5ml [id number] - [id number] Implanted:Qty: 1 on 01/05/2024 by Chemo Cook MD at [facility] Tissue N/A: Spine Lumbar [employer] 03/09/2025 [id number] / / [id number] 1 Description:SHANIA [id number] DJ Bone Canc Crushed 30ml [id number] - [id number] Implanted:Qty: 1 on 01/05/2024 by Chemo Cook MD at [facility] Tissue N/A: Spine Lumbar [employer] [id number] 02/14/2028 [id number] / [id number] / Description:[id number] Right Shoulder Replacement Explanted Type Area Record Keeper Device Identifier Shelf Expiration Date Model / Serial / Lot Lumbar Hardware Explanted:Qty: 1 on 01/05/2024 by Chemo Cook MD at [facility] Description:Six screws; Two rods; Six set screws removed Procedures Procedure Name Priority Date/Time Associated Diagnosis Comments XR DEXA BONE DENSITY AXIAL 1 OR MORE SITES Routine 10/29/2023 1:48 PM CDT Spondylosis of lumbar region without myelopathy or radiculopathy from Last 3 Months or Most Recently Relevant to Health Maintenance Results * XR DEXA BONE DENSITY AXIAL 1 OR MORE SITES (10/29/2023 1:48 PM CDT) Anatomical Region Laterality Modality Computed Radiogr aphy 10/29/2023 1:48 PM CDT Impressions 10/29/2023 2:29 PM CDT FINDINGS/IMPRESSION: Osteoporosis with a lowest T score of -2.5. Fracture risk is high. FRAX: 10 year probability of major osteoporotic fracture is 16.7 %. 10 year probability of hip fracture is 5.4 %. Please refer to the full report available in [employer] under the PACS Images tab. If a faxed copy is needed, please call [phone]. DICTATION LOCATION: [facility] Narrative 10/29/2023 2:29 PM CDT SUMMARY DEXA REPORT DATE: 10/29/2023 1:48 PM INDICATION: Postmenopausal Procedure Note Ayad Nolen MD - 10/29/2023 SUMMARY DEXA REPORT DATE: 10/29/2023 1:48 PM INDICATION: Postmenopausal FINDINGS/IMPRESSION: Osteoporosis with a lowest T score of -2.5. Fracture risk is high. FRAX: 10 year probability of major osteoporotic fracture is 16.7 %. 10 year probability of hip fracture is 5.4 %. Please refer to the full report available in [facility] under the PACS Images tab. If a faxed copy is needed, please call [phone]. DICTATION LOCATION: [facility] Chemo Cook MD DIAGNOSTIC IMAGING ORDERABLES Final Result from Last 3 Months or Most Recently Relevant to Health Maintenance Insurance RX [employer] RX Member Subscriber Plan / Payer (Ef fective 2020-Present) Name:Saray Park Relation to Subscriber:Self Name:Saray Park Payer ID:Not on file Group ID:[id number] Type:RX Medicare Part D Address: [address] Advance Directives For more information, please contact: [phone] * Full Code (Latest Code Status on File) Date Activated Date Inactivated Comments 01/05/2024 2:42 PM 01/09/2024 8:37 PM
[2024-09-12 12:47] LABS: Basophils Absolute Auto 0.1 K/mm3 (0.0-0.1); Basophils Percent Auto 1.3 % (0.2-1.2); Eosinophils Absolute Auto 0.4 K/mm3 (0-0.3); Hematocrit 31.9 % (37.0-47.0); Hemoglobin 9.5 g/dL (12.0-15.0); Immature Granulocyte Absolute 0.02 K/mm3 (0.00-0.031); Immature Granulocyte Percent A 0.3 % (0-0.5); Lymphocytes Absolute Auto 2.23 K/mm3 (0.9-3.2); Mean Corpuscular HGB Conc 29.8 g/dl (32-36); Mean Corpuscular Hemoglobin 28.4 pg (26-34); Mean Corpuscular Volume 95.5 fl (80-100); Mean Platelet Volume 9.7 fl (7.4-10.4); Monocytes Absolute Auto 0.6 K/mm3 (0.1-0.6); Monocytes Percent Auto 8.9 % (2.6-8.5); Neutrophils Absolute Auto 3.8 K/mm3 (1.3-6.7); Neutrophils Percent Auto 52.5 % (45.5-73.1); Platelet Count Result 318 k/mm3 (150-375); Red Blood Count 3.34 M/mm3 (4.2-5.4); Red Cell Distribution Width 13.6 % (11.5-14.5); White Blood Count 7.2 K/mm3 (4.5-10.0)
[2024-09-12 13:13] LABS: Hypochromasia 1+; Platelet Estimate Adequate (Adequate); Schistocytes None Seen
[2024-09-12 14:21] LABS: Iron 92 ug/dL (37-170)
[2024-09-12 14:55] LABS: Percent Iron Saturation 28 % (20-50)
== END 2024-09-12 12:21 | disposition home or self-care (01) ==
PROVIDERS: PCP Internal Medicine; Visit Provider Internal Medicine
DX: M19.042 Primary osteoarthritis, left hand (principal); D50.9 Iron deficiency anemia, unspecified
CPT/HCPCS: 36415; 73130; 82728; 83540; 83550; 85025

== ENCOUNTER 2025-01-08 15:58 | Outpatient (CLI) | payer MEDICARE, SELFPAY ==
--- OUTSIDE RECORDS SUMMARY | 2024-06-27 11:30 | XMS_ITS ---
Author Organization [facility] Address [address] [place] [address] Care Team Providers Care Emergency Veterinary Technician Name Role Phone Nilesh Wheeler [phone] REASON FOR VISIT *med f/u, possible inj Encounters Encounter Location Date Provider Diagnosis [facility] Office [address] [place] [address] [address] [place] [address] 06/27/2024 Nilesh Wheeler Plan Of Treatment Next Appt Details Provider Name:Nilesh Jansen idt, 01/11/2025 10:30:00 AM, [address] [place] [address] [address], [place], [address], Progress Notes * Saray BHAGAT DDOB:0 1945 (79 yo F)Acc No.[id number]:06/27/2024 Progress Notes Patient: Gerson POOLSaray GLASGOW Provider: Marshall Wheeler MD :1945 A ge:78 Y S ex:Female Date:06/27/2024 Address:[address] Subjective: * Chief Complaints: * 1 . *med f/u, possible inj. * Medical History: Objective: * Vitals: Assessment: Plan: * Treatment: * * Electronic signature of Elmo Wheeler MD on 01/08/2025 at 05:03 PM EDT Sign off status: Pending * Provider: Marshall Wheeler MD Date: 0 06/27/2024 Generated for Printi ng/Shaye/eTransmitting on: 0 01/08/2025 05:03 PM EDT
--- OUTSIDE RECORDS SUMMARY | 2024-10-30 05:30 | XMS_ITS ---
Author Organization [facility] Address [address] [place] [address] Care Team Providers Care Python Engineer Name Role Phone Nilesh Wheeler [phone] REASON FOR VISIT *f/u poss inj Encounters Encounter Location Date Provider Diagnosis [facility] Office [address] [place] [address] [address] [place] [address] 10/30/2024 Nilesh Wheeler Plan Of Treatment Next Appt Details Provider Name:Nilesh Jansen idt, 01/11/2025 10:30:00 AM, [address] [place], [place] [address], [address], [place], [address], Progress Notes * Saray BHAGAT DDOB:0 1945 (79 yo F)Acc No.[id number]:10/30/2024 Progress Notes Patient: Gerson POOLSaray GLASGOW Provider: Marshall Wheeler MD :1945 A ge:78 Y S ex:Female Date:10/30/2024 Address[address] Subjective: * Chief Complaints: * 1 . *f/u poss inj. * Medical History: Objective: * Vitals: Assessment: Plan: * Treatment: * * Electronic signature of Elmo Wheeler MD on 01/08/2025 at 05:03 PM EDT Sign off status: Pending * Provider: Marshall Wheeler MD Date: 0 10/30/2024 Generated for Printi ng/Fakj/eTransmitting on: 0 01/08/2025 05:03 PM EDT
--- NOTE | ~2025-01-08 | XR_ITS ---
EXAMINATION: XR chest 2V, 01/08/2025 16:04 CDT HISTORY: R06.2 - Wheezing FOR SEVERAL MONTHS COMPARISON: No comparisons available. Technique: 2 views obtained. Findings: The lungs are clear, no effusion. No pneumothorax. Heart is normal size. Mediastinal and hilar contours are within normal limits. Bony thorax no acute abnormality. Impression: No acute cardiopulmonary abnormality. Reviewed, dictated and finalized at location A. Impression: No acute cardiopulmonary abnormality.
--- NOTE | ~2025-01-08 | US_ITS ---
EXAMINATION: US venous doppler [facility], 01/08/2025 16:00 CDT HISTORY: M79.89 - Other specified soft tissue disorders COMPARISON: None Technique: Mir-scale and color Doppler images were attempted of the lower saphenofemoral junction, common femoral vein,superficial femoral vein, proximal deep femoral vein, proximal deep femoral vein, popliteal vein and posterior tibial veins. Findings: Deep Venous System:Normal flow, augmentation and compressibility. No echogenic thrombus identified. Superficial Venous SystemNo superficial thrombophlebitis. Soft tissues: Soft tissues are unremarkable. Impression: Negative for DVT. Reviewed, dictated and finalized at location A. Impression: Negative for DVT.
--- OUTSIDE RECORDS SUMMARY | 2025-01-08 16:03 | XMS_ITS | Clinical Summary ---
Author Organization [facility] Address [address] [place] [address] Phone Care Team Providers Care Retail Clerk Name Role Phone DaphneyMlio sepulveda Prema WHALEN Primary Care Provider [phone] Allergies Active Allergy Reactions Criticality Noted Date [...] 2:59 PM CDT Height 157.5 cm (5' 2) 02/16/2019 2:59 PM CDT Body Mass Index 23.78 02/16/2019 2:59 PM CDT Plan of Treatment Health Maintenance Due Date Last Done Comments Hepatitis C Virus (HCV) Screening 1945 Pneumococcal Immunization (5 0+ years) (1 of 1 - PCV) 1996 Zoster Immunization (1 of 2) 1996 Respiratory Syncytial Virus (RSV) Immunization (Adult) (1 - 1-dose 75+ series) 2021 Influenza Immunization (#1) 2025 SARS-COV-2 Immunization (1 - 2023- season) 2025 Colonoscopy Discontinued 01/11/2014 Colorectal Cancer Screening Discontinued DTaP/Tdap/Td Immunization Discontinued 10/23/2019 TdaP Immunization Completed 10/23/2019 Cologuard Discontinued Hepatitis B Immunization Aged Out No longer eligible based on patient's age to complete this topic Human Papillomavirus (HPV) Immunization Aged Out No longer eligible b ased [...] MEDICARE C [employer] on file Care Teams Retail Clerk Relationship Specialty Start Date End Date Milo Oden DO [address] [place] [address] PCP - General Internal Medicine 11/10/18
--- OUTSIDE RECORDS SUMMARY | 2025-01-08 16:03 | XMS_ITS | Clinical Summary ---
Author Organization [facility] [address] Address [address] [place] [address] Care Team Providers Care Accounts Receivable Coordinator Name Role Phone Milo Oden MD Primary Care Provider [phone] Sánchez Julian DO Unavailable [phone] Lev Diaz MD Unavailable [phone] Allergies Active Allergy Reactions Criticality Noted Date [...] 1 tablet (125 mcg total) by mouth early intervention specialist before breakfast Active lisinopriL (PRINIVIL,ZESTR [place]) 20 [...] (08/12/2022): Added automatically from request for surgery [id number] Angio-edema 08/02/2021 Enterocolitis 08/02/2021 Primary hypertension 08/02/2021 Medication reaction, initial encounter 2 Iron deficiency anemia due to chronic blood loss 07/30/2021 Gastric ulcer without hemorrhage or perforation 07/22/2021 Overview (08/27/2021): Added automatically from request for surgery [id number] Anemia 07/03/2021 Hypothyroidism 09/03/2020 Lumbosacral spondylosis without myelopathy 10/06 Other chronic pain 10/06/2018 Chronic right SI joint pain 10/06/2018 Low back pain 10/06/2018 Resolved Problems Problem Noted Date Diagnosed Date Resolved Date Gastric ulcer without hemorr enrique or perforation 07/22/2021 08/02/2021 Overview (07/22/2021): Added automatically from request for surgery [id number] Low back pain, non-specific 09/27/2018 08/02/2021 Surgical [...] on file 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 Gender Identity Not on file Sexual Orientation Not on file 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 file Not on file Not on file 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 Right: Shoulder [employer] [id number] 08/11/2028 508-32-20 4 / [id number] [employer] Screw Glenoid Locking Rsp 5.0x14mm Titanium 506-03-114 - [id number] Implanted:Qty : 1 on 11/10/2022 by Lev Diaz MD at [facility] Right: Shoulder [employer] [id number] 09/03/2028 506--11 4 [id number] [employer] Screw Glenoid Locking Rsp 5.0x26mm Titanium 506-03-126 - [id number] Implanted:Qty : 1 on 11/10/2022 by Lev Diaz MD at [facility] Right: Shoulder [employer] [id number] 08/31/2028 6 / / [id number] [employer] Screw Glenoid Locking Rsp 5.0x26mm Titanium 506-03-126 - [id number] Implanted:Qty : 1 on 11/10/2022 by Lev Diaz MD at [facility] Right: Shoulder [employer] [id number] 08/31/2028 506 6 / / [id number] [employer] Screw Glenoid Locking Rsp 5.0x14mm Titanium 506-03-114 - [id number] Implanted:Qty : 1 on 11/10/2022 by Lev Daiz MD at [facility] Right: Shoulder [employer] [id number] 09/03/2028 4 / / [id number] [employer] Head Humeral Shoulder Reverse Offset Rsp -4x32mm [place] [employer] 508-32-103 - [id number] Implanted:Qty : 1 on 11/10/2022 by Lev Diaz MD at [facility] Right: Shoulder [employer] [id number] 09/01/2028 508-32-10 3 / / [id number] [employer] Insert Humeral Reverse Small Neutral Altivate Reverse 32mm 509-02-032 - [id number] Implanted:Qty : 1 on 11/10/2022 by Lev Diaz MD at [facility] Right: Shoulder [employer] [id number] 05/26/2027 509-02-03 2 / / [id number] [employer] Stem Humeral Shoulder Reverse Altivate Reverse [id number] Titanium 533-08-108 - [id number] Implanted:Qty : 1 on 11/10/2022 by Lev Diaz MD at [facility] Right: Shoulder [employer] [id number] 09/03/2028 533-08-10 8 / / [id number] Insurance [facility] REF [facility] Address: [address] [address] [place] [address] [facility] REF [facility] Address: [facility] [address] [place] [address] [facility] MEDICARE ADVANTAGE [facility] Address: [facility] [address] [place] [address] Advance Directives For more information, please contact: [phone] * Full Code (Latest Code Status on [...] Agents on File Name Relationship Healthcare Agent [facility] p Communication Sánchez Xavier Spouse Health Care Agent Care Teams Accounts Receivable Coordinator Relationship Specialty Start Date End Date Milo Oden MD [address] [facility] [address] [place], [place] [address] PCP - General Internal Medicine 12/02/16 Sánchez Julian DO [address] [facility], [facility] [address] [place] [address] Medical Oncologist/Studio Grip Hematology and Oncology 07/02/21 Lev Diaz MD [address] [facility] [address] [place] [address] Consulting Physician Orthopedic Surgery 11/11/22
--- OUTSIDE RECORDS SUMMARY | 2025-01-08 16:04 | XMS_ITS | Patient Health Record ---
Author Organization [facility] [place] Address [address] [address] Care Team Providers Care Stringing Machine Operator Name Role Phone Nilesh Wheeler [phone] Allergies Allergen (clinical drug ingredient) Drug/Non Drug Allergy documented on EMR Reaction Allergy Type Onset Date Status morphine Morphine Sulfate rash Drug Allergy Active Nubain vomiting Drug Allergy Active Sulfacet-R vomiting Drug Allergy Active iron Iron anaphylaxis Drug Allergy Activ e Reason For Referral No Information Medications Medication SIG (Take, Route, Frequency, Duration) Notes Start Date End Date Status Alendronate Sodium 70 MG 1 tablet 30 minutes before the first food, beverage or medicine of the day with plain water Orally Once a day Active Levothyroxine Sodium 88 MCG 1 tablet on an empty stomach in the morning Orally Once a day Active Ondansetron HCl 4 MG as directed Orally PRN Active Methadone HCl 5 MG 1-2 tablet Orally Q6 hrs max 5/day; Duration: 30 days 12/14/2024 12/14/2024 Active Estradiol 1 MG 1 tablet Orally Once a day Not-Taking Methadone HCl 5 MG 1-2 tablet Orally one every 6 hrs max 5 a day; Duration: 30 days 11/14/2024 Active tiZANidine HCl 2 MG 1 tablet as needed Orally Three times a day; Duration: 30 days 12/15/2022 Not-Taking Triamcinolone Acetonide 0.1 % as directed Externally Twice a day Not-Taking Losartan Potassium 50 MG 1 tablet Orally Once a day Active Vitamin D Active Omeprazole 20 MG 1 capsule Orally Once a day Active Social History Tobacco Use: Social History Observation Description Date Details (start date - stop date) Never Smoker NA - NA Tobacco Use/Smoking Question Answer Notes Are you a nonsmoker Alcohol Screen (Audit-C) Question Answer Notes Did you have a drink containing alcohol in the p ast year? 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) Active confirmed Problem Lumbar post-laminectomy syndrome (269031988) Lumbar post-laminectomy syndrome (M96.1) Active confirmed Problem Arthritis of lumbosacral spine (018790976) Arthritis of lumbosacral spine (M47.817) Active confirmed Problem Bilateral sacroiliitis (9434621137) Bilateral sacroiliitis (M46.1) Active confirmed Problem Lumbar spinal stenosis (80386372) Lumbar foraminal stenosis (M48.061) Active confirmed Vital Signs Heart Rate 73 /min 11/14/2024 Temperature 97.7 degrees Fahrenheit 11/14/2024 Respiratory Rate 18 /min 11/14/2024 Blood pressure diastolic 85 mm Hg 11/14/2024 Height 62 in 11/14/2024 Blood pressure systolic 200 mm Hg 11/14/2024 Weight 120 lbs 11/14/2024 BMI 21.95 kg/m2 11/14/2024 Encounters Encounter Location Date Provider Diagnosis [address] [address] 02/29/2024 Nilesh Wheeler Lumbar post-laminect kaleb syndrome M96.1 ; Spondylosis without myelopathy or radiculopathy, 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 ; Arthritis of lumbosacral spine M47.817 and Bilateral sacroiliitis M46.[address] [address] 04/20/2024 Nilesh Wheeler Lumbar post-laminect kaleb syndrome M96.1 ; Spondylosis without myelopathy or radiculopathy, 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 ; Arthritis of lumbosacral spine M47.817 and Bilateral sacroiliitis M46.[address] [address] 07/04/2024 Nilesh Wheeler Lumbar post-laminect kaleb syndrome M96.1 ; Spondylosis without myelopathy or radiculopathy, 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 ; Arthritis of lumbosacral spine M47.817 ; Bilateral sacroiliitis M46.1 and Lumbar foraminal stenosis M48.[address] [address] 08/30/2024 Nilesh Wheeler Lumbar post-laminect kaleb syndrome M96.1 ; Spondylosis without myelopathy or radiculopathy, 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 ; Arthritis of lumbosacral spine M47.817 ; Bilateral sacroiliitis M46.1 and Lumbar foraminal stenosis M48.[address] [address] 11/14/2024 Nilesh Wheeler Lumbar post-laminect kaleb syndrome M96.1 ; Spondylosis without myelopathy or radiculopathy, 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 ; Arthritis of lumbosacral spine M47.817 ; Bilateral sacroiliitis M46.1 and Lumbar foraminal stenosis M48.061 [facility] [address] [facility] [place] [address] 02/29/2024 Nilesh Wheeler Lumbar post-laminect kaleb syndrome M96.1 Assessments Encounter Date Diagnosis (ICD Code) Assessment Notes Treatment Notes Treatment Clinical Notes Section Notes 02/29/2024 Lumbar post-laminectomy syndrome (ICD-10 - M96.1) 02/29/2024 Lumbar post-laminectomy syndrome (ICD-10 - M96.1) 04/20/2024 Lumbar post-laminectomy syndrome (ICD-10 - M96.1) 07/04/2024 Spondylosis without myelopathy or radiculopathy, 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) 07/04/2024 Lumbar post-laminectomy syndrome (ICD-10 - M96.1) 08/30/2024 Lumbar post-laminectomy syndrome (ICD-10 - M96.1) 11/14/2024 Lumbar post-laminectomy syndrome (ICD-10 - M96.1) 08/30/2024 Spondylosis without myelopathy or radiculopathy, 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) 11/14/2024 Spondylosis without myelopathy or radiculopathy, 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) 07/04/2024 Arthritis of lumbosacral spine (ICD-10 - M47.817) 04/20/2024 Spondylosis without myelopathy or radiculopathy, 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) 02/29/2024 Spondylosis without myelopathy or radiculopathy, 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) 02/29/2024 Arthritis of lumbosacral spine (ICD-10 - M47.817) 04/20/2024 Arthritis of lumbosacral spine (ICD-10 - M47.817) 07/04/2024 Bilateral sacroiliitis (ICD-10 - M46.1) 08/30/2024 Arthritis of lumbosacral spine (ICD-10 - M47.817) 11/14/2024 Arthritis of lumbosacral spine (ICD-10 - M47.817) 11/14/2024 Bilateral sacroiliitis (ICD-10 - M46.1) 08/30/2024 Bilateral sacroiliitis (ICD-10 - M46.1) 07/04/2024 Lumbar foraminal stenosis (ICD-10 - M48.061) 04/20/2024 Bilateral sacroiliitis (ICD-10 - M46.1) 02/29/2024 Bilateral sacroiliitis (ICD-10 - M46.1) 08/30/2024 Lumbar foraminal stenosis (ICD-10 - M48.061) 11/14/2024 Lumbar foraminal stenosis (ICD-10 - M48.061) 02/29/2024 Other Plan: 1. At this point [...] for this patient are currently being met. 11/14/2024 Other Plan: 1. At this point we [...] for this patient are currently being met. Plan Of Treatment Next Appt Details Provider Name:Nilesh Jansen idt, 01/11/2025 10:30:00 AM, [address], [place], [address], Insurance Providers Payer Name Payer Address Payer Phone Subscriber Number Group Number Insured Name Patient Relationship to Insured Coverage Start Date Coverage End Date MEDICARE SERVICES [address] [address] [place], [place] [id number] Saray Mayorga Self - patient is the insured [employer]. [address] [place] [address] [id number] Saray Mayorga Self - patient is the insured Medications Administered Medication Instructions Date of Administration Dosage Notes [...] Right S1 Selective Epidural Steroid Injection 05/12/2022 Medical (General) History Medical History History ICD Code hypertension thyroid disease Surgical History Surgery Date(Month/Year) hysterectomy cholecystectomy rotator cuff tear repair Back tonsillectomy Cervical disc trigger finger right shoulder replacement 11/10/22 back surgery 01/05/2024 Hospitalization History Reason Date(Month/Year) icu due to iron infusion issues 08/2021
--- OUTSIDE RECORDS SUMMARY | 2025-01-08 16:04 | XMS_ITS | Encounter Summary ---
Author Organization [employer] Address 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
--- OUTSIDE RECORDS SUMMARY | 2025-01-08 16:04 | XMS_ITS | Encounter Summary ---
Author Organization [facility] Care Team Providers Care Set Up And Charger Name Role Phone Milo Oden MD Primary Care Provider [phone] Sánchez Julian DO Unavailable [phone] Lev Diaz MD Unavailable [phone] Encounter Details Date Type Department Care Team (Latest Contact Info) Description 11/05/2017 Orders Only [facility] ProviderTaran MD [address] [place] [address] Social History Tobacco Use Types Packs/Day Years Used Date Smoking Tobacco: Never Assessed Comments Unknown Sex and Gender Information Value Date Recorded Sex Assigned at Not on file Legal Sex Female 5:05 AM OFFICE SUPPORT SPECIALIST Gender Identity Not on file Sexual [...] on filedocumented in this encounter Care Teams Set Up And Charger Relationship Specialty Start Date End Date Milo Oden MD [address] [facility] [address] [place] [address] PCP - General Internal Medicine 12/02/16 Sánchez Julian DO [address] [place] [address] MEDICAL ONCOLOGY, [address] [address] Medical Oncologist/Diesel Engine Mechanic Hematology and Oncology 07/02/21 Lev Diaz MD [address] [facility] [address] [place] [address] Consulting Physician Orthopedic Surgery 11/11/22 documented as of this encounter
--- OUTSIDE RECORDS SUMMARY | 2025-01-08 16:04 | XMS_ITS | Clinical Summary ---
Author Organization [facility] Address [address] [place] [address] Care Team Providers Care Nail Cutter Name Role Phone Milo Oden Primary Care Provider Source Comments [facility],non-owned Affiliates and Associated Physician Practices is amultiple site organization consisting of ambulatory clinics and hospital sitesin [place], [place]. This disclosure is being madepursuant to the Care Everywhere program and may not contain all information available regarding this patient. Last updated 18.[facility] Allergies Active Allergy Reactions Criticality Noted Date [...] needed for Heartburn. Active vitamin D2 (ERGOCALCIFEROL) 53130 UNIT capsule Take 1 Cap by mouth [...] on file Legal Sex Female 6:13 AM MANAGER OF MANUFACTURING Gender Identity Not on file Sexual Orientation Not on file Last Filed Vital Signs Vital Sign Reading Time Taken Comments Blood Pressure 105/55 04/04/2009 2:00 PM MANAGER OF MANUFACTURING Pulse 59 04/04/2009 2:00 PM MANAGER OF MANUFACTURING Temperature 37.2 C (98.9 F) 04/04/2009 2:00 PM MANAGER OF MANUFACTURING Respiratory Rate 16 04/04/2009 2:00 PM MANAGER OF MANUFACTURING Oxygen Saturation 99% 04/04/2009 2:00 PM MANAGER OF MANUFACTURING Inhaled Oxygen Concentration - - Weight 54.4 kg (120 lb) 04/02/2009 12:19 PM MANAGER OF MANUFACTURING Height 157.5 cm (5' 2) 04/02/2009 12:19 PM MANAGER OF MANUFACTURING Body Mass Index 21.95 04/02/2009 12:19 PM MANAGER OF MANUFACTURING Plan of Treatment Health Maintenance Due Date Last Done Comments BONE DENSITY TESTING 1945 HEPATITIS C SCREENING 10/26/1964 DTAP/TDAP/TD VACCINES (1 - Tdap) 1965 PNEUMOCOCCAL VACCINE 50+ (1 of 1 - PCV) 1996 ZOSTER VACCINE (1 of 2) 1996 Respiratory Syncytial Virus (RSV) Vaccine Pt: or over 60 yrs (1 - 1-dose 75+ series) 2021 DEPRESSION SCREENING 05/03/2024 COVID-19 VACCINE (1 - 4-2 5 season) 2025 INFLUENZA VACCINE (#1) 2025 HEPATITIS B VACCINE Aged Out No [...] complete this topic Insurance MEDICARE Care Teams Nail Cutter Relationship Specialty Start Date End Date Milo Oden DO [address] [place] [address] PCP - General 02/22/19
--- OUTSIDE RECORDS SUMMARY | 2025-01-08 16:04 | XMS_ITS | Clinical Summary ---
Author Organization [facility] Nasim Burgess Address [address] [place] [address] Care Team Providers Care Safe And Vault Mechanic Name Role Phone Unavailable Primary Care Provider [...] meals. Active L gasseri/B bifidum/B longum ([employer] HEALTH ORAL) Take by mouth daily. Active [...] Encounters Date Type Department Care Team Description 01/03/2025 External Device Data [facility] ABSTRACTION Provider, Abstract 12/19/2024 External Device Data [facility] ABSTRACTION Provider, Abstract 12/06/2024 External Device Data [facility] ABSTRACTION Provider, Abstract 11/15/2024 External Device Data [facility] ABSTRACTION Provider, Abstract 11/15/2024 External Device Data [facility] ABSTRACTION Provider, Abstract 11/15/2024 External Device Data [facility] ABSTRACTION Provider, Abstract 10/18/2024 External Device Data [facility] ABSTRACTION Provider, Abstract [...] on file Legal Sex Female 3:30 AM CRA Gender Identity Not on file Sexual Orientation [...] 6:12 AM CDT Height 157.5 cm (5' 2) 01/05/2024 6:12 AM CDT Body Mass Index 26.34 01/05/2024 6:12 AM CDT Plan of Treatment Health Maintenance Due Date Last Done Comments DTAP/TDAP/TD VACCINES (1 - Tdap) 1965 ZOSTER VACCINE (1 of 2) 1996 RSV VACCINE (60+ or ) (1 - 1-dose 75+ series) 2021 PNEUMOCOCCAL VACCINE 50+ YEARS (2 of 2 - PCV) 12/02/19 23 12/01/2021 INFLUENZA VACCINE (#1) 2024 OSTEOPOROSIS SCREENING 10/28/2028 10/29/2023 COLORECTAL SCREENING Discontinued 01/11/2014 Colorectal Cancer Screening Discontinued FIT-DNA Q 3 years Discontinued FIT/FOBT Q 1 year Discontinued Flex Sig/CT Colonography Q 5 years Discontinued Medical Devices Implanted Type Area Purchasing Specialist Device Identifier Shelf Expiration Date Model / Serial / Lot Hemostatic Surgiflo 8ml W/ Thrombin 2994 - [id number] Implanted:Qty: 1 on 01/05/2024 by Chemo Cook MD at [facility] Hemostatic N/A: Spine Lumbar [employer] 08/30/2024 2994 / / [id number] Set Screw Implanted:Qty: 6 on 01/05/2024 by Chemo Cook MD at [facility] Other N/A: Spine Lumbar [employer] / / Description:1X ADD JM Influx Proteios Large Implanted:Qty: 1 on 01/05/2024 by Chemo Cook MD at [facility] Other N/A: Spine Lumbar [employer] 09/13/2028 [id number]-GF-[id number] 0 / / [id number] Description:1X ADD JM AVE TO FOLLOW-RDJ Body Top Loading Implanted:Qty: 6 on 01/05/2024 by Chemo Cook MD at [facility] Other N/A: Spine Lumbar [employer] 36-2101 / / Description:1X ADD NELY Putty Graft I-Factor Peptide Enhanced 5.0ml Syr 700-050 - [id number] Implanted:Qty: 1 on 01/05/2024 by Chemo Cook MD at [facility] Putty N/A: Spine Lumbar [employer] 03/02/2026 700-050 / / [id number] Eric Frbrd Crv Ti 5.5x55mm [id number] - [id number] Implanted:Qty: 2 on 01/05/2024 by Chemo Cook MD at [facility] Eric N/A: Spine Lumbar [employer] 52-6055 / / Screw Implanted:Qty: 2 on 01/05/2024 by Chemo Cook MD at [facility] Screw N/A: Spine Lumbar [employer] 44-5745 / / Description:1X ADD JM Screw Frbrd St 6.5x45mm 44-5645 - [id number] Implanted:Qty: 4 on 01/05/2024 by Chemo Cook MD at [facility] Screw N/A: Spine Lumbar [employer] 44-5645 / / Description:1X ADD NELY Putty Allofuse+ Dbm 5ml [id number] - [id number] Implanted:Qty: 1 on 01/05/2024 by Chemo Cook MD at [facility] Tissue N/A: Spine Lumbar [employer] 03/09/2025 [id number] / / [id number] 1 Description:SHANIA [id number] DJ Bone Canc Crushed 30ml [id number] - [id number] Implanted:Qty: 1 on 01/05/2024 by Chemo Cook MD at [facility] Tissue N/A: Spine Lumbar [employer] [id number] 02/14/2028 [id number] / [id number] / Description:[id number] Right Shoulder Replacement Explanted Type Area Purchasing Specialist Device Identifier Shelf Expiration Date Model / Serial / Lot Lumbar Hardware Explanted:Qty: 1 on 01/05/2024 by Chemo Cook MD at [facility] Description:Six screws; Two rods; Six set screws [...] refer to the full report available in [facility] under the PACS Images tab. If a faxed copy is needed, please call [phone]. DICTATION LOCATION: [facility] Narrative 10/29/2023 2:29 PM CDT SUMMARY DEXA [...] refer to the full report available in [facility] under the PACS Images tab. If a faxed copy is needed, please call [phone]. DICTATION LOCATION: [facility] Chemo Cook MD DIAGNOSTIC IMAGING ORDERABLES Final Result from Last 3 Months or Most Recently Relevant to Health Maintenance Insurance RX [employer] RX Member Subscriber Plan / Payer (Ef fective 2020-Present) Name:Saray Park Relation to Subscriber:Self Name:Saray Park Payer ID:Not on file Group ID:[id number] Type:RX Medicare Part D Address: [address] Advance Directives For more information, please contact: [phone] * Full Code (Latest Code Status on File) Date Activated Date Inactivated Comments 01/05/2024 2:42 PM 01/09/2024 8:37 PM
--- OUTSIDE RECORDS SUMMARY | 2025-01-08 16:04 | XMS_ITS | Encounter Summary ---
Author Organization [employer] Address 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
== END 2025-01-08 15:59 | disposition home or self-care (01) ==
PROVIDERS: PCP Internal Medicine; Visit Provider Internal Medicine
DX: R06.2 Wheezing (principal); M79.89 Other specified soft tissue disorders
CPT/HCPCS: 71046; 93970

== ENCOUNTER 2025-01-22 10:38 | Outpatient (CLI) | payer MEDICARE, SELFPAY ==
--- OUTSIDE RECORDS SUMMARY | 2024-10-30 05:30 | XMS_ITS ---
Author Organization [facility] Address [address] [place] [address] Care Team Providers Care Engraver Copperplate Name Role Phone Nilesh Wheeler [phone] REASON FOR VISIT *f/u poss inj Encounters Encounter Location Date Provider Diagnosis [address] [place] [address] 10/30/2024 Nilesh Wheeler Plan Of Treatment Next Appt Details Provider Name:Nilesh Jansen idt, 03/21/2025 10:30:00 AM, [address], [address], [place], [address], Progress Notes * Saray BHAGAT DDOB:0 1945 (79 yo F)Acc No.[id number]:10/30/2024 Progress Notes Patient: Gerson Saray ORO Provider: Marshall Wheeler MD :1945 A ge:78 Y S ex:Female Date:10/30/2024 Address:[address] Subjective: * Chief Complaints: * 1 . *f/u poss inj. * Medical History: Objective: * Vitals: Assessment: Plan: * Treatment: * * Electronic signature of Elmo Wheeler MD on 01/22/2025 at 12:47 PM EDT Sign off status: Pending * Provider: Marshall Wheeler MD Date: 0 10/30/2024 Generated for Luz Elena howe/Shaye/eTransmitting on: 0 01/22/2025 12:47 PM EDT
--- NOTE | ~2025-01-22 | US_ITS ---
Clinical History: I65.29 - Occlusion and stenosis of unspecified carotid ar... Examination: US carotid duplex BI Comparison: Carotid duplex 10/07/2023 Technique: Grayscale, color, duplex/spectral Doppler sonography carotid and vertebral arteries. Distal CCA and Peak ICA systolic velocities provided. Society of Radiologists in Ultrasound (SRU) consensus criteria utilized, indirectly assessing stenosis by velocities. Findings: Scattered plaque with dense plaque at bulbs. Right side: CCA - 64 cm/sec. ICA - 124 cm/sec. ICA/CCA - 1.9 Left Side: CCA - 81 cm/sec. ICA - 115 cm/sec. ICA/CCA - 1.4 Normal antegrade flow measured bilateral vertebral arteries. IMPRESSION: 1. Right ICA velocity just fails to meet criteria for 50-69% stenosis; 50-69% stenosis was present previously. 2. No hemodynamically significant ICA stenosis left ICA (i.e., if any stenosis, less than 50%). 3. Normal bilateral antegrade vertebral artery flow. Stenosis measured by Society of Radiologists in Ultrasound (SRU) criteria. Reviewed, dictated and finalized at location R. IMPRESSION: 1. Right ICA velocity just fails to meet criteria for 50-69% stenosis; 50-69% stenosis was present previously. 2. No hemodynamically significant ICA stenosis left ICA (i.e., if any stenosis , less than 50%). 3. Normal bilateral antegrade vertebral artery flow. Stenosis measured by Society of Radiologists in Ultrasound (SRU) criteria.
--- OUTSIDE RECORDS SUMMARY | 2025-01-22 11:47 | XMS_ITS | Patient Health Record ---
Author Organization [facility] [place] Address [address] [place] [address] Care Team Providers Care Wood Drilling Machine Operator Name Role Phone Nilesh Wheeler [phone] Allergies Allergen (clinical drug ingredient) Drug/Non Drug Allergy documented on EMR Reaction Allergy Type Onset Date Status morphine Morphine Sulfate rash Drug Allergy Active Nubain vomiting Drug Allergy Active Sulfacet-R vomiting Drug Allergy Active iron Iron anaphylaxis Drug Allergy Activ e Reason For Referral No Information Medications Medication SIG (Take, Route, Frequency, Duration) Notes Start Date End Date Status Ondansetron HCl 4 MG as directed Orally PRN Active Alendronate Sodium 70 MG 1 tablet 30 minutes before the first food, beverage or medicine of the day with plain water Orally Once a day Active Levothyroxine Sodium 88 MCG 1 tablet on an empty stomach in the morning Orally Once a day Active Triamcinolone Acetonide 0.1 % as directed Externally Twice a day Not-Taking Estradiol 1 MG 1 tablet Orally Once a day Not-Taking Methadone HCl 5 MG 1-2 tablet Orally Q6 hrs max 5/day; Duration: 30 days 02/16/2025 02/16/2025 Active Methadone HCl 5 MG 1-2 tablet Orally one every 6 hrs max 5 a day; Duration: 30 days 01/17/2025 Active Omeprazole 20 MG 1 capsule Orally Once a day Active Losartan Potassium 50 MG 1 tablet Orally Once a day Active Vitamin D Active tiZANidine HCl 2 MG 1 tablet as needed Orally Three times a day; Duration: 30 days 12/15/2022 Not-Taking Social History Tobacco Use: Social History Observation [...] Risk Notes Problem Cervical spondylosis without myelopathy (383533402) Spondylosis without myelopathy or radiculopathy, cervicothoracic region (M47.813) Active confirmed Problem Lumbar post-laminectomy syndrome (485709787) Lumbar post-laminectomy syndrome (M96.1) Active confirmed Problem Arthritis of lumbosacral spine (269206662) Arthritis of lumbosacral spine (M47.817) Active confirmed Problem Bilateral sacroiliitis (4919370961) Bilateral sacroiliitis (M46.1) Active confirmed Problem Lumbar spinal stenosis (74768774) Lumbar foraminal stenosis (M48.061) Active confirmed Vital Signs Heart Rate 65 /min 01/17/2025 Temperature 97.6 degrees Fahrenheit 01/17/2025 Respiratory Rate 18 /min 01/17/2025 Blood pressure diastolic 65 mm Hg 01/17/2025 Height 62 in 01/17/2025 Blood pressure systolic 165 mm Hg 01/17/2025 Weight 120 lbs 01/17/2025 BMI 21.95 kg/m2 01/17/2025 Encounters Encounter Location Date Provider Diagnosis [address] [address] 02/29/2024 Nilesh Wheeler Lumbar post-laminect kaleb syndrome M96.1 ; Spondylosis without myelopathy or radiculopathy, 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 ; Arthritis of lumbosacral spine M47.817 and Bilateral sacroiliitis M46.[address] [address] 04/20/2024 Nilesh Wheeler Lumbar post-laminect kaleb syndrome M96.1 ; Spondylosis without myelopathy or radiculopathy, 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 ; Arthritis of lumbosacral spine M47.817 and Bilateral sacroiliitis M46.[address] [address] 07/04/2024 Nilesh Wheeler Lumbar post-laminect kaleb syndrome M96.1 ; Spondylosis without myelopathy or radiculopathy, 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 ; Arthritis of lumbosacral spine M47.817 ; Bilateral sacroiliitis M46.1 and Lumbar foraminal stenosis M48.[address] [address] 08/30/2024 Nilesh Wheeler Lumbar post-laminect kaleb syndrome M96.1 ; Spondylosis without myelopathy or radiculopathy, 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 ; Arthritis of lumbosacral spine M47.817 ; Bilateral sacroiliitis M46.1 and Lumbar foraminal stenosis M48.[address] [address] 11/14/2024 Nilesh Wheeler Lumbar post-laminect kaleb syndrome M96.1 ; Spondylosis without myelopathy or radiculopathy, 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 ; Arthritis of lumbosacral spine M47.817 ; Bilateral sacroiliitis M46.1 and Lumbar foraminal stenosis M48.[address] [address] 01/17/2025 Nilesh Wheeler Lumbar post-laminect kaleb syndrome M96.1 ; Spondylosis without myelopathy or radiculopathy, 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 ; Arthritis of lumbosacral spine M47.817 ; Bilateral sacroiliitis M46.1 and Lumbar foraminal stenosis M48.061 [facility] [address] [place] [address] 02/29/2024 Nilesh Wheeler Lumbar post-laminect kaleb syndrome [...] 11/14/2024 Lumbar post-laminectomy syndrome (ICD-10 - M96.1) 01/17/2025 Lumbar post-laminectomy syndrome (ICD-10 - M96.1) 08/30/2024 Spondylosis without myelopathy or radiculopathy, 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) 11/14/2024 Spondylosis without myelopathy or radiculopathy, 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) 01/17/2025 Spondylosis without myelopathy or radiculopathy, cervicothoracic region [...] Arthritis of lumbosacral spine (ICD-10 - M47.817) 01/17/2025 Arthritis of lumbosacral spine (ICD-10 - M47.817) 11/14/2024 Arthritis of lumbosacral spine (ICD-10 - M47.817) 11/14/2024 Bilateral sacroiliitis (ICD-10 - M46.1) 01/17/2025 Bilateral sacroiliitis (ICD-10 - M46.1) 08/30/2024 Bilateral sacroiliitis (ICD-10 - M46.1) 07/04/2024 Lumbar foraminal stenosis (ICD-10 - M48.061) 04/20/2024 Bilateral sacroiliitis (ICD-10 - M46.1) 02/29/2024 Bilateral sacroiliitis (ICD-10 - M46.1) 08/30/2024 Lumbar foraminal stenosis (ICD-10 - M48.061) 01/17/2025 Lumbar foraminal stenosis (ICD-10 - M48.061) 11/14/2024 [...] for this patient are currently being met. 01/17/2025 Other Plan: 1. At this point we [...] Of Treatment Next Appt Details Provider Name:Nilesh Michela Jansen idt, 03/21/2025 10:30:00 AM, [address], [address], [place], [address], Insurance Providers Payer Name Payer Address Payer Phone Subscriber Number Group Number Insured Name Patient Relationship to Insured Coverage Start Date Coverage End Date MEDICARE SERVICES [address] [address] [place], [place] [id number] Saray Mayorga Self - patient is the insured [employer]. [address] [place] [address] [id number] Saray Mayorga Self - patient is [...]
--- OUTSIDE RECORDS SUMMARY | 2025-01-22 11:47 | XMS_ITS | Encounter Summary ---
Author Organization [employer] Address 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
--- OUTSIDE RECORDS SUMMARY | 2025-01-22 11:47 | XMS_ITS | Encounter Summary ---
Author Organization [employer] Address 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
--- OUTSIDE RECORDS SUMMARY | 2025-01-22 11:47 | XMS_ITS | Clinical Summary ---
Author Organization [facility] [address] Address [address] [place] [address] Care Team Providers Care Talent Analyst Name Role Phone Milo Oden MD Primary Care Provider [phone] Sánchez Julian DO Unavailable [phone] Lev Diaz MD Unavailable [phone] Allergies Active Allergy Reactions Criticality Noted Date [...] 1 tablet (125 mcg total) by mouth software development engineer before breakfast Active lisinopriL (PRINIVIL,ZESTR [place]) 20 [...] (08/12/2022): Added automatically from request for surgery [id number] Angio-edema 08/02/2021 Enterocolitis 08/02/2021 Primary hypertension 08/02/2021 Medication reaction, initial encounter 2 Iron deficiency anemia due to chronic blood loss 07/30/2021 Gastric ulcer without hemorrhage or perforation 07/22/2021 Overview (08/27/2021): Added automatically from request for surgery [id number] Anemia 07/03/2021 Hypothyroidism 09/03/2020 Lumbosacral spondylosis without myelopathy 10/06 Other chronic pain 10/06/2018 Chronic right SI joint pain 10/06/2018 Low back pain 10/06/2018 Resolved Problems Problem Noted Date Diagnosed Date Resolved Date Gastric ulcer without hemorr enrique or perforation 07/22/2021 08/02/2021 Overview (07/22/2021): Added automatically from request for surgery [id number] Low back pain, non-specific 09/27/2018 08/02/2021 Surgical [...] on file Legal Sex Female 5:05 AM 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 Gender Identity Not on file Sexual Orientation Not on file 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 Not on file Not on file 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 Not on file Not on file Not [...] as needed Medical Devices Implanted Type Area Litigation Paralegal Device Identifier Shelf Expiration Date Model / Serial / Lot Pin Pin Right: Back Description:And right leg [employer] Baseplate Glenoid Rsp 30mm Titanium 508-32-204 - [id number] Implanted:Qty : 1 on 11/10/2022 by Lev Diaz MD at [facility] Right: Shoulder [employer] [id number] 08/11/2028 508-32-20 4 / [id number] [employer] Screw Glenoid Locking Rsp 5.0x14mm Titanium 506-03-114 - [id number] Implanted:Qty : 1 on 11/10/2022 by Lev Diaz MD at [facility] Right: Shoulder [employer] [id number] 09/03/2028 506--11 4 [id number] [employer] Screw Glenoid Locking Rsp 5.0x26mm Titanium 506-03-126 - [id number] Implanted:Qty : 1 on 11/10/2022 by Lev Diaz MD at [facility] Right: Shoulder [employer] [id number] 08/31/2028 6 / / [id number] [employer] Screw Glenoid Locking Rsp 5.0x26mm Titanium 506-03-126 - [id number] Implanted:Qty : 1 on 11/10/2022 by Lev Diaz MD at [facility] Right: Shoulder [employer] [id number] 08/31/2028 506 6 / / [id number] [employer] Screw Glenoid Locking Rsp 5.0x14mm Titanium 506-03-114 - [id number] Implanted:Qty : 1 on 11/10/2022 by Lev Diaz MD at [facility] Right: Shoulder [employer] [id number] 09/03/2028 4 / / [id number] [employer] Head Humeral Shoulder Reverse Offset Rsp -4x32mm Boissevain Chromium 508-32-103 - [id number] Implanted:Qty : 1 on 11/10/2022 by Lev Diaz MD at [facility] Right: Shoulder [employer] [id number] 09/01/2028 508-32-10 3 / / [id number] [employer] Insert Humeral Reverse Small Neutral Altivate Reverse 32mm 509-02-032 - [id number] Implanted:Qty : 1 on 11/10/2022 by Lev Diaz MD at [facility] Right: Shoulder [employer] [id number] 05/26/2027 509-02-03 2 / / [id number] [employer] Stem Humeral Shoulder Reverse Altivate Reverse [id number] Titanium 533-08-108 - [id number] Implanted:Qty : 1 on 11/10/2022 by Lev Diaz MD at [facility] Right: Shoulder [employer] [id number] 09/03/2028 533-08-10 8 / / [id number] Insurance [facility] H[facility] REF [facility] REF [facility] MEDICARE ADVANTAGE Advance Directives For more information, please contact: [phone] * Full Code (Latest Code Status on [...] Agents on File Name Relationship Healthcare Agent [facility] p Communication Sánchez Xavier Spouse Health Care Agent Care Teams Talent Analyst Relationship Specialty Start Date End Date Milo Oden MD [address] [facility] [address] [place], [place] [id number] PCP - General Internal Medicine 12/02/16 Sánchez Julian DO [address] [facility], [facility] [address] [place] [address] Medical Oncologist/Vat Washer Hematology and Oncology 07/02/21 Lev Diaz MD [address] [facility] [address] [place] [address] Consulting Physician Orthopedic Surgery 11/11/22
--- OUTSIDE RECORDS SUMMARY | 2025-01-22 11:47 | XMS_ITS | Encounter Summary ---
Author Organization [facility] Care Team Providers Care Aircraft Manager Name Role Phone Milo Oden MD Primary Care Provider [phone] Sánchez Julian DO Unavailable [phone] Lev Diaz MD Unavailable [phone] Encounter Details Date Type Department Care Team (Latest Contact Info) Description 11/05/2017 Orders Only [facility] ProviderTaran MD [address] [place] [address] Social History Tobacco Use Types Packs/Day Years Used Date Smoking Tobacco: Never Assessed Comments Unknown Sex and Gender Information Value Date Recorded Sex Assigned at Not on file Legal Sex Female 5:05 AM POURER Gender Identity Not on file Sexual Orientation [...] on filedocumented in this encounter Care Teams Aircraft Manager Relationship Specialty Start Date End Date Milo Oden MD [address] [facility] [address] [place] [address] PCP - General Internal Medicine 12/02/16 Sánchez Julian DO [address] [place] [address] MEDICAL ONCOLOGY, [address] [address] Medical Oncologist/Mechanical Energy Engineer Hematology and Oncology 07/02/21 Lev Diaz MD [address] [facility] [address] [address] [place] [address] Consulting Physician Orthopedic Surgery 11/11/22 documented as of this encounter
--- OUTSIDE RECORDS SUMMARY | 2025-01-22 11:47 | XMS_ITS | Clinical Summary ---
Author Organization [facility] Nasim Burgess Address [address] [place] [address] Care Team Providers Care Fiber Locking Supervisor Name Role Phone Unavailable Primary Care Provider [...] meals. Active L gasseri/B bifidum/B longum ([employer] [place] [facility]) Take by mouth daily. 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 Gender Identity Not on file Sexual [...] years Discontinued Medical Devices Implanted Type Area Professor Of Theater Device Identifier Shelf Expiration Date Model / Serial / Lot Hemostatic Surgiflo 8ml W/ Thrombin 2994 - [id number] Implanted:Qty: 1 on 01/05/2024 by Chemo Cook MD at [facility] Hemostatic N/A: Spine Lumbar [employer] 08/30/2024 2994 / / [id number] Set Screw Implanted:Qty: 6 on 01/05/2024 by Chemo Cook MD at [facility] Other N/A: Spine Lumbar [employer] INC -2000 / / Description:1X ADD NELY Influx Proteios Large Implanted:Qty: 1 on 01/05/2024 by Chemo Cook MD at [facility] Other N/A: Spine Lumbar [employer] 09/13/2028 IFLX-GF-05 0 / / [id number] Description:1X ADD J[address] TO FOLLOW-RDJ Body Top Loading Implanted:Qty: 6 on 01/05/2024 by Chemo Cook MD at [facility] Other N/A: Spine Lumbar [employer] 36-2101 / / Description:1X ADD JM Putty Graft I-Factor Peptide Enhanced 5.0ml Syr 700-050 - [id number] Implanted:Qty: 1 on 01/05/2024 by Chemo Cook MD at [facility] Putty N/A: Spine Lumbar [employer] 03/02/2026 700-050 / / [id number] Eric Frbrd Crv Ti 5.5x55mm [id number] - [id number] Implanted:Qty: 2 on 01/05/2024 by Chemo Cook MD at [facility] Eric N/A: Spine Lumbar [employer] 52-6055 / / Screw Implanted:Qty: 2 on 01/05/2024 by Chemo Cook MD at [facility] Screw N/A: Spine Lumbar [employer] 44-5745 / / Description:1X ADD JM Screw Frbrd St 6.5x45mm 44-5645 - [id number] Implanted:Qty: 4 on 01/05/2024 by Chemo Cook MD at [facility] Screw N/A: Spine Lumbar [employer] 445645 / / Description:1X ADD NELY Putty Allofuse+ Dbm 5ml [id number] - [id number] Implanted:Qty: 1 on 01/05/2024 by Chemo Cook MD at [facility] Tissue N/A: Spine Lumbar [employer] 03/09/2025 [id number] / / [id number] 1 Description:BR REQ#[id number] Bone Canc Crushed 30ml [id number] - [id number] Implanted:Qty: 1 on 01/05/2024 by Chemo Cook MD at [facility] Tissue N/A: Spine Lumbar [employer] [id number] 02/14/2028 [id number] / [id number] / Description:REQ#[id number] Right Shoulder Replacement Explanted Type Area Professor Of Theater Device Identifier Shelf Expiration Date Model / Serial / Lot Lumbar Hardware Explanted:Qty: 1 on 01/05/2024 by Chemo Cook MD at [facility] Description:Six screws; Two rods; Six set screws [...] refer to the full report available in [facility] under the PACS Images tab. If a faxed copy is needed, please call [phone]. DICTATION LOCATION: [facility] Narrative 10/29/2023 2:29 PM CDT SUMMARY DEXA [...] refer to the full report available in [facility] under the PACS Images tab. If a faxed copy is needed, please call [phone]. DICTATION LOCATION: [facility] Chemo Cook MD DIAGNOSTIC IMAGING ORDERABLES Final Result from Last 3 Months or Most Recently Relevant to Health Maintenance Insurance RX [employer] RX Member Subscriber Plan / Payer (Ef fective 2020-Present) Name:Saray Park Relation to Subscriber:Self Name:Saray Park Payer ID:Not on file Group ID:[id number] Type:RX Medicare Part D Address: [address] Advance Directives For more information, please contact: [phone] * Full Code (Latest Code Status on File) Date Activated Date Inactivated Comments 01/05/2024 2:42 PM 01/09/2024 8:37 PM
--- OUTSIDE RECORDS SUMMARY | 2025-01-22 11:47 | XMS_ITS | Clinical Summary ---
Author Organization [facility] Address [address] [place] [address] Phone Care Team Providers Care Computer Equipment Repairer Name Role Phone DaphneyMilo sepulveda Prema WHALEN Primary Care Provider [phone] Allergies Active Allergy Reactions Criticality Noted Date [...] MEDICARE C [employer] on file Care Teams Computer Equipment Repairer Relationship Specialty Start Date End Date Milo Oden DO [address] [place] [address] PCP - General Internal Medicine 11/10/18
== END 2025-01-22 10:39 | disposition home or self-care (01) ==
PROVIDERS: PCP Internal Medicine; Visit Provider Internal Medicine Cardiovascular Disease
DX: I65.21 Occlusion and stenosis of right carotid artery (principal)
CPT/HCPCS: 93880

== ENCOUNTER 2025-02-02 15:27 | Outpatient (CLI) | payer MEDICARE, SELFPAY ==
--- OUTSIDE RECORDS SUMMARY | 2024-10-30 05:30 | XMS_ITS ---
Author Organization [facility] Address [address] [place] [address] Care Team Providers Care Instant Print Operator Name Role Phone Nilesh Wheeler [phone] REASON FOR VISIT *f/u poss inj Encounters Encounter Location Date Provider Diagnosis [facility] [address] [place] [address] [address] [place] [address] 10/30/2024 Nilesh Wheeler Plan Of Treatment Next Appt Details Provider Name:Nilesh Jansen idt, 03/21/2025 10:30:00 AM, [address], [address], [place], [address], Progress Notes * Saray BHAGAT DDOB:0 1945 (79 yo F)Acc No.[id number]:10/30/2024 Progress Notes Patient: Gerson POOLSaray GLSAGOW Account Number:[id number] Provider: Marshall Wheeler MD :1945 A ge:78 Y S ex:Female Date:10/30/2024 Address[address] Subjective: * Chief Complaints: * 1 . *f/u poss inj. * Medical History: Objective: * Vitals: Assessment: Plan: * Treatment: * * Electronic signature of Elmo Wheeler MD on 02/02/2025 at 04:31 PM EDT Sign off status: Pending * Provider: Marshall Wheeler MD Date: 0 10/30/2024 Generated for Printi ng/Faxing/eTransmitting on: 1 04:31 PM EDT
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
--- OUTSIDE RECORDS SUMMARY | 2025-02-02 15:31 | XMS_ITS | Data Portability ---
Author Organization [place] [facility], [place] Address [address] [place] [place] [address] Care Team Providers Care Spearer Name Role Phone SMITHA BARON Primary Care Provider [phone] Assessment Encounter Date Assessment Date Assessment LastModified by Organization Details LastModified Time 09/03/2020 09/03/2020 healthy female exam/menopaus e pap- none further- hyst mammogram ordered and encouraged colonoscopy- seeing GI wednesday dexa ordered and encouraged alendronate and vit D refilled. Encouraged weight bearing exercise and 1500mg daily of Calcium with Vitamin D FU 1 year or prn [email or web address] Not available 09/03/2020 16:54:54 Plan of Treatment Reminders Order Date Submit Date Provider Last Modified By Organization Details Last Modified Time Details Appointments None recorded . Lab None recorded . Referral None recorded . Procedures None recorded . Surgeries None recorded . Imaging US, breast, unilater al - right breast pain [address] [facility], [address], [address], [place], [address], 10:23:43 Medication Orders alendron ate 70 mg tablet 2020 021 [facility] #[id number], [address] [facility], [place], [place], [id number], 14:08:46 Vitamin D2 1,250 mcg (50,000 unit) capsule 2020 021 [facility] #[id number], [address] [facility], [place], [place], [id number], 3 14:08:58 Patient TargetsNo targets recorded. Patient InstructionsNo instructions recorded. Reason for Referral None Reported. Problems Name Problem SNOMED Code Status Onset Date Resolution Date Notes Provider Name and Address Organization Details Recorded Time Essential hypertension 99400392 Active 2020 Brooke Suarez MD [address], [place], [address], [facility] 14:47:20 Hypothyroidi sm 72450963 Active 2020 Brooke Suarez MD [address], [place], [address], [facility] 14:47:29 History of hysterectomy 157465703 Active 2020 Brooke Suarez MD [address], [place], [address], [facility] 14:47:37 Chronic back pain 882361356 Active 2020 Brooke Suraez MD [address], [place], [address], [facility] 14:56:51 Problem Notes None recorded. Procedures Surgical History Date Name Laterality Status Provider Name and Address Organization Details Recorded Time 003 procedure on back completed [facility] 09/03/2020 15:00:18 003 procedure on neck completed [facility] 09/03/2020 15:00:29 003 procedure on pancreas completed [facility] 09/03/2020 15:00:58 998 complete repair of rotator cuff completed [facility] 09/03/2020 14:48:26 996 complete repair of rotator cuff [facility] 14:48:00 982 total abdominal hysterectomy with bilateral salpingo-oophorect kaleb completed Brooke Suarez MD [address], [place], [address], [facility] 09/03/2020 14:56:20 Cholecystectomy completed Cecilia [facility] 09/03/2020 14:48:43 Reconstruct shoulder joint completed GAGAN Faye [address], [place], [address], [facility] 02/09/2023 14:33:51 Imaging Results None recorded. Procedure Notes None recorded. Medical Equipment None Reported. Allergies Allergen ID Allergen Name Allergen Category Reaction Reaction Severity Criticality Documentation Date Start Date Code Code System Note Provider Name and Address Organization Details Recorded Time 58962 Substance with sulfonami de structure and antibacte rial mechanism of action (substanc e) medicatio n Not available Not available Not available 09/03/2020 24287 8003 SNOMED Cecilia Dos Santos [facility] 14:40:32 49239 Nubain medicatio n Not available Not available Not available 09/03/2020 7550 RxNorm Cecilia Dos Santos [facility] 14:40:39 01279 morphine medicatio n Not available Not available Not available 09/03/2020 7052 RxNorm [facility] 14:40:49 Medications Name Sig Start Date [...] Body mass index (BMI) Body weight Systolic And Diastolic Provider Name and Address Organization Details Last Updated DateTime 09/03/2020 157.48 cm 22.5 kg/m2 55552.86 g 148/75 mm[Hg] Cecilia Dos Santos [facility] 09/03/2020 14:40:13 Date Recorded Body height Body mass index (BMI) Body weight Systolic And Diastolic Provider Name and Address Organization Details Last Updated DateTime 02/09/2023 157.48 cm 22.5 kg/m2 35441.86 g 154/70 mm[Hg] Melonie Velazquez [facility] 02/09/2023 14:30:35 Social History Question Answer Notes LastModified by Organizat ion Details LastModified Time Tobacco Smoking Status Never Smoker [facility] 09/03/2020 14:47:40 Are You Blind Or Do You Have Difficulty Seeing? No Information not available 02/09/2023 Are You Deaf Or Do You Have Serious Difficulty Hearing? No Information not available 02/09/2023 Do You Have Difficulty Walking Or Climbing Stairs? No Information not available 02/09/2023 Sex: Unknown Functional Status Question Answer Note LastModified by Organizat ion Details LastModified Time Do you use any illicit or recreational drugs? No Information not available 09/03/2020 Do you or have you ever used any other forms of tobacco or nicotine? No Information not available 09/03/2020 What is your level of alcohol consumption? None Information not available 09/03/2020 Are you able to walk independently without assistance or assistive devices? YESWOREST Information not available 02/09/2023 Are you able to care for yourself independently? Yes Information not available 02/09/2023 Do you have difficulty dressing, bathing, grooming, or toileting? No Information not available 02/09/2023 Mental Status [...] Diagnosis SNOMED-CT Code Diagnosis ICD10 Code Diagnosis IMO Codes Diagnosis Note 02939 Brooke Suarez MD [place] [address] [address] 09/03/2020 14:33:25 09/03/2020 17:03:43 Gynecologic examination 56092039 Z01.419 Postmenopa usal osteopenia 662445074 M85.80 [id number] GAGAN Faye [place] [address] [address] 02/09/2023 13:51:20 02/09/2023 14:56:20 Pain of breast 85125754 N64.4 no lumps or masses felt on [...] Recorded Advance Directives Directive None Recorded Payers Insurance Date Sequence Insurance Name Policy Number Policy Alaniz Covered Member ID Alaniz Member ID Guarantor Name 06/01/2023 1 [facility] (MEDICARE REPLACEMENT/ ADVANTAGE - HMO) [id number] Saray Park [id number] Saray Park Notes Date Note Type Note Provider Name and Address Organization Details Recorded Time 09/03/2020 text/html Patient is a 74yo who presents for an annual exam. Referred by her daughter Eun Chirinos. CHARISSE/BSO in 80s for bleeding. No concerns except supposed to be on alendronate and vit D and needs new prescriptions. last pap-hyst mammo-3 years colonoscopy-seeing GI wednesday dexa- 3 years, abnormal, doesn't know details menopause-y sexually active-n seatbelts-y exercise-y depression-denies domestic violence-denies tobacco-n concerns-no Brooke Suarez MD [address], [place], [address], [facility] 09/03/2020 16:55:17 02/09/2023 text/html 77yopresents for [...] redness, irritation, SOB, etc GAGAN Faye [address], [place], [address], [facility] 02/09/2023 14:53:23 OBGyn Episode Ob Episode Information Episode Created Date Number of Fetuses Patient Bloodtype Patient rh Status Prepregnancy Weight lbs Domestic Partner Domestic Partner Phone Father Name Carburizer Status 09/04/19 21 1 CLOSED Fetus Data [...] Domestic Partner Domestic Partner Phone Father Name Carburizer Status 09/04/19 21 1 CLOSED Fetus Data [...]
--- OUTSIDE RECORDS SUMMARY | 2025-02-02 15:31 | XMS_ITS | Clinical Summary ---
Author Organization [facility] [address] Address [address] [place] [address] Care Team Providers Care Drapery And Upholstery Estimator Name Role Phone Milo Oden MD Primary Care Provider [phone] Sánchez Julian DO Unavailable [phone] Lev Diaz MD Unavailable [phone] Allergies Active Allergy Reactions Criticality Noted Date Comments Morphine Vomiting Low Nalbuphine Vomiting Low Sulfa (Sulfonamide Antibiotics) Nausea only,Urticaria Medium 03/29/2009 Iron Sucrose Nausea & Vomiting,Hypotension High 08/01/2021 Medications methadone (DOLOPHINE) 5 mg tabletIndicatio ns:1 or 2 tablets every 6 hours as needed Take 1-2 tablets (5-10 mg total) by mouth every 8 (eight) hours as needed 0 9 Active L gasseri/B bifidum/B longum ([facility] ORAL) Take 1 tablet by mouth daily 4 Active Creon 36,000-114,000- 180,000 unit capsule Take 1 capsule by mouth 3 (three) times a day before meals 2 Active omeprazole (PriLOSEC) 40 mg capsule Take 1 capsule (40 mg total) by mouth daily Active levothyroxine (SYNTHROID) 125 mcg tablet Take 1 tablet (125 mcg total) by mouth early childhood educator aide before breakfast Active lisinopriL (PRINIVIL,ZESTR [place]) 20 [...] times a day 60 tablet 3 Active ondansetron (ZOFRAN) 4 mg tablet Take 1 tablet (4 mg total) by mouth every 8 (eight) hours as needed for vomiting or nausea 270 tablet 3 5 Active ondansetron (ZOFRAN) 4 mg tablet Take 1 tablet (4 mg total) by mouth every 6 (six) hours as needed 4 02/01/20 25 Discontinu ed(Reorder ) Active Problems Problem Noted Date Diagnosed Date Primary osteoarthritis of right shoulder 023 Overview (08/12/2022): Added automatically from request for surgery [id number] Angio-edema 08/02/2021 Enterocolitis 08/02/2021 Primary hypertension 08/02/2021 Medication reaction, initial encounter Iron deficiency anemia due to chronic blood loss 07/30/2021 Gastric ulcer without hemorrhage or perforation 07/22/2021 Overview (08/27/2021): Added automatically from request for surgery [id number] Anemia 07/03/2021 Hypothyroidism 09/03/2020 Lumbosacral spondylosis without myelopathy 10/06 Other chronic pain 10/06/2018 Chronic right SI joint pain 10/06/2018 Low back pain 10/06/2018 Resolved Problems Problem Noted Date Diagnosed Date Resolved Date Gastric ulcer without hemorr enrique or perforation 07/22/2021 08/02/2021 Overview (07/22/2021): Added automatically from request for surgery [id number] Low back pain, non-specific 09/27/2018 08/02/2021 Encounters Date Type Department Care Team Description 01/31/2025 Orders Only [facility] Gastroenterology at [address] [place] [address] Ghanshyam Wade, DO from Last 3 Months Surgical History Surgery Date Site/Laterality Comments HYSTERECTOMY [...] on file Legal Sex Female 5:05 AM ACCOUNTS 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 Gender Identity Not on file Sexual Orientation Not on file 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 Not on file 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 Not on file Not on file Not [...] as needed Medical Devices Implanted Type Area Academy Director Device Identifier Shelf Expiration Date Model / Serial / Lot Pin Pin Right: Back Description:And right leg [employer] Baseplate Glenoid Rsp 30mm Titanium 508-32-204 - [id number] Implanted:Qty : 1 on 11/10/2022 by Lev Diaz MD at [facility] Right: Shoulder [employer] [id number] 08/11/2028 508-32-20 4 / / [id number] [employer] Screw Glenoid Locking Rsp 5.0x14mm Titanium 506-03-114 - [id number] Implanted:Qty : 1 on 11/10/2022 by Lev Diaz MD at [facility] Right: Shoulder [employer] [id number] 09/03/2028 4 / [id number] [employer] Screw Glenoid Locking Rsp 5.0x26mm Titanium 506-03-126 - [id number] Implanted:Qty : 1 on 11/10/2022 by Lev Diaz MD at [facility] Right: Shoulder [employer] [id number] 08/31/2028 6 / / [id number] [employer] Screw Glenoid Locking Rsp 5.0x26mm Titanium 506--126 - [id number] Implanted:Qty : 1 on 11/10/2022 by Lev Diaz MD at [facility] Right: Shoulder [employer] [id number] 08/31/2028 6 / [id number] [employer] Screw Glenoid Locking Rsp 5.0x14mm Titanium 506-03-114 - [id number] Implanted:Qty : 1 on 11/10/2022 by Lev Diaz MD at [facility] Right: Shoulder [employer] [id number] 09/03/2028 4 [id number] [employer] Head Humeral Shoulder Reverse Offset Rsp -4x32mm [place] Chromium 508-32-103 - [id number] Implanted:Qty : 1 on 11/10/2022 by Lev Diaz MD at [facility] Right: Shoulder [employer] [id number] 09/01/2028 508-32-10 3 / [id number] [employer] Insert Humeral Reverse Small Neutral Altivate Reverse 32mm 509-02-032 - [id number] Implanted:Qty : 1 on 11/10/2022 by Lev Diaz MD at [facility] Right: Shoulder [employer] [id number] 05/26/2027 509-02-03 2 / [id number] [employer] Stem Humeral Shoulder Reverse Altivate Reverse [id number] Titanium 533-08-108 - [id number] Implanted:Qty : 1 on 11/10/2022 by Lev Diaz MD at [facility] Right: Shoulder [employer] [id number] 09/03/2028 533-08-10 [id number] [facility] MEDICARE ADVANTAGE Advance Directives For more information, please contact: [phone] * Full Code (Latest Code Status on [...] Agents on File Name Relationship Healthcare Agent [facility] Communication Sánchez Calixish Spouse Health Care Agent Care Teams Drapery And Upholstery Estimator Relationship Specialty Start Date End Date Milo Oden MD [address] [place], [place] [id number] PCP - General Internal Medicine 12/02/16 Sánchez Julian DO [address] [place] [address] MEDICAL ONCOLOGY, [address] [place] [address] Medical Oncologist/Smoking Pipe Liner Hematology and Oncology 07/02/21 Lev Diaz MD [address] [place] [address] Consulting Physician Orthopedic Surgery 11/11/22
--- OUTSIDE RECORDS SUMMARY | 2025-02-02 15:31 | XMS_ITS | Clinical Summary ---
Author Organization [facility] Address [address] [place] [address] Phone Care Team Providers Care Hardboard Factory Worker Name Role Phone DaphneyMilo sepulveda Prema WHALEN Primary Care Provider [phone] Allergies Active Allergy Reactions Criticality Noted Date [...] 1996 Zoster Immunization (1 of 2) 1996 Medicare Initial AWV [id number] 05/03/2021 Respiratory Syncytial Virus (RSV) Immunization (Adult) (1 - 1-dose 75+ series) 2021 Influenza Immunization (#1) 2025 SARS-COV-2 Immunization ( - 2023- season) 2025 Colonoscopy Discontinued 01/11/2014 [...] MEDICARE C [employer] on file Care Teams Hardboard Factory Worker Relationship Specialty Start Date End Date Milo Oden DO [address] [place] [address] PCP - General Internal Medicine 11/10/18
--- OUTSIDE RECORDS SUMMARY | 2025-02-02 15:32 | XMS_ITS | Clinical Summary ---
Author Organization [facility] Address [address] [place] [address] Care Team Providers Care Wire Coater Name Role Phone Milo Oden Primary Care Provider Source Comments [facility],non-owned Affiliates and Associated Physician Practices is amultiple site organization consisting of ambulatory clinics and hospital sitesin [place], [place], [place] and [place]. This disclosure is being madepursuant to the Care Everywhere program and may not contain all information available regarding this patient. Last updated 18.[facility] Allergies Active Allergy Reactions Criticality Noted Date [...] needed for Heartburn. Active vitamin D2 (ERGOCALCIFEROL) 72624 UNIT capsule Take 1 Cap by mouth [...] on file Legal Sex Female 6:13 AM MOTTLE LAY UP OPERATOR Gender Identity Not on file Sexual Orientation Not on file Last Filed Vital Signs Vital Sign Reading Time Taken Comments Blood Pressure 105/55 04/04/2009 2:00 PM MOTTLE LAY UP OPERATOR Pulse 59 04/04/2009 2:00 PM MOTTLE LAY UP OPERATOR Temperature 37.2 C (98.9 F) 04/04/2009 2:00 PM MOTTLE LAY UP OPERATOR Respiratory Rate 16 04/04/2009 2:00 PM MOTTLE LAY UP OPERATOR Oxygen Saturation 99% 04/04/2009 2:00 PM MOTTLE LAY UP OPERATOR Inhaled Oxygen Concentration - - Weight 54.4 kg (120 lb) 04/02/2009 12:19 PM MOTTLE LAY UP OPERATOR Height 157.5 cm (5' 2) 04/02/2009 12:19 PM MOTTLE LAY UP OPERATOR Body Mass Index 21.95 04/02/2009 12:19 PM MOTTLE LAY UP OPERATOR Plan of Treatment Health Maintenance Due Date [...] complete this topic Insurance MEDICARE Care Teams Wire Coater Relationship Specialty Start Date End Date Milo Oden DO [address] [place] [address] PCP - General 02/22/19
--- OUTSIDE RECORDS SUMMARY | 2025-02-02 15:32 | XMS_ITS | Clinical Summary ---
Author Organization [facility] Nasim Burgess Address [address] [place] [address] Care Team Providers Care Mohs Surgeon/General Dermatologist Name Role Phone Unavailable Primary Care Provider [...] meals. Active L gasseri/B bifidum/B longum ([facility] ORAL) Take by mouth daily. Active [...] on file Legal Sex Female 3:30 AM CLAY MINE CUTTING MACHINE OPERATOR Gender Identity Not on file Sexual [...] years Discontinued Medical Devices Implanted Type Area Accounts Payable Associate Device Identifier Shelf Expiration Date Model / Serial / Lot Hemostatic Surgiflo 8ml W/ Thrombin 2994 - [id number] Implanted:Qty: 1 on 01/05/2024 by Chemo Cook MD at [facility] Hemostatic N/A: Spine Lumbar [employer] 08/30/2024 2994 / / [id number] Set Screw Implanted:Qty: 6 on 01/05/2024 by Chemo Cook MD at [facility] Other N/A: Spine Lumbar [employer] INC -2000 / / Description:1X ADD NELY Influx Proteios Large Implanted:Qty: 1 on 01/05/2024 by Chemo Cook MD at [facility] Other N/A: Spine Lumbar [employer] 09/13/2028 IFLX-GF-05 0 / / [id number] Description:1X ADD JM AVE TO FOLLOW-RDJ Body Top Loading Implanted:Qty: 6 on 01/05/2024 by Chemo Cook MD at [facility] Other N/A: Spine Lumbar [employer] 36-2101 / / Description:1X ADD JM Putty Graft I-Factor Peptide Enhanced 5.0ml Syr 700-050 - [id number] Implanted:Qty: 1 on 01/05/2024 by Chemo Cook MD at [facility] Putty N/A: Spine Lumbar [employer] 03/02/2026 700-050 / / [id number] Eric Frbrd Crv Ti 5.5x55mm [id number] - [id number] Implanted:Qty: 2 on 01/05/2024 by Chemo Cook MD at [facility] Eric N/A: Spine Lumbar [employer] 52-6055 / / Screw Implanted:Qty: 2 on 01/05/2024 by Cehmo Cook MD at [facility] Screw N/A: Spine Lumbar [employer] 44-5745 / / Description:1X ADD JM Screw Frbrd St 6.5x45mm 44-5645 - [id number] Implanted:Qty: 4 on 01/05/2024 by Chemo Cook MD at [facility] Screw N/A: Spine Lumbar [employer] INC [id number] / / Description:1X ADD NELY Putty Allofuse+ Dbm 5ml [id number] - [id number] Implanted:Qty: 1 on 01/05/2024 by Chemo Cook MD at [facility] Tissue N/A: Spine Lumbar [employer] 03/09/2025 [id number] / / [id number] Description:BR [id number] Bone Canc Crushed 30ml [id number] - [id number] Implanted:Qty: 1 on 01/05/2024 by Chemo Cook MD at [facility] Tissue N/A: Spine Lumbar [employer] [id number] 02/14/2028 [id number] / [id number] / Description:[id number] Right Shoulder Replacement Explanted Type Area Accounts Payable Associate Device Identifier Shelf Expiration Date Model / Serial / Lot Lumbar Hardware Explanted:Qty: 1 on 01/05/2024 by Chemo Cook MD at [facility] Description:Six screws; Two rods; Six set screws [...] refer to the full report available in [facility] under the PACS Images tab. If a faxed copy is needed, please call [phone]. DICTATION LOCATION: [facility] [place] Narrative 10/29/2023 2:29 PM CDT SUMMARY DEXA [...] refer to the full report available in [facility] under the PACS Images tab. If a faxed copy is needed, please call [phone]. DICTATION LOCATION: [facility] [place] Chemo Cook MD DIAGNOSTIC IMAGING ORDERABLES Final Result from Last 3 Months or Most Recently Relevant to Health Maintenance Insurance * Guarantor: Saray Park Account Type Relation to Patient Date of Phone Billing Address Personal/Family Self [address] [place] [id number] RX [employer] RX Member Subscriber Plan / Payer (Ef fective 2020-Present) Name:Saray Park Relation to Subscriber:Self Name:Saray Park Payer ID:Not on file Group ID:[id number] Type:RX Medicare Part D Address: [address] Advance Directives For more information, please contact: [phone] * Full Code (Latest Code Status on File) Date Activated Date Inactivated Comments 01/05/2024 2:42 PM 01/09/2024 8:37 PM
--- OUTSIDE RECORDS SUMMARY | 2025-02-02 15:32 | XMS_ITS | Encounter Summary ---
Author Organization [employer] Address [address] [place] [address] Care Team Providers Care Head Chopper Name Role Phone Milo Oden DO Primary Care Provider Encounter Details Date Type Department Care Team (Latest Contact Info) Description 06/22/2000 Outpatient Historical [facility] Nilesh Wheeler MD [address] [place] [address] Lumbago (Primary Dx) Social History Tobacco Use Types Packs/Day Years Used Date Smoking Tobacco: Never Assessed Comments Unknown Sex and Gender Information Value Date Recorded Sex Assigned at Not on file Legal Sex Female 3:30 AM UPFITTER Gender Identity Not on file Sexual Orientation Not on file documented as of this encounter Plan of Treatment Not on file documented as of this encounter Visit Diagnoses Diagnosis Lumbago- Primary documented in this encounter Care Teams Head Chopper Relationship Specialty Start Date End Date Milo Oden DO [address] [facility] [address] [place] [address] PCP - General Internal Medicine 05/05/22 12/21/23 documented as of this encounter
--- OUTSIDE RECORDS SUMMARY | 2025-02-02 15:32 | XMS_ITS | Encounter Summary ---
Author Organization [facility] Care Team Providers Care School Traffic Supervisor Name Role Phone Milo Oden MD Primary Care Provider [phone]- [phone] Sánchez Julian DO Unavailable [phone] Lev Diaz MD Unavailable [phone] Encounter Details Date Type Department Care Team (Latest Contact Info) Description 11/05/2017 Orders Only [facility] ProviderTaran MD [address] [place] [address] Social History Tobacco Use Types Packs/Day Years Used Date Smoking Tobacco: Never Assessed Comments Unknown Sex and Gender Information Value Date Recorded Sex Assigned at Not on file Legal Sex Female 5:05 AM CARDIOPULMONARY SPECIALIST Gender Identity Not on file Sexual [...] on filedocumented in this encounter Care Teams School Traffic Supervisor Relationship Specialty Start Date End Date Milo Oden MD [address] [facility] [address] [place] [address] PCP - General Internal Medicine 12/02/16 Sánchez Julian DO [address] [place] [address] MEDICAL ONCOLOGY, [address] [address] Medical Oncologist/Fibreglass Gun Hand Hematology and Oncology 07/02/21 Lev Diaz MD [address] [facility] [address] [address] [place] [address] Consulting Physician Orthopedic Surgery 11/11/22 documented as of this encounter
--- OUTSIDE RECORDS SUMMARY | 2025-02-02 15:32 | XMS_ITS | Patient Health Record ---
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) Active confirmed Problem Lumbar post-laminectomy syndrome (495030672) Lumbar post-laminectomy syndrome (M96.1) Active confirmed Problem Arthritis of lumbosacral spine (459911460) Arthritis of lumbosacral spine (M47.817) Active confirmed Problem Bilateral sacroiliitis (0021634551) Bilateral sacroiliitis (M46.1) Active confirmed Problem Lumbar spinal stenosis (58479657) Lumbar foraminal stenosis (M48.061) Active confirmed Vital Signs Heart Rate 65 /min 01/17/2025 Temperature 97.6 degrees Fahrenheit 01/17/2025 Respiratory Rate 18 /min 01/17/2025 Blood pressure diastolic 65 mm Hg 01/17/2025 Height 62 in 01/17/2025 Blood pressure systolic 165 mm Hg 01/17/2025 Weight 120 lbs 01/17/2025 BMI 21.95 kg/m2 01/17/2025 Encounters Encounter Location Date Provider Diagnosis [address] [address] 02/29/2024 Nilesh Wheeler Lumbar post-laminect kaleb syndrome M96.1 ; Spondylosis without myelopathy or radiculopathy, 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 ; Arthritis of lumbosacral spine M47.817 and Bilateral sacroiliitis M46.[address] [address] 04/20/2024 Nilesh Wheeler Lumbar post-laminect kaleb syndrome M96.1 ; Spondylosis without myelopathy or radiculopathy, 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 ; Arthritis of lumbosacral spine M47.817 and Bilateral sacroiliitis M46.[address] [address] 07/04/2024 Nilesh Wheeler Lumbar post-laminect kaleb syndrome M96.1 ; Spondylosis without myelopathy or radiculopathy, 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 ; Arthritis of lumbosacral spine M47.817 ; Bilateral sacroiliitis M46.1 and Lumbar foraminal stenosis M48.[address] [address] 08/30/2024 Nilesh Wheeler Lumbar post-laminect kaleb syndrome M96.1 ; Spondylosis without myelopathy or radiculopathy, 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 ; Arthritis of lumbosacral spine M47.817 ; Bilateral sacroiliitis M46.1 and Lumbar foraminal stenosis M48.[address] [address] 11/14/2024 Nilesh Wheeler Lumbar post-laminect kaleb syndrome M96.1 ; Spondylosis without myelopathy or radiculopathy, 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 ; Arthritis of lumbosacral spine M47.817 ; Bilateral sacroiliitis M46.1 and Lumbar foraminal stenosis M48.[address] [address] 01/17/2025 Nilesh Wheeler Lumbar post-laminect kaleb syndrome M96.1 ; Spondylosis without myelopathy or radiculopathy, 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 ; Arthritis of lumbosacral spine M47.817 ; Bilateral sacroiliitis M46.1 and Lumbar foraminal stenosis M48.061 [facility] [address] [place] [address] 02/29/2024 Nilesh Wheeler Lumbar post-laminect kaleb syndrome [...] Name:Nilesh Jansen idt, 03/21/2025 10:30:00 AM, [address] [facility], [facility] [address], [address], Medications Administered Medication Instructions Date of Administration [...]
--- OUTSIDE RECORDS SUMMARY | 2025-02-02 15:32 | XMS_ITS | Encounter Summary ---
Author Organization [employer] Address [address] [place] [address] Care Team Providers Care Recruiting Scheduler Name Role Phone Milo Oden DO Primary Care Provider [phone] Encounter Details Date Type Department Care Team (Latest Contact Info) Description 01/06/2000 Outpatient Historical [facility] Nilesh Wheeler MD [address] [place] [address] Lumbago (Primary Dx) Social History Tobacco Use Types Packs/Day Years Used Date Smoking Tobacco: Never Assessed Comments Unknown Sex and Gender Information Value Date Recorded Sex Assigned at Not on file Legal Sex Female 3:30 AM [employer] Gender Identity Not on file Sexual Orientation Not on file documented as of this encounter Plan of Treatment Not on file documented as of this encounter Visit Diagnoses Diagnosis Lumbago- Primary documented in this encounter Care Teams Recruiting Scheduler Relationship Specialty Start Date End Date Milo Oden DO [address] [facility] [address] [place] [id number] PCP - General Internal Medicine 05/05/22 12/21/23 documented as of this encounter
[2025-02-02 16:38] LABS: Hematocrit 31.1 % (37.0-47.0); Hemoglobin 9.9 g/dL (12.0-15.0); Immature Granulocyte Percent A 0.5 % (0-0.5); Lymphocytes Absolute Auto 1.62 K/mm3 (0.9-3.2); Mean Corpuscular HGB Conc 31.8 g/dl (32-36); Mean Corpuscular Hemoglobin 28.9 pg (26-34); Mean Corpuscular Volume 90.9 fl (80-100); Nucleated Red Blood Cells Absolute Auto 0.000 K/mm3 (0.0-0.012); Nucleated Red Blood Cells Perc 0.0 % (0.0-0.2); Platelet Count Result 329 k/mm3 (150-375); Red Blood Count 3.42 M/mm3 (4.2-5.4); White Blood Count 10.9 K/mm3 (4.5-10.0)
[2025-02-02 16:51] LABS: Alanine Aminotransferase 23 U/L (6-35); Albumin Level 4.1 g/dL (3.5-5.1); Alkaline Phosphatase 120 U/L (38-126); Anion Gap 7 mmol/L (4-12); Aspartate Amino Transferase 40 U/L (14-36); Bilirubin,Total 0.4 mg/dL (0.2-1.3); Blood Urea Nitrogen 22 mg/dL (7-17); Calcium 8.6 mg/dL (8.4-10.2); Carbon Dioxide 30 mmol/L (22-30); Chloride 99 mmol/L (98-107); Cholesterol 148 mg/dL (0-200); Estimated Glomerular Filt Rate 43; Glucose 80 mg/dL (65-110); HDL Direct 61 mg/dL; Magnesium 2.4 mg/dL (1.6-2.3); Potassium 4.1 mmol/L (3.4-5.0); Sodium 136 mmol/L (137-145); Total Protein 8.2 g/dL (6.3-8.2); Triglycerides 59 mg/dL (<150)
[2025-02-02 17:12] LABS: Free T4 Free Thyroxine 1.32 ng/dL (0.78-2.19)
[2025-02-02 17:15] LABS: Influenza A QL RT-PCR Negative (Negative); Influenza B QL RT-PCR Negative (Negative); RSV RNA, RT-PCR Negative (Negative); SARS-CoV-2 RNA PCR Negative (Negative)
[2025-02-02 17:26] LABS: Thyroid Stimulating Hormone 1.550 uIU/mL (0.465-4.680)
[2025-02-02 17:45] LABS: Vitamin B12 925.0 pg/mL (239-931)
== END 2025-02-02 15:28 | disposition home or self-care (01) ==
PROVIDERS: PCP Internal Medicine; Visit Provider Internal Medicine
DX: E03.9 Hypothyroidism, unspecified (principal); I10 Essential (primary) hypertension; D64.9 Anemia, unspecified; E78.5 Hyperlipidemia, unspecified; E53.8 Deficiency of other specified B group vitamins; E55.9 Vitamin D deficiency, unspecified; R25.2 Cramp and spasm; J06.9 Acute upper respiratory infection, unspecified; M54.9 Dorsalgia, unspecified; G89.29 Other chronic pain; M79.604 Pain in right leg; M79.605 Pain in left leg
CPT/HCPCS: 36415; 72100; 73590; 80053; 80061; 82306; 82607; 83735; 84439; 84443; 85025; 87637